=== PATIENT | male | born 1965 | race Caucasian/White ===

== ENCOUNTER 2016-09-17 16:10 | Inpatient (IN) | payer OTHER ==
[2016-09-17] MEDS ORDERED: NITROGLYCERIN OINT 1 INCH/GM PACKET TOPICAL STA (16:32)
[2016-09-17] MEDS ORDERED: ASPIRIN 81 MG CHEW PO STA (16:32)
--- NOTE | 2016-09-17 16:38 | ED ---
General Adult HPI - General Chief complaint: Chest Pain Stated complaint: Chest Pressure Time Seen by Provider: 09/17/16 16:28 Source: patient, RN notes reviewed Mode of arrival: wheelchair Limitations: no limitations - History of Present Illness Initial comments: Patient is a pleasant 51-year-old male presenting to the emergency department complaining of chest discomfort. Onset of symptoms was 3 or 4 days ago. Symptoms have been intermittent however today are more steady. Patient has pressure in the mid chest. No radiation. No associated dyspnea or nausea or diaphoresis. Discomfort has been as high as a 4-5/10. Discomfort is currently only 1/10. No history of similar symptoms previously. Discomfort is not positional. Discomfort is nonexertional. No leg pain or swelling. No cough or fever. - Related Data Home Medications Medication Instructions Recorded Confirmed Aspirin 81 mg PO DAILY 10/22/15 09/17/16 Ferrous Sulfate [Iron (65 MG 325 mg PO DAILY 09/17/16 09/17/16 Elemental)] Multivitamins, Thera [Multivitamin 1 tab PO DAILY 09/17/16 09/17/16 (formulary)] Naproxen Sodium [Aleve] 220 mg PO BID PRN 09/17/16 09/17/16 Allergies Allergy/AdvReac Type Severity Reaction Status Date / Time oxycodone HCl [From Percocet] AdvReac VOMITING, Verified 09/17/16 16:42 HOT FLASHES, ROOM SPINNING Review of Systems ROS Statement: Those systems with pertinent positive or pertinent negative responses have been documented in the HPI. ROS Other: All systems not noted in ROS Statement are negative. Constitutional: Denies: fever Eyes: Denies: eye pain ENT: Denies: ear pain Respiratory: Denies: cough, dyspnea Cardiovascular: Reports: chest pain. Denies: palpitations Endocrine: Denies: fatigue Gastrointestinal: Denies: abdominal pain Genitourinary: Denies: dysuria Musculoskeletal: Denies: back pain Skin: Denies: rash Neurological: Denies: weakness Past Medical History Past Medical History: No Reported History History of Any Multi-Drug Resistant Organisms: None Reported Past Surgical History: No Surgical Hx Reported Past Psychological History: No Psychological Hx Reported Smoking Status: Never smoker Past Alcohol Use History: None Reported Past Drug Use History: None Reported General Exam Limitations: no limitations General appearance: alert, in no apparent distress Head exam: Present: atraumatic Eye exam: Present: normal appearance, PERRL ENT exam: Present: normal oropharynx Neck exam: Present: normal inspection Respiratory exam: Present: normal lung sounds bilaterally. Absent: chest wall tenderness Cardiovascular Exam: Present: regular rate, normal rhythm Expanded Peripheral pulses: 2+: Radial (R), Radial (L), Dorsalis Pedis (R), Dorsalis Pedis (L) GI/Abdominal exam: Present: soft. Absent: tenderness Extremities exam: Present: normal inspection. Absent: pedal edema, calf tenderness Neurological exam: Present: alert Psychiatric exam: Present: normal affect, normal mood Skin exam: Absent: rash Course Vital Signs 09/17/16 09/17/16 09/17/16 16:16 16:29 16:36 Temperature 98.2 F Pulse Rate 71 76 Pulse Rate [ 67 Dehydrator Tender ] Respiratory 18 18 Rate Blood Pressure 139/82 146/76 O2 Sat by Pulse 97 98 Oximetry 09/17/16 18:10 Temperature Pulse Rate 67 Pulse Rate [ Dehydrator Tender ] Respiratory 16 Rate Blood Pressure 129/76 O2 Sat by Pulse 95 Oximetry EKG Findings - EKG Comments: EKG Findings:: Normal sinus rhythm at 68. Normal intervals. Normal axis. Normal QRS. Normal ST-T. Medical Decision Making - Medical Decision Making Patient reexamined and resting comfortably in bed. Dr. Wharton has been paged for admission. - Lab Data Result diagrams: 09/17/16 16:27 09/17/16 16:27 Lab Results 09/17/16 09/17/16 09/17/16 Range/Units 16:27 16:27 16:27 WBC 9.1 (3.8-10.6) k/uL RBC 4.79 (4.30-5.90) m/uL Hgb 14.1 (13.0-17.5) gm/dL Hct 42.8 (39.0-53.0) % MCV 89.4 (80.0-100.0) fL MCH 29.5 (25.0-35.0) pg MCHC 33.0 (31.0-37.0) g/dL RDW 13.4 (11.5-15.5) % Plt Count 287 (150-450) k/uL Neutrophils % 59 % Lymphocytes % 29 % Monocytes % 6 % Eosinophils % 3 % Basophils % 1 % Neutrophils # 5.3 (1.3-7.7) k/uL Lymphocytes # 2.6 (1.0-4.8) k/uL Monocytes # 0.5 (0-1.0) k/uL Eosinophils # 0.3 (0-0.7) k/uL Basophils # 0.1 (0-0.2) k/uL PT (9.0-12.0) sec INR (<1.1) APTT (22.0-30.0) sec Sodium 141 (137-145) mmol/L Potassium 4.2 (3.5-5.1) mmol/L Chloride 106 (98-107) mmol/L Carbon Dioxide 24 (22-30) mmol/L Anion Gap 11 mmol/L BUN 22 H (9-20) mg/dL Creatinine 1.00 (0.66-1.25) mg/dL Est GFR (MDRD) Af Amer >60 (>60 ml/min/1.73 sqM) Est GFR (MDRD) Non-Af >60 (>60 ml/min/1.73 sqM) Glucose 103 H (74-99) mg/dL Calcium 9.8 (8.4-10.2) mg/dL Magnesium 1.9 (1.6-2.3) mg/dL Total Bilirubin 0.6 (0.2-1.3) mg/dL AST 37 (17-59) U/L ALT 35 (21-72) U/L Alkaline Phosphatase 48 (38-126) U/L Total Creatine Kinase 575 H (55-170) U/L CK-MB (CK-2) 1.1 (0.0-2.4) ng/mL CK-MB (CK-2) Rel Index 0.2 Troponin I <0.012 (0.000-0.034) ng/mL Total Protein 7.9 (6.3-8.2) g/dL Albumin 4.6 (3.5-5.0) g/dL 09/17/16 Range/Units 16:27 WBC (3.8-10.6) k/uL RBC (4.30-5.90) m/uL Hgb (13.0-17.5) gm/dL Hct (39.0-53.0) % MCV (80.0-100.0) fL MCH (25.0-35.0) pg MCHC (31.0-37.0) g/dL RDW (11.5-15.5) % Plt Count (150-450) k/uL Neutrophils % % Lymphocytes % % Monocytes % % Eosinophils % % Basophils % % Neutrophils # (1.3-7.7) k/uL Lymphocytes # (1.0-4.8) k/uL Monocytes # (0-1.0) k/uL Eosinophils # (0-0.7) k/uL Basophils # (0-0.2) k/uL PT 10.3 (9.0-12.0) sec INR 1.0 (<1.1) APTT 24.5 (22.0-30.0) sec Sodium (137-145) mmol/L Potassium (3.5-5.1) mmol/L Chloride (98-107) mmol/L Carbon Dioxide (22-30) mmol/L Anion Gap mmol/L BUN (9-20) mg/dL Creatinine (0.66-1.25) mg/dL Est GFR (MDRD) Af Amer (>60 ml/min/1.73 sqM) Est GFR (MDRD) Non-Af (>60 ml/min/1.73 sqM) Glucose (74-99) mg/dL Calcium (8.4-10.2) mg/dL Magnesium (1.6-2.3) mg/dL Total Bilirubin (0.2-1.3) mg/dL AST (17-59) U/L ALT (21-72) U/L Alkaline Phosphatase (38-126) U/L Total Creatine Kinase (55-170) U/L CK-MB (CK-2) (0.0-2.4) ng/mL CK-MB (CK-2) Rel Index Troponin I (0.000-0.034) ng/mL Total Protein (6.3-8.2) g/dL Albumin (3.5-5.0) g/dL - Radiology Data Radiology results: image reviewed (Chest x-ray shows no acute process) Disposition Clinical Impression: Chest pain Disposition: ADMITTED IP TO THIS HOSP
[2016-09-17 16:46] LABS: Basophils # (A) 0.1 k/uL (0-0.2); Basophils % (A) 1 %; CH 30.1; CHCM 33.8; Eosinophils # (A) 0.3 k/uL (0-0.7); Eosinophils % (A) 3 %; HCT 42.8 % (39.0-53.0); HDW 2.44; HGB 14.1 gm/dL (13.0-17.5); Luc # (Auto) 0.19; Luc % (Auto) 2; Lymphocytes # (A) 2.6 k/uL (1.0-4.8); Lymphocytes % (A) 29 %; MCH 29.5 pg (25.0-35.0); MCV 89.4 fL (80.0-100.0); Mean Platelet Volume 6.9; Monocytes # (A) 0.5 k/uL (0-1.0); Monocytes % (A) 6 %; Neutrophils # (A) 5.3 k/uL (1.3-7.7); Neutrophils % (A) 59 %; RBC 4.79 m/uL (4.30-5.90); RDW 13.4 % (11.5-15.5); WBC 9.1 k/uL (3.8-10.6); WBC (Perox) 8.79
[2016-09-17 16:55] LABS: ALT 35 U/L (21-72); AST 37 U/L (17-59); Alkaline Phosphatase 48 U/L (38-126); Anion Gap 11 mmol/L; Blood Urea Nitrogen 22 mg/dL (9-20); Calcium 9.8 mg/dL (8.4-10.2); Carbon Dioxide 24 mmol/L (22-30); Chloride 106 mmol/L (98-107); Glucose 103 mg/dL (74-99); Magnesium 1.9 mg/dL (1.6-2.3); Non-African American GFR(MDRD) >60 (>60 ml/min/1.73 sqM); Potassium 4.2 mmol/L (3.5-5.1); Sodium 141 mmol/L (137-145); Total Bilirubin 0.6 mg/dL (0.2-1.3); Total Protein 7.9 g/dL (6.3-8.2)
[2016-09-17 17:03] LABS: Partial Thromboplastin Time 24.5 sec (22.0-30.0); Prothrombin Time 10.3 sec (9.0-12.0)
[2016-09-17 17:17] LABS: Creatine Kinase 575 U/L (55-170)
--- NOTE | 2016-09-17 17:18 | XR ---
EXAMINATION TYPE: XR chest 2V DATE OF EXAM: 09/17/2016 4:59 PM COMPARISON: NONE HISTORY: Chest pressure TECHNIQUE: Frontal and lateral views of the chest are obtained. FINDINGS: Heart and mediastinum are normal. Lungs are clear. Diaphragm is normal. Bony thorax appear s normal. There are chest leads. IMPRESSION: Normal chest
[2016-09-17 17:29] LABS: Creatine Kinase MB 1.1 ng/mL (0.0-2.4); Troponin I <0.012 ng/mL (0.000-0.034)
[2016-09-17] MEDS ORDERED: NITROGLYCERIN SL TABS 0.4 MG TAB SUBLINGUAL PRN (19:06)
[2016-09-17 22:50] LABS: Creatine Kinase 429 U/L (55-170)
[2016-09-17 23:04] LABS: Creatine Kinase MB 0.8 ng/mL (0.0-2.4); Troponin I <0.012 ng/mL (0.000-0.034)
[2016-09-18] MEDS: NITROGLYCERIN OINT 1 INCH/GM PACKET TOPICAL SCH ×2 (00:08→04:59)
[2016-09-18 05:14] LABS: Cholesterol 185 mg/dL (<200); HDL Cholesterol 41 mg/dL (40-60); Triglycerides 169 mg/dL (<150)
[2016-09-18 05:20] LABS: Creatine Kinase 407 U/L (55-170)
[2016-09-18 05:32] LABS: Creatine Kinase MB 0.7 ng/mL (0.0-2.4); Troponin I <0.012 ng/mL (0.000-0.034)
--- NOTE | 2016-09-18 08:52 | P.CRDCN ---
History of Present Illness Consult date: 09/18/16 History of present illness: This is a 51-year-old gentleman with no significant past medical history has been running having a tight feeling in the lower mid sternal area for the last 3 to4 days. The pain is felt most at rest. He claims that physical exertion makes it less intense. Yesterday the pain became more constant. This is a mild discomfort. He did not have any nausea vomiting or sweating. Because of ongoing chest pain patient came to the emergency room. EKGs did not reveal any acute changes. Cardiac enzymes studies are negative. Patient was treated with Nitropaste without much relief. Patient denies any acid reflux. Denies any previous hypertension diabetes angina or myocardial infarction. His father and grandfather had congestive heart failure. No family history of previous myocardial infarction. His cholesterol levels are normal. We discussed about the further evaluation and the choice of stress test versus cardiac catheterization. Patient preferred to have a stress test and a stress echo is being scheduled. Further recommendation will depend upon the findings on the stress test Review of Systems REVIEW OF SYSTEMS: CONSTITUTIONAL:. Patient is doing well. No complaints of fever or chills EYES: Denies diplopia, blurring of vision EARS, NOSE, MOUTH, THROAT: Denies headaches, denies sore throat. CARDIOVASCULAR: As per HPI RESPIRATORY: Denies shortness of breath, denies cough. GASTROINTESTINAL: Denies change in appetite, denies abdominal pain, denies diarrhea GENITOURINARY: Denies hematuria, denies infections. MUSKULOSKELETAL: Denies pain, denies swelling. Denies any cramps or claudication INTEGUMENTARY: Denies rash, denies eczema. NEUROLOGICAL: Denies focal weakness, or visual disturbance. Denies any dizziness or syncope PSYCHIATRIC: Denies anxiety, denies depression. HEMATOLOGIC/LYMPHATIC: Denies any bleeding, denies enlarged lymph nodes. Past Medical History Past Medical History: No Reported History Additional Past Medical History / Comment(s): slightly high cholestrol watching diet and taking fish oil, kidney stones in the past History of Any Multi-Drug Resistant Organisms: None Reported Past Surgical History: Appendectomy Additional Past Surgical History / Comment(s): colonoscopy negative Additional Past Anesthesia/Blood Transfusion Reaction / Comment(s): no hx of surgeries Past Psychological History: No Psychological Hx Reported Smoking Status: Never smoker Past Alcohol Use History: None Reported Past Drug Use History: None Reported - Past Family History Father Family Medical History: Congestive Heart Failure (CHF), Diabetes Mellitus Additional Family Medical History / Comment(s): kidney and liver failure - passed at 72 Mother Family Medical History: Cancer Additional Family Medical History / Comment(s): breast cancer Medications and Allergies Home Medications Medication Instructions Recorded Confirmed Type Aspirin 81 mg PO DAILY 10/22/15 09/17/16 History Ferrous Sulfate [Iron (65 MG 325 mg PO DAILY 09/17/16 09/17/16 History Elemental)] Fish Oil/Dha/Epa [Fish Oil 1,200 1 each PO BID 09/17/16 09/17/16 History mg Fish Oil] Multivitamins, Thera [Multivitamin 1 tab PO DAILY 09/17/16 09/17/16 History (formulary)] Naproxen Sodium [Aleve] 220 mg PO BID PRN 09/17/16 09/17/16 History Allergies Allergy/AdvReac Type Severity Reaction Status Date / Time oxycodone HCl [From Percocet] AdvReac VOMITING, Verified 09/17/16 16:42 HOT FLASHES, ROOM SPINNING Physical Exam Vitals: Vital Signs Temp Pulse Pulse Pulse Resp BP BP 09/18/16 08:39 09/18/16 07:14 98.7 F 78 16 111/55 09/18/16 04:00 97.8 F 59 L 16 99/51 09/18/16 03:37 68 18 09/18/16 00:00 98.4 F 67 16 118/66 09/17/16 23:22 61 18 09/17/16 20:00 69 18 09/17/16 19:50 98.4 F 97 18 122/74 Pulse Ox 09/18/16 08:39 97 09/18/16 07:14 94 L 09/18/16 04:00 93 L 09/18/16 03:37 09/18/16 00:00 92 L 09/17/16 23:22 09/17/16 20:00 09/17/16 19:50 97 Intake and Output 09/17/16 09/18/16 09/18/16 22:59 06:59 14:59 Other: Voiding Method Toilet Toilet # Voids 2 Weight 111.13 kg 111.13 kg GENERAL EXAM: Patient is alert and oriented and doesn't appear to be in any acute distress HEENT: Normocephalic. Normal reaction of pupils, equal size, normal range of extraocular motion. No erythema or exudates in the throat. NECK: No masses, no nuchal rigidity. CHEST: No chest wall deformity. LUNGS: Equal air entry with no crackles or wheeze. HEART: S1 and S2 normal with no audible mumurs or gallops. Regular rhythm, femorals equal on both sides.. ABDOMEN: No hepatosplenomegaly, normal bowel sounds, no guarding or rigidity. SKIN: No rashes CENTRAL NERVOUS SYSTEM: No focal deficits. EXTREMITIES: No cyanosis, clubbing or edema. Results 09/17/16 16:27 09/17/16 16:27 Cardiac Enzymes 09/17/16 09/18/16 Range/Units 22:08 04:00 CK-MB (CK-2) 0.8 0.7 (0.0-2.4) ng/mL Troponin I <0.012 <0.012 (0.000-0.034) ng/mL Lipids 09/18/16 Range/Units 04:00 Triglycerides 169 H (<150) mg/dL Cholesterol 185 (<200) mg/dL HDL Cholesterol 41 (40-60) mg/dL Current Medications Generic Name Dose Route Start Last Admin Trade Name Freq PRN Reason Stop Dose Admin Aspirin 325 mg 09/18/16 09:00 Aspirin PO DAILY NAHUN Nitroglycerin 0.4 mg 09/17/16 19:06 Nitrostat SUBLINGUAL Q5M PRN Chest Pain Intake and Output 09/17/16 09/18/16 09/18/16 22:59 06:59 14:59 Other: Voiding Method Toilet Toilet # Voids 2 Weight 111.13 kg 111.13 kg EKG Interpretations (text) Sinus rhythm Assessment and Plan (1) Chest pain Status: Acute Plan: Patient is admitted with the recurrent prolonged chest discomfort with negative enzymes and EKGs. Patient doesn't have any significant risk factors. We'll proceed with stress echocardiogram. If that is negative patient could be discharged home. If the test is positive, patient may need cardiac catheterization.
--- NOTE | 2016-09-18 12:05 | P.HPIM ---
History of Present Illness If D1-year-old male presented to the emergency room with complaints of intermittent chest pressure not related to activity no nausea diaphoresis or radiation. Patient has negative medical history at this point Review of Systems Cardiovascular: Reports chest pain Past Medical History Past Medical History: No Reported History Additional Past Medical History / Comment(s): slightly high cholestrol watching diet and taking fish oil, kidney stones in the past History of Any Multi-Drug Resistant Organisms: None Reported Past Surgical History: Appendectomy Additional Past Surgical History / Comment(s): colonoscopy negative Additional Past Anesthesia/Blood Transfusion Reaction / Comment(s): no hx of surgeries Past Psychological History: No Psychological Hx Reported Smoking Status: Never smoker Past Alcohol Use History: None Reported Past Drug Use History: None Reported - Past Family History Father Family Medical History: Congestive Heart Failure (CHF), Diabetes Mellitus Additional Family Medical History / Comment(s): kidney and liver failure - passed at 72 Mother Family Medical History: Cancer Additional Family Medical History / Comment(s): breast cancer Medications and Allergies Home Medications Medication Instructions Recorded Confirmed Type Aspirin 81 mg PO DAILY 10/22/15 09/17/16 History Ferrous Sulfate [Iron (65 MG 325 mg PO DAILY 09/17/16 09/17/16 History Elemental)] Fish Oil/Dha/Epa [Fish Oil 1,200 1 each PO BID 09/17/16 09/17/16 History mg Fish Oil] Multivitamins, Thera [Multivitamin 1 tab PO DAILY 09/17/16 09/17/16 History (formulary)] Naproxen Sodium [Aleve] 220 mg PO BID PRN 09/17/16 09/17/16 History Allergies Allergy/AdvReac Type Severity Reaction Status Date / Time oxycodone HCl [From Percocet] AdvReac VOMITING, Verified 09/17/16 16:42 HOT FLASHES, ROOM SPINNING Physical Exam Vitals: Vital Signs Temp Pulse Pulse Pulse Resp BP BP 09/18/16 08:39 09/18/16 07:14 98.7 F 78 16 111/55 09/18/16 04:00 97.8 F 59 L 16 99/51 09/18/16 03:37 68 18 09/18/16 00:00 98.4 F 67 16 118/66 09/17/16 23:22 61 18 09/17/16 20:00 69 18 09/17/16 19:50 98.4 F 97 18 122/74 Pulse Ox 09/18/16 08:39 97 09/18/16 07:14 94 L 09/18/16 04:00 93 L 09/18/16 03:37 09/18/16 00:00 92 L 09/17/16 23:22 09/17/16 20:00 09/17/16 19:50 97 Intake and Output 09/17/16 09/18/16 09/18/16 22:59 06:59 14:59 Other: Voiding Method Toilet Toilet Toilet # Voids 2 Weight 111.13 kg 111.13 kg - Constitutional General appearance: obese - EENT Eyes: PERRLA Ears: bilateral: normal - Neck Neck: normal ROM - Respiratory Respiratory: negative: CTA - Cardiovascular Rhythm: regular - Gastrointestinal General gastrointestinal: soft - Integumentary Integumentary: normal - Neurologic Neurologic: CNII-XII intact - Musculoskeletal Musculoskeletal: gait normal - Psychiatric Psychiatric: A&O x's 3, appropriate affect, intact judgment & insight Results CBC & Chem 7: 09/17/16 16:27 09/17/16 16:27 Labs: Abnormal Lab Results - Last 24 Hours (Table) 09/17/16 09/18/16 09/18/16 Range/Units 22:08 04:00 04:00 Total Creatine Kinase 429 H 407 H (55-170) U/L Triglycerides 169 H (<150) mg/dL LDL Cholesterol, Calc 110 H (0-99) mg/dL Chest x-ray: report reviewed Thrombosis Risk Factor Assmnt - Choose All That Apply Each Factor Represents 1 point: Age 41-60 years, Obesity (BMI >25) Thrombosis Risk Factor Assessment Total Risk Factor Score: 2 Thrombosis Risk Factor Assessment Level: Low Risk Assessment and Plan Plan: Assessment Chest pain Hyperlipidemia Plan Cardiology consultation Awaiting results of stress test for discharge
[2016-09-18] MEDS: ASPIRIN 325 MG TAB PO SCH (12:13)
--- NOTE | 2016-09-18 12:18 | ECHOS ---
DATE OF SERVICE: 09/18/2016 AGE: 51Y SEX: M HT: 71 WT: 245 lbs. Protocol Oscar: X Others: Stress Echo Stage: IV Dur. of Exercise: 10 minutes *Heart Rate Blood Pressure *Rest: 69 Rest: 120/47 * *Max. Achieved: 150 Maximum BP: 194/55 85% PMHR: 142 100% PMHR: 167 *METS: 11.3 INDICATIONS: Chest pain. MEDICATIONS: CLINICAL INFORMATION: Chest pain and family history of coronary artery disease. Resting ECG shows sinus rhythm, rate of 69 beats per minute, MS interval 0.16, QRS 0.08, normal ST-T waves. Utilizing a standard Oscar protocol, a symptom limited treadmill test was performed. Patient exercised for total of 10 minutes, attained a peak heart rate of 150 beats per minute, which is approximately 90% of predicted maximum heart rate without any chest pain or pressure. Noted to have 1.[address] segment depression in the inferior leads at peak exertion without any associated symptoms. Baseline images show normal thickening and contractility. Postexercise images shows mild hypokinesis of the inferior wall, basal inferior wall and also apex consistent with stress induced wall motion abnormalities or exercise induced wall motion abnormalities and suggestive of underlying ischemia associated with EKG changes without any symptoms. 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 Abnormal stress echocardiogram with hypokinesis of the inferior wall and apex suggestive of exercise induced ischemia without any symptoms. 2. Patient also had 1.[address] segment depression in the inferior leads without any symptoms suggestive of ischemia also. 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
[2016-09-18] MEDS ORDERED: ALPRAZolam 0.5 MG TAB PO PRN (17:33)
[2016-09-18] MEDS ORDERED: SODIUM CHLORIDE 0.9% 1,000 ML in EMPTY BAG 1 BAG IV ONE (17:33)
[2016-09-18] MEDS ORDERED: ASPIRIN 325 MG TAB PO STA (17:33)
[2016-09-18] MEDS ORDERED: ATORVASTATIN 80 MG TAB PO STA (17:33)
[2016-09-18] MEDS ORDERED: NITROGLYCERIN SL TABS 0.4 MG TAB SUBLINGUAL PRN (17:33)
[2016-09-18] MEDS ORDERED: ALPRAZolam 0.25 MG TAB PO PRN (17:33)
[2016-09-19] MEDS: ASPIRIN 325 MG TAB PO SCH (06:24)
[2016-09-19] MEDS ORDERED: IV FLUID CONTINUATION 1,000 ML IV ONE (07:40)
[2016-09-19] MEDS ORDERED: MIDAZOLAM 2 MG/2 ML VIAL ONE ×2 (07:49→10:55)
[2016-09-19] MEDS ORDERED: fentaNYL (PF) 50 MCG/ML 2 ML AMP ONE (07:49)
[2016-09-19] MEDS ORDERED: fentaNYL (PF) 50 MCG/ML 2 ML AMP IV ONE (08:14)
[2016-09-19] MEDS ORDERED: MIDAZOLAM 2 MG/2 ML VIAL IV ONE (08:14)
[2016-09-19] MEDS ORDERED: LIDOCAINE 2% INJ 20 MG/ML SQ ONE (08:17)
[2016-09-19] MEDS ORDERED: IOHEXOL 350 MG/ML 100 ML BOTTLE INJ ONE (08:49)
--- NOTE | 2016-09-19 08:52 | P.PCN ---
Date of Procedure: 09/19/16 Preoperative Diagnosis: Chest pain and positive stress test Postoperative Diagnosis: Significant multivessel disease Procedure(s) Performed: Left heart catheterization without left ventriculography Description of Procedure: HISTORY: This is a 51-year-old gentleman with no significant past medical history except cardiac disease in father came to the hospital with complaints of recurrent chest pains over the last 3 days. EKGs and cardiac enzymes are negative. Patient had a stress test which showed ST-T abnormalities and also wall motion abnormalities on the stress echo. Patient is advised to have cardiac catheterization for definitive diagnosis. CONSENT:I have discussed the risks, benefits and alternative therapies for the above-mentioned procedure and for both sedation/analgesia as well as necessary blood product administration, if indicated, as they pertain to this patient. The patient has indicated understanding and acceptance of the risks and procedures discussed. CONSCIOUS SEDATION: Patient is given IV Versed 1 mg and fentanyl 50 mg for conscious sedation lasting 30 minutes. PROCEDURE: Patient was brought to the lab in a fasting state. Patient was given some IV sedation. The right groin is infiltrated with lidocaine and right femoral artery was entered using Seldinger technique. A 6-Micronesian catheter was left in place and selective coronary arteriography was performed. Patient tolerated the procedure well. Femoral angiogram was performed and Angio-Seal was applied for hemostasis. No immediate complications were noted and patient was transferred to [facility] in a stable condition HEMODYNAMICS: The aortic pressure is 130/70. Left ankle end-diastolic pressure 8-12. There was no gradient across the aortic valve SELECTIVE CORONARY ARTERIOGRAPHY: LEFT MAIN: Normal length and patent THE LEFT ANTERIOR DESCENDING CORONARY ARTERY: Good caliber vessel which is calcified in the proximal portion. There is about 60-70 % lesion in the proximal LAD. The ostium of the D1 also has a disease with about 60-70% lesion. The mid diagonal also has about 50% lesion. THE LEFT CIRCUMFLEX AND IS CORONARY ARTERY: Fair caliber vessel without any significant obstructive disease THE RIGHT CORONARY ARTERY: Dominant vessel giving rise to PDA and PLV branches. The PLV branch has 90% stenosis. There is a 90% stenosis of the small PLV branch. The first division of the PLV branch also has about 70% stenosis LEFT VENTRICULOGRAPHY: Not performed FINAL IMPRESSION: Diffuse coronary artery disease with a moderate to significant lesion in the proximal LAD. Significant disease involving the PLV branch and also PDA branch. Moderate disease in the diagonal PLAN: Possible stent placement of the PLV branch and FFR of the LAD. If the proximal LAD lesion seems to be significant patient may need stent placement. Patient is being evaluated by Dr. HANNAH Patel PROGNOSIS: Guarded
[2016-09-19] MEDS ORDERED: ATORVASTATIN 80 MG TAB PO SCH (09:00)
[2016-09-19] MEDS ORDERED: diphenhydrAMINE 50 MG/ML 1 ML VIAL ONE (10:55)
[2016-09-19] MEDS ORDERED: diphenhydrAMINE 50 MG/ML 1 ML VIAL IVP ONE (11:04)
[2016-09-19] MEDS: MIDAZOLAM 2 MG/2 ML VIAL IVP ONE ×3 (11:04→11:59)
[2016-09-19] MEDS ORDERED: BIVALIRUDIN 250 MG in SODIUM CHLORIDE 0.9% 50 ML IV ONE ×2 (11:15→11:51)
[2016-09-19] MEDS ORDERED: BIVALIRUDIN BOLUS 250 MG/50 ML IV ONE (11:15)
[2016-09-19] MEDS ORDERED: NITROGLYCERIN 1000MCG/10ML SYRINGE INTRACORON ONE ×2 (11:29→12:11)
[2016-09-19] MEDS ORDERED: HYDROmorphone 2 MG/ML 1 ML SYRINGE ONE (11:31)
[2016-09-19] MEDS ORDERED: HYDROmorphone 2 MG/ML 1 ML SYRINGE IVP ONE (11:35)
[2016-09-19] MEDS: NITROGLYCERIN 1000MCG/10ML SYRINGE INTRACORON ONE ×2 (11:45→12:04)
[2016-09-19] MEDS ORDERED: ADENOSINE 90 MG in SODIUM CHLORIDE 0.9% 60 ML IVP ONE (11:48)
[2016-09-19] MEDS ORDERED: SODIUM CHLORIDE 0.9% 1,000 ML IV ONE (12:23)
[2016-09-19] MEDS ORDERED: CLOPIDOGREL 75 MG TAB ONE (12:29)
[2016-09-19] MEDS ORDERED: CLOPIDOGREL 75 MG TAB PO ONE (12:38)
[2016-09-19] MEDS ORDERED: IOHEXOL 300 MG/ML 100 ML BOTTLE IV ONE (12:43)
[2016-09-19] MEDS ORDERED: MAG HYDROX/AL HYDROX/SIMETH 30 ML CUP PO PRN (12:55)
[2016-09-19] MEDS ORDERED: NITROGLYCERIN SL TABS 0.4 MG TAB SUBLINGUAL PRN (12:55)
[2016-09-19] MEDS ORDERED: ZOLPIDEM 5 MG TAB PO PRN (12:55)
[2016-09-19] MEDS ORDERED: ATROPINE SULFATE 0.1 MG/ML 10ML SYRINGE IV PRN (12:55)
[2016-09-19] MEDS ORDERED: RX INFO: IV CONTRAST WAS GIVEN 1 EACH MISC MISCELLANE PRN (12:55)
--- NOTE | 2016-09-19 14:50 | PTCA ---
DATE OF SERVICE: 09/19/2016 PROCEDURE: 1. Percutaneous transluminal coronary angioplasty and stenting of PDA branch of a dominant right coronary artery. 2. Fractional flow reserve assessment of proximal LAD. 3. Percutaneous transluminal coronary angioplasty and stenting of proximal LAD. PERFORMED BY: Dr. Bunny Patel. CLINICAL INFORMATION: Mr. Ethan Khalil is a 51-year-old gentleman with strong family history of CAD who presented to the hospital with chest pain, had a positive stress test. There was evidence of inferoapical hypokinesia with ST-segment depression, and he was advised cardiac catheterization. Dr. Gaytan performed the cardiac catheterization which revealed a 90% PDA lesion as well as a 60% proximal LAD lesion and a calcified segment with haziness. He was advised intervention that was performed on the same day. PROCEDURE NOTE: The existing 6 Solomon Islander introducer in the right femoral artery was used to perform the procedure. I used an Alright guide catheter of 6 Solomon Islander caliber to cannulate the RCA. A BMW wire was used to cross the lesion. Predilatation was performed using a 2.25 caliber, 15 mm long Trek balloon. Following that, I deployed a 2.25 caliber, 18 mm long Xience stent with excellent angiographic result. Patient had chest pain. No significant EKG changes. Excellent angiographic result was achieved. I then turned my attention to the LAD. The Alright guide catheter was taken out and a standard left Florencio guide catheter was used to cannulate the left coronary artery. I advanced a Wetmore wire and kept the wire in the mid LAD. Adenosine was infused as per protocol and fractional flow reverse assessment was performed. FFR was 45. Using the same wire, I went ahead and I predilated the lesion in the proximal LAD with a 2.5 caliber, NC Trek balloon of 8 mm length and deployed a 3.25 caliber, 8 mm long Xience stent at 12 atmospheres. Excellent angiographic result was achieved. I then measured the FFR again with the wire in the distal LAD and also in the major diagonal. On both these occasions, FFR was 0.79. This suggested that there was a distal lesion, and there was another plaque noted beyond the stented segment before the vessel bifurcates into an LAD and diagonal and also a septal branch. This was a moderate-sized plaque, and I felt intervention of this plaque would be associated with the large branches that are involved in the lesion. I am therefore recommending no intervention for this; instead we will pursue medical therapy, perform a stress test as an outpatient. I discussed this with the patient and also spoke to the family members. I gave him Angiomax bolus and infusion as per protocol and also gave him 600 mg of Plavix. The sheath was taken out and Angio-Seal device used to secure hemostasis. He was sent to the room in stable condition. Angiographic result of the PDA branch of RCA and proximal LAD was excellent. Distally in the mid LAD there was another plaque noted, but I do not believe intervention is necessary at this time. We will see how he does with a stress test. Additionally there was a diagonal branch that came off just after the stented segment, and this diagonal has a 40% to 50% unchanged stenosis. I expect the patient will be discharged tomorrow. He will be followed up with an outpatient stress test. For this intervention procedure, I gave him conscious sedation with Dilaudid and also with Versed and Benadryl for a total duration of one hour. Patient was monitored closely.
--- NOTE | 2016-09-19 14:53 | LTR ---
September 19, 2016 RE: Ethan Khalil Hanh Dear Mitchell, Thank you for the opportunity to participate in the care of Mr. Ethan Khalil. Please find enclosed my detailed PTCA report for your records. Excellent angiographic result was achieved on the proximal LAD as well as the PDA branch of RCA. However, there is a mid LAD lesion which needs to be followed non-invasively by way of a stress test. I am not recommending intervention, given the fact there are large-sized branches. I discussed this with the patient. No immediate intervention necessary. A 4-week stress test would be appropriate. Thank you for your referral. Please call with questions. Sincerely, PASTORA KENNEY MD
[2016-09-19] MEDS ORDERED: ATROPINE SULFATE 0.1 MG/ML 10ML SYRINGE IV STA (16:46)
[2016-09-19] MEDS: SODIUM CHLORIDE 0.9% 1,000 ML IV SCH ×2 (16:49→23:18)
[2016-09-19] MEDS: METOPROLOL TARTRATE 12.5 MG TAB PO SCH (20:45)
[2016-09-20 06:18] LABS: Basophils % (A) 0 %; CH 29.7; Eosinophils # (A) 0.2 k/uL (0-0.7); Eosinophils % (A) 2 %; HCT 38.9 % (39.0-53.0); HDW 2.39; HGB 12.6 gm/dL (13.0-17.5); Luc # (Auto) 0.14; Luc % (Auto) 2; Lymphocytes % (A) 24 %; MCH 29.3 pg (25.0-35.0); MCHC 32.4 g/dL (31.0-37.0); MCV 90.4 fL (80.0-100.0); Mean Platelet Volume 6.9; Monocytes # (A) 0.5 k/uL (0-1.0); Monocytes % (A) 6 %; Neutrophils # (A) 5.8 k/uL (1.3-7.7); Neutrophils % (A) 67 %; RDW 13.1 % (11.5-15.5); WBC 8.6 k/uL (3.8-10.6); WBC (Perox) 9.11
[2016-09-20 06:35] LABS: Anion Gap 9 mmol/L; Blood Urea Nitrogen 17 mg/dL (9-20); Carbon Dioxide 25 mmol/L (22-30); Chloride 108 mmol/L (98-107); Glucose 104 mg/dL (74-99); Non-African American GFR(MDRD) >60 (>60 ml/min/1.73 sqM); Potassium 4.6 mmol/L (3.5-5.1); Sodium 142 mmol/L (137-145)
[2016-09-20] MEDS: METOPROLOL TARTRATE 12.5 MG TAB PO SCH (07:56)
[2016-09-20] MEDS ORDERED: CLOPIDOGREL 75 MG TAB PO SCH (09:00)
[2016-09-20] MEDS ORDERED: ASPIRIN 81 MG CHEW PO SCH (09:00)
--- NOTE | 2016-09-20 11:40 | PN ---
DATE OF SERVICE: 09/19/2016 INTERVAL HISTORY: Mr. Khalil is a 51-year-old male with no significant past medical history, admitted to the hospital with complaints of tightness in the chest for the past one week. The patient felt chest tightness as rest as well, mostly at rest. Cardiac enzymes and EKG have been negative. The patient had a stress test done, which was abnormal. Subsequently the patient was taken for cardiac catheterization and stenting of PDA branch of the right coronary artery and proximal LAD. The patient is currently ( ) and patient states that he is feeling much better now. Denied any chest pressure. No nausea or vomiting. The patient had episode of dizziness with bradycardia this afternoon. Heart rate went low to 36 beats per minute, which has resolved at this time. Currently denies any dizziness or lightheadedness. REVIEW OF SYSTEMS: CONSTITUTIONAL: No fever. No chills. RESPIRATORY: No cough or sputum production. CARDIOVASCULAR: No chest pain or shortness of breath. ABDOMEN: No nausea, no vomiting. GENITOURINARY: Negative. PSYCHIATRY: Negative. Current medications are reviewed. PHYSICAL EXAMINATION: A 51-year-old male, lying in bed, comfortable, awake, alert, oriented x3. No apparent distress. VITALS: Blood pressure is 106/50, pulse is 68, respirations 16, temperature afebrile, pulse ox 97% on room air. HEENT: Atraumatic normocephalic. NECK: Supple. No JVD. HEART: S1, S2 heard. No murmurs or gallop, no rub. LUNGS: Bilateral good air entry present. No wheezing or crackles. ABDOMEN: Soft, nontender. Bowel sounds present. CENTRAL NERVOUS SYSTEM: Awake, alert, oriented. Cooperative. SKIN: No rashes or lesions. LABORATORY DATA: LDL is 110. Triglycerides 169. Troponin x3 negative. DIAGNOSES: 1. Coronary artery disease, status post cardiac catheterization and stenting of PDA branch of RCA as well as proximal LAD, by Dr. Bunny Patel. Chest tightness on admission. 2. Abnormal stress echocardiogram. 3. Bradycardia earlier today, resolved now. DISCUSSION AND PLAN: Patient will be continued on aspirin, statins, and Plavix. Continue to monitor the patient closely. Cardiology is on board. Watch for any further bradycardic episodes. Further recommendations based on the clinical course.
[2016-09-20 13:22] VITALS: BP 117/64; PULSE 66; RESP 16; TEMP 98.8
--- NOTE | 2016-09-20 15:25 | P.PN ---
Subjective This is a pleasant 48-year-old gentleman with no significant past medical history in himself. He does have a family history of cardiac disease, and his father. He came to the hospital with complaints of recurrent chest pains in the last few days. EKG and cardiac enzymes were negative. Patient did have a stress test which showed ST-T wave abnormalities and also wall motion abnormalities on a stress echo. He underwent cardiac catheterization yesterday that showed diffuse coronary artery disease with a moderate to significant lesion in the proximal LAD and significant disease involving the PLV branch and also the PDA branch with moderate disease in the diagonal. He underwent stent placement of the PDA branch of the RCA and proximal LAD. There was another plaque noted to the mid LAD that was not believed to need immediate intervention. Patient did have an episode of bradycardia yesterday, likely vasovagal and was given atropine. Heart rate has been in the 60s. He has refused his metoprolol last night and this morning. He has been up walking without difficulties. Denies further complaints of chest discomfort. Says he is breathing quite a bit better than before stent placement. Objective - Vital Signs Vital signs: Vital Signs Temp 98.8 F 09/20/16 12:00 Pulse 68 09/20/16 12:00 Resp 16 09/20/16 12:00 BP 117/64 09/20/16 12:00 Pulse Ox 97 09/20/16 12:00 Intake & Output 09/19/16 09/20/16 09/20/16 18:59 06:59 18:59 Intake Total 1263.19 1100 656 Output Total 950 0 Balance 313.19 1100 656 Weight 111.13 kg Intake: IV 673.19 Intake, IV Titration 350 1100 Amount Sodium Chloride 0.9% 1, 350 1100 000 ml @ 100 mls/hr IV . Q10H NAHUN Rx#:[id number] Oral 240 656 Output: Urine 950 0 Other: Voiding Method Toilet Toilet Toilet # Voids 3 - Exam PHYSICAL EXAMINATION: HEENT: Head is atraumatic, normocephalic. Pupils equal, round. Neck is supple. There is no elevated jugular venous pressure. HEART EXAMINATION: Heart sounds regular, S1 and S2 normal. No murmur or gallop heard. CHEST EXAMINATION: Lungs are clear to auscultation and precussion. No chest wall tenderness is noted on palpation or with deep breathing. ABDOMEN: Soft, nontender. Bowel sounds are heard. No organomegaly noted. EXTREMITIES: 2+ peripheral pulses with no evidence of peripheral edema and no calf tenderness noted. Right groin puncture site soft without ecchymosis or hematoma.. NEUROLOGIC patient is awake, alert and oriented x3. . - Labs CBC & Chem 7: 09/20/16 05:23 09/20/16 05:23 Labs: Abnormal Lab Results - Last 24 Hours (Table) 09/20/16 09/20/16 Range/Units 05:23 05:23 Hgb 12.6 L (13.0-17.5) gm/dL Hct 38.9 L (39.0-53.0) % Chloride 108 H (98-107) mmol/L Glucose 104 H (74-99) mg/dL Assessment and Plan Plan: Assessment and plan #1 chest pain #2 coronary artery disease, status post stent placement #3 bradycardia, likely secondary to vasovagal episode From cardiology's perspective, patient is stable for discharge home. We will send him on metoprolol 12.5 mg by mouth daily. Importance of dual antiplatelet therapy was discussed with the patient as well as importance of recognizing signs of bleeding. He will follow-up in the office with Dr. Gaytan in one week. [employer]ICE SUPERVISOR note has been reviewed, I agree with a documented findings and plan of care. Patient was seen and examined.
[2016-09-20] MEDS ORDERED: ATORVASTATIN 80 MG TAB PO SCH (21:00)
--- NOTE | 2016-09-23 12:27 | DS ---
DATE OF ADMISSION: 09/18/2016 DATE OF DISCHARGE: 09/20/2016 DISCHARGE DIAGNOSES: 1. Coronary artery disease, status post cardiac catheterization and stenting of PDA branch of right coronary artery as well as proximal left anterior descending coronary artery by Dr. Bunny Patel. 2. Chest tightness, no complaints of chest tightness now. 3. Abnormal stress echocardiogram. 4. Bradycardia, resolved now. HOSPITAL COURSE: Mr. Khalil is a 51-year-old male without significant past medical history, was admitted to the hospital with complaints of tightness in the chest for the past one week and exertional chest pain and the patient was also having worse feeling chest tightness at rest. Cardiac enzymes and EKG are normal. Patient had a stress test done which was abnormal. Subsequently, the patient was taken to cardiac catheterization and stenting of PDA branch of right coronary artery and proximal LAD. Patient is currently chest pain free and his chest is feeling much better now. Otherwise, patient was having some ( ) which has been resolved. No further EKG changes. Otherwise, patient was cleared by Cardiology and they recommend to follow as an outpatient, currently patient is asymptomatic. Denied any complaints, asymptomatic. DISCHARGE MEDICAL EXAMINATION: A 51-year-old male lying in the bed comfortably, awake, alert and oriented x3, appears in no apparent distress. VITALS: Blood pressure is 117/64, pulse is 66, respirations 16, temperature afebrile, pulse ox 97% on room air. LABORATORY DATA: Reviewed. Discharge physical examination done. Discharge medications include: 1. Aspirin 81 mg p.o. daily. 2. Ferrous sulfate 325 mg p.o. daily. 3. Fish oil 1 each p.o. b.i.d. 4. Multivitamin 1 daily p.o. daily. 5. Atorvastatin 80 mg p.o. at bedtime. 6. Plavix 75 mg p.o. daily. 7. Metoprolol 12.5 mg p.o. daily. 8. Nitroglycerin sublingual q.5 minutes capsule 0.4 mg for chest pain. Activity as tolerated. Heart-healthy diet. Follow with Dr. Wharton in 1 to [address] Mitchell Wharton. Follow with Dr. Gaytan in 1 week. Home with self care.
== END 2016-09-20 15:31 | disposition home or self-care (01) | DRG 247 ==
LOC: EC 16:10 → 3OBS 19:06 → OBSVTOIN 09-18 15:50 → 6SEL 09-19 12:20
PROVIDERS: ADMIT Family Medicine; ATTEND Family Medicine
PROC: 4A033BC Measurement of Arterial Pressure, Coronary, Percutaneous Approach (ICD-10-PCS; principal; 2016-09-19 08:00)
PROC: 027135Z Dilation of Coronary Artery, Two Arteries with Two Drug-eluting Intraluminal Devices, Percutaneous Approach (ICD-10-PCS; principal; 2016-09-19 08:00)
PROC: 4A023N7 Measurement of Cardiac Sampling and Pressure, Left Heart, Percutaneous Approach (ICD-10-PCS; 2016-09-19 10:33)
PROC: B2111ZZ Fluoroscopy of Multiple Coronary Arteries using Low Osmolar Contrast (ICD-10-PCS; 2016-09-19 10:33)
DX: I25.10 Atherosclerotic heart disease of native coronary artery without angina pectoris (principal); E78.5 Hyperlipidemia, unspecified; Z79.82 Long term (current) use of aspirin; Z82.49 Family history of ischemic heart disease and other diseases of the circulatory system; Z87.442 Personal history of urinary calculi; Z79.899 Other long term (current) drug therapy; Z88.5 Allergy status to narcotic agent
CPT/HCPCS: 36415; 71020; 80048; 80053; 80061; 82550; 82553; 83735; 84484; 85025; 85610; 85730; 93005; 93017; 93350; 93458; 93571; 94760; 99285

== ENCOUNTER 2016-11-11 19:20 | Observation (INO) | payer OTHER ==
[2016-11-11] MEDS ORDERED: NITROGLYCERIN OINT 1 INCH/GM PACKET TOPICAL STA (19:32)
--- NOTE | 2016-11-11 19:35 | ED ---
General Adult HPI - General Chief complaint: Chest Pain Stated complaint: chest pain Time Seen by Provider: 11/11/16 19:30 Source: patient, RN notes reviewed Mode of arrival: wheelchair Limitations: no limitations - History of Present Illness Initial comments: This is a 51-year-old male who presents emergency Department complaining of chest discomfort. Patient states she's had little episodes of chest pain over the last couple of days but today he was at a movie with his and he had this heaviness across his chest and he became short of breath. Patient states that lasted an hour just prior to getting here he took an aspirin and the pain started to resolve. Patient states he had 2 stents recently placed and this pain seems similar to that except a little more intense. Patient denies any diaphoresis. Patient denies any radiation of the pain. Patient denies any nausea with the pain. Patient states currently is symptom-free. Patient denies any lightheadedness or dizziness with the pain. Patient denies any numbness or weakness. Patient denies abdominal pain patient denies nausea vomiting or diarrhea. - Related Data Home Medications Medication Instructions Recorded Confirmed Aspirin 81 mg PO DAILY 10/22/15 11/11/16 Ferrous Sulfate [Iron (65 MG 325 mg PO DAILY 09/17/16 11/11/16 Elemental)] Multivitamins, Thera [Multivitamin 1 tab PO DAILY 09/17/16 11/11/16 (formulary)] Clobetasol Propionate [Temovate] 1 applic TOPICAL DAILY PRN 11/11/16 11/11/16 Previous Rx's Medication Instructions Recorded Clopidogrel [Plavix] 75 mg PO DAILY #90 tab 09/20/16 Metoprolol Tartrate [Lopressor] 12.5 mg PO DAILY #90 tab 09/20/16 Allergies Allergy/AdvReac Type Severity Reaction Status Date / Time oxycodone HCl [From Percocet] AdvReac VOMITING, Verified 11/11/16 19:39 HOT FLASHES, ROOM SPINNING Review of Systems ROS Statement: Those systems with pertinent positive or pertinent negative responses have been documented in the HPI. ROS Other: All systems not noted in ROS Statement are negative. Past Medical History Past Medical History: Chest Pain / Angina Additional Past Medical History / Comment(s): slightly high cholestrol watching diet and taking fish oil, kidney stones in the past History of Any Multi-Drug Resistant Organisms: None Reported Past Surgical History: Appendectomy, Heart Catheterization With Stent Additional Past Surgical History / Comment(s): colonoscopy negative Additional Past Anesthesia/Blood Transfusion Reaction / Comment(s): no hx of surgeries Past Psychological History: No Psychological Hx Reported Smoking Status: Never smoker Past Alcohol Use History: None Reported Past Drug Use History: None Reported - Past Family History Father Family Medical History: Congestive Heart Failure (CHF), Diabetes Mellitus Additional Family Medical History / Comment(s): kidney and liver failure - passed at 72 Mother Family Medical History: Cancer Additional Family Medical History / Comment(s): breast cancer General Exam - General Exam Comments Initial Comments: GENERAL: Patient is well-developed and well-nourished. Patient is nontoxic and well- hydrated and is in mild distress. ENT: Neck is soft and supple. No significant lymphadenopathy is noted. Oropharynx is clear. Moist mucous membranes. Neck has full range of motion without eliciting any pain. EYES: The sclera were anicteric and conjunctiva were pink and moist. Extraocular movements were intact and pupils were equal round and reactive to light. Eyelids were unremarkable. PULMONARY: Unlabored respirations. Good breath sounds bilaterally. No audible rales rhonchi or wheezing was noted. CARDIOVASCULAR: There is a regular rate and rhythm without any murmurs gallops or rubs. ABDOMEN: Soft and nontender with normal bowel sounds. No palpable organomegaly was noted. There is no palpable pulsatile mass. SKIN: Skin is clear with no lesions or rashes and otherwise unremarkable. NEUROLOGIC: Patient is alert and oriented x3. Cranial nerves II through XII are grossly intact. Motor and sensory are also intact. Normal speech, volume and content. Symmetrical smile. Cerebellar exam grossly intact. MUSCULOSKELETAL: Normal extremities with adequate strength and full range of motion. No lower extremity swelling or edema. No calf tenderness. LYMPHATICS: No significant lymphadenopathy is noted PSYCHIATRIC: Normal psychiatric evaluation. Normal interpersonal interactions appears functionally intact in deals appropriately with others. No signs of depression. No signs of anxiety. Limitations: no limitations Course Vital Signs 11/11/16 11/11/16 19:28 19:40 Temperature 99.1 F 98.5 F Pulse Rate 75 73 Respiratory 18 16 Rate Blood Pressure 143/82 138/82 O2 Sat by Pulse 97 97 Oximetry Medical Decision Making - Medical Decision Making EKG shows normal sinus rhythm at 71 bpm HI interval 190 QRS is 114 QT interval 396 QTC is 4:30. Patient's EKG shows no ST segment elevation or depression or T -wave abdomen is noted. Chest x-ray is normal. I started the patient on heparin because I believe the patient was having unstable angina because of his clinical picture as well as his past medical history. I spoke with Dr. Vidal agreed to admit the patient admitted the patient I consult cardiology and continue to have a nitro patient aspirin on the floor. - Lab Data Result diagrams: 11/11/16 19:47 11/11/16 19:47 Lab Results 11/11/16 11/11/16 11/11/16 Range/Units 19:47 19:47 19:47 WBC 6.9 (3.8-10.6) k/uL RBC 4.60 (4.30-5.90) m/uL Hgb 13.7 (13.0-17.5) gm/dL Hct 40.2 (39.0-53.0) % MCV 87.4 (80.0-100.0) fL MCH 29.7 (25.0-35.0) pg MCHC 34.0 (31.0-37.0) g/dL RDW 13.1 (11.5-15.5) % Plt Count 246 (150-450) k/uL Neutrophils % 65 % Lymphocytes % 26 % Monocytes % 5 % Eosinophils % 3 % Basophils % 0 % Neutrophils # 4.5 (1.3-7.7) k/uL Lymphocytes # 1.8 (1.0-4.8) k/uL Monocytes # 0.3 (0-1.0) k/uL Eosinophils # 0.2 (0-0.7) k/uL Basophils # 0.0 (0-0.2) k/uL PT 10.1 (9.0-12.0) sec INR 1.0 (<1.1) APTT 24.0 (22.0-30.0) sec Sodium 142 (137-145) mmol/L Potassium 4.0 (3.5-5.1) mmol/L Chloride 106 (98-107) mmol/L Carbon Dioxide 24 (22-30) mmol/L Anion Gap 12 mmol/L BUN 17 (9-20) mg/dL Creatinine 1.02 (0.66-1.25) mg/dL Est GFR (MDRD) Af Amer >60 (>60 ml/min/1.73 sqM) Est GFR (MDRD) Non-Af >60 (>60 ml/min/1.73 sqM) Glucose 128 H (74-99) mg/dL Calcium 9.4 (8.4-10.2) mg/dL Magnesium 2.0 (1.6-2.3) mg/dL Total Bilirubin 0.5 (0.2-1.3) mg/dL AST 54 (17-59) U/L ALT 74 H (21-72) U/L Alkaline Phosphatase 77 (38-126) U/L Total Protein 7.6 (6.3-8.2) g/dL Albumin 4.6 (3.5-5.0) g/dL Critical Care Time Critical Care Time: Yes Total Critical Care Time: 35 Disposition Clinical Impression: Unstable angina pectoris Disposition: ADMITTED IP TO THIS HOSP Referrals: Mitchell Wharton MD [Primary Care Provider] - 1-2 days Time of Disposition: 20:47
[2016-11-11 20:14] LABS: Basophils % (A) 0 %; CHCM 34.5; Eosinophils # (A) 0.2 k/uL (0-0.7); Eosinophils % (A) 3 %; HCT 40.2 % (39.0-53.0); HGB 13.7 gm/dL (13.0-17.5); Luc # (Auto) 0.13; Luc % (Auto) 2; Lymphocytes # (A) 1.8 k/uL (1.0-4.8); Lymphocytes % (A) 26 %; MCH 29.7 pg (25.0-35.0); MCV 87.4 fL (80.0-100.0); Monocytes # (A) 0.3 k/uL (0-1.0); Monocytes % (A) 5 %; Neutrophils # (A) 4.5 k/uL (1.3-7.7); Neutrophils % (A) 65 %; RDW 13.1 % (11.5-15.5); WBC 6.9 k/uL (3.8-10.6); WBC (Perox) 6.75
--- NOTE | 2016-11-11 20:16 | XR ---
EXAMINATION TYPE: XR chest 2V DATE OF EXAM: 11/11/2016 COMPARISON: 09/17/2016 HISTORY: Chest pressure TECHNIQUE: Frontal and lateral views of the chest are obtained. FINDINGS: Heart and mediastinum are normal. Lungs are clear. Diaphragm is normal. Bony thorax appear s normal. There are chest leads. IMPRESSION: Normal chest. No change.
[2016-11-11 20:22] LABS: ALT 74 U/L (21-72); AST 54 U/L (17-59); Alkaline Phosphatase 77 U/L (38-126); Anion Gap 12 mmol/L; Blood Urea Nitrogen 17 mg/dL (9-20); Calcium 9.4 mg/dL (8.4-10.2); Carbon Dioxide 24 mmol/L (22-30); Chloride 106 mmol/L (98-107); Glucose 128 mg/dL (74-99); Non-African American GFR(MDRD) >60 (>60 ml/min/1.73 sqM); Sodium 142 mmol/L (137-145); Total Bilirubin 0.5 mg/dL (0.2-1.3); Total Protein 7.6 g/dL (6.3-8.2)
[2016-11-11 20:29] LABS: Prothrombin Time 10.1 sec (9.0-12.0)
[2016-11-11 20:43] LABS: Creatine Kinase 377 U/L (55-170)
[2016-11-11] MEDS ORDERED: HEPARIN SODIUM,PORCINE 5,000 UNIT/ML 1 ML VIAL IV ONE (20:46)
[2016-11-11] MEDS ORDERED: NITROGLYCERIN SL TABS 0.4 MG TAB SUBLINGUAL PRN (20:47)
[2016-11-11 20:56] LABS: Creatine Kinase MB 1.2 ng/mL (0.0-2.4); Troponin I <0.012 ng/mL (0.000-0.034)
[2016-11-11] MEDS ORDERED: HEPARIN SODIUM,PORCINE/D5W PMX 25,000 UNIT in DEXTROSE/WATER 1 500ML.BAG IV SCH (21:00)
[2016-11-11 22:16] VITALS: BMI 33.5
[2016-11-11] MEDS: NITROGLYCERIN OINT 1 INCH/GM PACKET TOPICAL SCH (23:56)
[2016-11-12 01:57] LABS: Creatine Kinase 302 U/L (55-170)
[2016-11-12 02:10] LABS: Creatine Kinase MB 0.9 ng/mL (0.0-2.4); Troponin I <0.012 ng/mL (0.000-0.034)
[2016-11-12 04:22] LABS: Cholesterol 193 mg/dL (<200); HDL Cholesterol 45 mg/dL (40-60); Triglycerides 232 mg/dL (<150)
[2016-11-12] MEDS: NITROGLYCERIN OINT 1 INCH/GM PACKET TOPICAL SCH (05:47)
[2016-11-12] MEDS ORDERED: ATORVASTATIN 80 MG TAB PO STA (07:42)
[2016-11-12] MEDS ORDERED: ALPRAZolam 0.25 MG TAB PO PRN (07:42)
[2016-11-12] MEDS ORDERED: ALPRAZolam 0.5 MG TAB PO PRN (07:42)
[2016-11-12] MEDS ORDERED: ASPIRIN 325 MG TAB PO STA (07:42)
[2016-11-12] MEDS ORDERED: NITROGLYCERIN SL TABS 0.4 MG TAB SUBLINGUAL PRN (07:42)
[2016-11-12] MEDS ORDERED: SODIUM CHLORIDE 0.9% 1,000 ML in EMPTY BAG 1 BAG IV ONE (07:42)
[2016-11-12] MEDS ORDERED: fentaNYL (PF) 50 MCG/ML 2 ML AMP ONE (08:17)
[2016-11-12] MEDS ORDERED: MIDAZOLAM 2 MG/2 ML VIAL ONE (08:18)
[2016-11-12] MEDS ORDERED: CLOPIDOGREL 75 MG TAB ONE (08:34)
[2016-11-12] MEDS ORDERED: CLOPIDOGREL 75 MG TAB PO ONE (08:37)
[2016-11-12] MEDS ORDERED: IV FLUID CONTINUATION 1,000 ML IV ONE (08:37)
[2016-11-12] MEDS ORDERED: fentaNYL (PF) 50 MCG/ML 2 ML AMP IV ONE (08:45)
[2016-11-12] MEDS ORDERED: MIDAZOLAM 2 MG/2 ML VIAL IV ONE (08:46)
[2016-11-12] MEDS ORDERED: LIDOCAINE 2% INJ 20 MG/ML SQ ONE (08:48)
[2016-11-12 08:59] LABS: Creatine Kinase 323 U/L (55-170)
[2016-11-12] MEDS ORDERED: CLOPIDOGREL 75 MG TAB PO SCH (09:00)
[2016-11-12] MEDS ORDERED: ASPIRIN 325 MG TAB PO SCH (09:00)
[2016-11-12] MEDS ORDERED: METOPROLOL TARTRATE 12.5 MG TAB PO SCH (09:00)
[2016-11-12] MEDS ORDERED: IOHEXOL 350 MG/ML 125ML BOTTLE INJ ONE (09:01)
[2016-11-12] MEDS ORDERED: RX INFO: IV CONTRAST WAS GIVEN 1 EACH MISC MISCELLANE PRN (09:10)
[2016-11-12 09:13] LABS: Creatine Kinase MB 0.9 ng/mL (0.0-2.4); Troponin I <0.012 ng/mL (0.000-0.034)
[2016-11-12] MEDS ORDERED: SODIUM CHLORIDE 0.9% 1,000 ML IV SCH (09:15)
[2016-11-12] MEDS ORDERED: ISOSORBIDE MONONITRATE ER 30 MG TAB.ER.24H PO SCH (09:15)
--- NOTE | 2016-11-12 09:22 | P.PCN ---
Date of Procedure: 11/12/16 Preoperative Diagnosis: Unstable angina Postoperative Diagnosis: Stable coronary artery disease Procedure(s) Performed: Implants: Indications for Procedure: Operative Findings: Description of Procedure: HISTORY: This is a 50-year-old gentleman with history of ischemic heart disease who had stent placement of the distal RCA and also proximal LAD about 6 weeks ago. Patient was admitted to the hospital with prolonged chest pain suggestive of unstable angina and patient is advised to have cardiac catheterization by Dr. Vines. CONSENT:I have discussed the risks, benefits and alternative therapies for the above-mentioned procedure and for both sedation/analgesia as well as necessary blood product administration, if indicated, as they pertain to this patient. The patient has indicated understanding and acceptance of the risks and procedures discussed. PROCEDURE: Patient was brought to the lab in a fasting state. Patient was given some IV sedation. The right groin is infiltrated with lidocaine and right femoral artery was entered using Seldinger technique. A 6-Armenian catheter was left in place and selective coronary arteriography was performed. Patient tolerated the procedure well. Femoral angiogram was performed and Angio-Seal was applied for hemostasis. No immediate complications were noted and patient was transferred to [facility] in a stable condition HEMODYNAMICS: The aortic pressure is 120/70. Left ankle end-diastolic pressure is 16-20. There was no gradient across the aortic valve SELECTIVE CORONARY ARTERIOGRAPHY: LEFT MAIN: Normal length and patent THE LEFT ANTERIOR DESCENDING CORONARY ARTERY: This is a good caliber vessel giving rise to good-sized first diagonal branch. The stent in the LAD is patent. The ostium of the diagonal branch was pinched after the procedure and seemed to be stable at this time. The lesion in the mid LAD appears to be stable and and noncritical. THE LEFT CIRCUMFLEX AND IS CORONARY ARTERY: This is a good caliber vessel giving rise to moderate caliber OM branch. OM branch has intermittent disease in the proximal and midportion. The lesions appears to be stable compared to the previous study. THE RIGHT CORONARY ARTERY: This is a good caliber vessel and the stent in the distal branch of the RCA appears to be patent. There appears to be a small caliber PDA branch which is a tight 90% ostial stenosis. This also has been stable. LEFT VENTRICULOGRAPHY: Not performed FINAL IMPRESSION: Stable coronary artery disease with patent stents in the LAD and the distal RCA. There is pinching of the first diagonal branch that is stable. This intermittent disease in the OM branch of the circumflex. PLAN: Continue maximal medical therapy. If patient continues to have symptoms may consider doing a nuclear stress test to see this any ischemia in the LAD or circumflex distribution. PROGNOSIS: Fair
--- NOTE | 2016-11-12 11:27 | CONS ---
DATE OF CONSULTATION: Mr. Khalil is a 51-year-old male with a history of coronary artery disease, who presented with symptoms of chest discomfort. He was admitted to the hospital in mid August with symptoms of chest discomfort and at that time had a stress test that showed evidence of inducible ischemia, subsequently underwent a cardiac catheterization and was found to have significant obstructive disease involving the PLV and the PDA with moderate disease in the LAD. He underwent a FFR measurement of the LAD was significant and stenting of the right coronary artery by Dr. Bunny Patel and he had stenting of the LAD proximally. Yesterday while at the move, he had an episode of severe chest discomfort across the chest with dyspnea. He took an aspirin with some improvement in his symptoms. He feels that those symptoms remind him somewhat of what he had at the time of his event. He denies any dizziness, palpitation. No syncope. No PND, orthopnea, or significant peripheral edema. His coronary risk factors are negative for smoking. He is a nondiabetic. His lipid profile is not available to me. His medications include aspirin, Plavix 75 mg daily, metoprolol tartrate 12.5 mg daily, in addition to vitamins. REVIEW OF SYSTEMS: RESPIRATORY SYSTEM: He has no recent wheezing. No cough. No history of documented obstructive lung disease. GI SYSTEM: No recent GI bleeding. No peptic ulcer disease. SYSTEM: No dysuria or hematuria. NERVOUS SYSTEM: No stroke or seizure. PHYSICAL EXAMINATION: He is a 51-year-old male, alert, oriented, in no apparent distress. Blood pressure 106/60 with a heart rate in the 60s. HEAD: Normocephalic. EYES: Sclerae nonicteric. NECK: Good upstroke. No bruit. No jugular venous distention. LUNGS: Clear to auscultation. HEART: Regular rate and rhythm. S1, S2, no S3, no rub. ABDOMEN: Soft, nontender, positive bowel sounds. No organomegaly. EXTREMITIES: No edema. Intact distal pulses. LAB DATA: EKG sinus mechanism, rate of 69, normal axis and intervals with no acute changes. Troponin less than 0.012 for 2 samples. Cholesterol 193, LDL of 102. BUN and creatinine 17 and 1.02. Hemoglobin of 13.7. IMPRESSION: 1. Chest discomfort in a patient with known history of coronary artery disease. Rule out angina pectoris. 2. Status post stenting of the LAD and the right coronary artery. 3. Mild hyperlipidemia. RECOMMENDATION: I will start him back on statin as well as on his Plavix. I recommend proceeding with coronary angiography to be performed by Dr. Gaytan to evaluate the status and guide his treatment. The rationale behind the procedure as well as risks and complications were discussed with the patient who is in full understanding and agreement. Thank you for this consult. Will follow with you.
[2016-11-12 12:12] VITALS: RESP 16
[2016-11-12 16:18] VITALS: BP 108/57; PULSE 61; TEMP 97.6
--- NOTE | 2016-11-12 16:34 | HP ---
DATE OF ADMISSION: 11/11/2016 This dictation is both H&P and discharge summary. Patient is a very pleasant 51-year-old gentleman came in with history of coronary disease and recent stent placement. I do not have any echocardiogram available for the ejection fraction, left ventriculogram was not done and patient has been working out. Patient started having chest pain across the chest which lasted for about 45 minutes associated with some shortness of breath as well as diaphoresis, because of which patient was concerned and came to the hospital. Patient underwent cardiac catheterization, which did not show any significant coronary occlusion. Patient will be discharged today. Patient chest pain is nonpleuritic, not associated with food, appears to be mostly musculoskeletal. Denied any orthopnea, PND. REVIEW OF SYSTEMS: CONSTITUTIONAL: No fever, no malaise, no fatigue. HEENT: No recent visual problems or hearing problems. Denied any sore throat. CARDIOVASCULAR: No chest pain, orthopnea, PND, no palpitations, no syncope. PULMONARY: No shortness of breath, no cough, no hemoptysis. GASTROINTESTINAL: No diarrhea, no nausea, no vomiting, no abdominal pain. Normoactive bowel sounds. NEUROLOGICAL: No headaches, no weakness, no numbness. HEMATOLOGICAL: Denies any bleeding or petechiae. GENITOURINARY: Denies any burning micturition, frequency, or urgency. MUSCULOSKELETAL/RHEUMATOLOGICAL: Denies any joint pain, swelling, or any muscle pain. ENDOCRINE: Denies any polyuria or polydipsia. The rest of the 14 point review of systems is negative. PAST MEDICAL HISTORY: Significant for coronary artery disease, hyperlipidemia. Home medications include: 1. Multivitamin. 2. Metoprolol. 3. Ferrous sulfate. 4. Plavix. 5. Clobetasol. 6. Aspirin. 7. Isosorbide mononitrate. Patient had appendectomy, cardiac catheterization and stent placement in the past. SOCIAL HISTORY: Denied any smoking, alcohol abuse or any drug abuse. FAMILY HISTORY: Congestive heart failure and diabetes mellitus and myocardial infarction in the family and CABG history in the family. PHYSICAL EXAMINATION: VITAL SIGNS: Temperature 97.5, pulse of 63, respiratory rate of 16, blood pressure 133/70. Saturating at 97% on room air. GENERAL: The patient is alert and oriented x3, not in any acute distress. Well developed, well nourished. HEENT: Pupils are round and equally reacting to light. EOMI. No scleral icterus. No conjunctival pallor. Normocephalic, atraumatic. No pharyngeal erythema. No thyromegaly. CARDIOVASCULAR: S1 and S2 present. No murmurs, rubs, or gallops. PULMONARY: Chest is clear to auscultation, no wheezing or crackles. ABDOMEN: Soft, nontender, nondistended, normoactive bowel sounds. No palpable organomegaly. MUSCULOSKELETAL: No joint swelling or deformity. EXTREMITIES: No cyanosis, clubbing, or pedal edema. NEUROLOGICAL: Gross neurological examination did not reveal any focal deficits. SKIN: No rashes. LABORATORY DATA: CBC, CMP: No significant abnormality except for mildly elevated CK which is nonsignificant elevation, probably from his skeletal muscle. ASSESSMENT AND PLAN: 1. Chest discomfort. Musculoskeletal in nature. Ruled out acute coronary artery syndrome. Patient underwent cardiac catheterization without any significant coronary occlusion. 2. Hyperlipidemia. 3. Musculoskeletal chest pain, mildly elevated CPK, probably coming from skeletal muscles not high enough to cause any rhabdomyolysis. Patient will be discharged today with cardiac diet. Activity as tolerated. Follow with Dr. iMtchell Wharton in 3 to 7 days. Follow up with Dr. Andre Gaytan as scheduled.
[2016-11-13] MEDS ORDERED: ATORVASTATIN 40 MG TAB PO SCH (09:00)
== END 2016-11-12 16:45 | disposition home or self-care (01) ==
LOC: EC 19:20 → 3OBS 20:47
PROVIDERS: ADMIT Internal Medicine; ATTEND Internal Medicine
DX: R07.89 Other chest pain (principal); R74.8 Abnormal levels of other serum enzymes; R61 Generalized hyperhidrosis; R06.02 Shortness of breath; E78.5 Hyperlipidemia, unspecified; I25.10 Atherosclerotic heart disease of native coronary artery without angina pectoris; Z95.5 Presence of coronary angioplasty implant and graft; Z79.82 Long term (current) use of aspirin; Z79.899 Other long term (current) drug therapy; Z88.5 Allergy status to narcotic agent; Z83.3 Family history of diabetes mellitus; Z82.49 Family history of ischemic heart disease and other diseases of the circulatory system; Z80.3 Family history of malignant neoplasm of breast
CPT/HCPCS: 99291; 96376 ×2; 96365 ×2; 96366 ×2; 36415; 93005; 93458; 80061; 80053; 82550 ×2; 82553 ×2; 83735; 84484 ×2; 85025; 85610; 85730 ×2; 71020; G0378 ×2; C1760; C1894; C1769; J2001; J2250; J1644 ×2; J3010; Q9967

== ENCOUNTER 2017-06-03 15:42 | Emergency (ER) | payer OTHER ==
--- NOTE | 2017-06-03 16:33 | XR ---
EXAMINATION TYPE: XR elbow complete RT DATE OF EXAM: 06/03/2017 COMPARISON: NONE HISTORY: Pain and swelling TECHNIQUE: Three-view right elbow FINDINGS: No acute fractures are evident. Radius aligns normally with the humerus. Anterior fat pad i s normal. No elevation of posterior fat pad is evident. There is soft tissue swelling over the olecranon. This could be posttraumatic. Bursitis could be cons idered. Follow-up study can be performed 7-10 days from acute trauma for continued pain. IMPRESSION: 1. Superficial soft tissue swelling over the olecranon. 2. No acute osseous abnormality.
--- NOTE | 2017-06-03 16:37 | ED ---
Upper Extremity HPI - General Chief Complaint: Extremity Injury, Upper Stated Complaint: IHS/Elbow Pain Time Seen by Provider: 06/03/17 16:18 Source: patient, RN notes reviewed Mode of arrival: EMS Limitations: no limitations - History of Present Illness Initial Comments: This is a 51-year-old male who presents to the emergency department with chief complaint of right elbow injury. 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 He had to enter the roof through a second story window. He exited the window and when he turned back to grab his tools the emergency had closed and he rammed his right elbow into it. Patient did not notice any swelling or pain at that time. Approximately 45 minutes later, after he had finished the job, he noticed that his right elbow is extremely swollen. He presented to [facility] who instructed him to come to the emergency department. Patient does not complain of any pain, he states that his elbow feels "tight." Denies any other injury. Denies fever, chills, chest pain, shortness of breath, abdominal pain, nausea or vomiting, constipation or diarrhea, dysuria or hematuria, numbness or tingling, headache or vision changes. - Related Data Home Medications Medication Instructions Recorded Confirmed Aspirin 81 mg PO DAILY 10/22/15 11/11/16 Ferrous Sulfate [Iron (65 MG 325 mg PO DAILY 09/17/16 11/11/16 Elemental)] Multivitamins, Thera [Multivitamin 1 tab PO DAILY 09/17/16 11/11/16 (formulary)] Clobetasol Propionate [Temovate] 1 applic TOPICAL DAILY PRN 11/11/16 11/11/16 Previous Rx's Medication Instructions Recorded Clopidogrel [Plavix] 75 mg PO DAILY #90 tab 09/20/16 Metoprolol Tartrate [Lopressor] 12.5 mg PO DAILY #90 tab 09/20/16 Isosorbide Mononitrate ER [Imdur] 30 mg PO DAILY #30 tab 11/12/16 Allergies Allergy/AdvReac Type Severity Reaction Status Date / Time oxycodone HCl [From Percocet] AdvReac VOMITING, Verified 06/03/17 16:03 HOT FLASHES, ROOM SPINNING Review of Systems ROS Statement: Those systems with pertinent positive or pertinent negative responses have been documented in the HPI. ROS Other: All systems not noted in ROS Statement are negative. Past Medical History Past Medical History: Chest Pain / Angina Additional Past Medical History / Comment(s): slightly high cholestrol watching diet and taking fish oil, kidney stones in the past History of Any Multi-Drug Resistant Organisms: None Reported Past Surgical History: Appendectomy, Heart Catheterization With Stent Additional Past Surgical History / Comment(s): colonoscopy negative Past Anesthesia/Blood Transfusion Reactions: No Reported Reaction Additional Past Anesthesia/Blood Transfusion Reaction / Comment(s): no hx of surgeries Date of Last Stent Placement:: 08/2016 Past Psychological History: No Psychological Hx Reported Smoking Status: Never smoker Past Alcohol Use History: None Reported Past Drug Use History: None Reported - Past Family History Father Family Medical History: Congestive Heart Failure (CHF), Diabetes Mellitus, Myocardial Infarction ([place]) Additional Family Medical History / Comment(s): CABG, coronary ablation, coronary stentskidney and liver failure - passed at 72 Mother Family Medical History: Cancer Additional Family Medical History / Comment(s): breast cancer General Exam - General Exam Comments Initial Comments: General: Awake and alert, well-developed; in no apparent distress. HEENT: Head atraumatic, normocephalic. Pupils are equal, round and reactive to light. Extraocular movements intact. Neck: Supple. Normal ROM. Cardiovascular: Regular rate and rhythm. No murmurs, rubs or gallops. Chest symmetrical. Respiratory: Lungs clear to auscultation bilaterally. No wheezes, rales or rhonchi. Normal respiratory effort with no use of accessory muscles. Musculoskeletal: Normal active and passive range of motion of right elbow. There is a large effusion noted over the posterior elbow. Sensation is intact. Radial pulses are 2+ equal and palpable bilaterally. No tenderness on palpation of elbow. Skin: [place], warm and dry without rashes or lesions. Neurological: Alert and oriented x3. CN II-XII grossly intact. Speech is fluent and answers are appropriate. No focal neuro deficits. Psychiatric: Normal mood and affect. No overt signs of depression or anxiety noted. Limitations: no limitations Course Vital Signs 06/03/17 16:00 Temperature 98.6 F Pulse Rate 71 Respiratory 18 Rate Blood Pressure 145/81 O2 Sat by Pulse 97 Oximetry Medical Decision Making - Medical Decision Making This is a 51-year-old male who presents to emergency department for evaluation of a right elbow injury sustained at work this afternoon. Patient has full range of motion of the right elbow and does not complain of any pain. He is neurovascularly intact. X-ray revealed no evidence of acute fracture or dislocation. Patient does have moderate amount of swelling over the olecranon. Patient states he has an appointment set up with S doctor tomorrow at 2:30. Recommended ice, Tylenol or ibuprofen for pain and inflammation and to wrap the elbow with an Ernesto bandage or neoprene sleeve. Patient will be discharged home. He is in agreement and voices understanding. All questions were answered. - Radiology Data Radiology results: report reviewed X-ray right elbow impression: 1. Superficial soft tissue swelling over the olecranon. 2. No acute osseous abnormality. Disposition Clinical Impression: Swelling of right elbow Disposition: HOME SELF-CARE Condition: Good Instructions: Swollen Joint (ED) Additional Instructions: Please follow up with doctor as scheduled tomorrow. Please apply ice to the injury. Please take Tylenol or Motrin as needed for pain and inflammation. Please use an Ernesto bandage or neoprene sleeve. Please follow up with primary care provider within 1-2 days. Return to emergency department if symptoms should worsen or any concerns arise. Referrals: Mitchell Wharton MD [Primary Care Provider] - 1-2 days Time of Disposition: 16:48
[2017-06-03 23:32] VITALS: BP 145/81; PULSE 71; RESP 18; TEMP 98.6
== END 2017-06-03 17:08 | disposition home or self-care (01) ==
LOC: EC 15:42
DX: M79.89 Other specified soft tissue disorders (principal); Z79.82 Long term (current) use of aspirin; Z79.899 Other long term (current) drug therapy; Z88.5 Allergy status to narcotic agent; W22.09XA Striking against other stationary object, initial encounter; Y92.69 Other specified industrial and construction area as the place of occurrence of the external cause; Y99.0 Civilian activity done for income or pay
CPT/HCPCS: 99283

== ENCOUNTER → 2017-06-15 | Outpatient (CLI) | payer OTHER ==
--- NOTE | 2017-06-15 09:52 | XR ---
EXAMINATION TYPE: XR elbow complete RT DATE OF EXAM: 06/15/2017 COMPARISON: 06/03/2017 HISTORY: 51 year-old male right elbow contusion and pain, injury one and half weeks ago. TECHNIQUE: 3 views FINDINGS: Persisting but decreasing soft tissue swelling overlying the olecranon process. No significant underl lucio elbow joint effusion. Bony irregularity overlying the lateral epicondyle. No acute fracture or d islocation. IMPRESSION: 1. Persistent but decreasing olecranon soft tissue swelling. This could represent soft tissue contusi on or olecranon bursitis. 2. Bony changes suggesting common extensor tendinosis. 3. No acute osseous abnormality seen.
== END | disposition home or self-care (01) ==
LOC: RADXRMAIN 09:16
PROVIDERS: ATTEND Emergency Medicine
DX: M79.89 Other specified soft tissue disorders (principal)

== ENCOUNTER → 2018-03-02 | Outpatient (CLI) | payer OTHER ==
--- NOTE | 2018-03-02 20:08 | CONS ---
CONSULTATION REASON FOR CONSULTATION: Obstructive sleep apnea. This is a 52-year-old male patient who was diagnosed having obstructive sleep apnea more than 10 years ago. Original study was done in [facility] and the patient had subsequent followups at [facility]. Note that he wanted to come back and establish himself here at our sleep center, and he came in for further advice. I checked his CPAP machine. The patient has a CPAP unit which is a ResMed Air Sense AutoSet unit at a pressure of 10 cm of water. He is also utilizing AirFit P10 nose pillows. Denies gaining any weight. His treatment has been extremely successful and the patient is wearing his CPAP every night. He is waking up refreshed and alert during the day. Based on the compliance data was collected over the past 4 months on the machine, he is using his CPAP machine every night and his average CPAP use is around 8.1 hours per night. His leak factor 38 L/minutes. His AHI is down to 1.4 while on treatment. He goes to bed around 10 p.m., wakes up at 6 a.m. in the morning. He is averaging about 6-7 hours of sleep at least. No snoring while on the CPAP machine. His [place] score is 6. 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 He has no restlessness in his lower extremities. PAST MEDICAL HISTORY: 1. Obstructive sleep apnea. 2. Coronary artery disease with previous coronary intervention and stenting. PAST SURGICAL HISTORY: 1. Cardiac catheterization and stenting. 2. Appendectomy. DRUG ALLERGIES: PERCOCET. OUTPATIENT MEDICATION LIST: 1. Plavix 75 a day. 2. Aspirin 81 mg p.o. daily. 3. Iron tablet 65 grams daily. 4. Multivitamin. 5. Lopressor 12.5 mg p.o. twice a day. 6. Imdur 30 mg p.o. daily. SOCIAL HISTORY: The patient is a nonsmoker. No history of alcoholism. No history of IV drugs. FAMILY HISTORY: Positive for sleep apnea. REVIEW OF SYSTEMS: Twelve-point review of systems was done. No history of snoring while on CPAP therapy. No insomnia. Denies having a need to wake up choking or gasping for air while on CPAP therapy. No nocturia. No grinding of the teeth. No dry mouth. No anxiety or panic attacks. No palpitation. No heartburn. No sweating. No anxiety. No claustrophobia. No sexual dysfunction. No irritability. No problems with memory and concentration. No history of falls. No history of any sleeps or sleep attacks. PHYSICAL EXAMINATION: BP is 131/81, pulse 76, respirations 16, temperature 98.4, saturation 95% on room air. Weight is 246. Height is 5 feet 10 inches. [place] score is 6. Neck size is 18-3/4 inches. BMI is 34.7. GENERAL APPEARANCE: Calm, comfortable. Head is atraumatic, normocephalic. NECK: Supple. Mallampati class IV. There is no goiter or neck masses. LUNGS: Clear to auscultation. Heart sounds are regular rate and rhythm. Normal S1, S2. No S3, S4. No murmurs. ABDOMEN: Soft, nontender. No organomegaly. EXTREMITIES: No edema. No cyanosis or clubbing. IMPRESSION: 1. Obstructive sleep apnea, currently on CPAP. The patient is currently on a CPAP pressure of 10 cm of water. Treatment has been effective, and the patient has no sleep quality issues. The patient is awake and refreshed and alert during the day. [place] score is 6. 2. Coronary artery disease. 3. Obesity with a body mass index of 34.7. PLAN: 1. Continue CPAP therapy at the same level of pressure. 2. I offered him an alternative mask which is a Brevida nose mask instead of the AirFit P10. A prescription was sent to [facility] in addition to refilling the rest of his supplies. 3. Encourage weight loss. 4. Implement good sleep hygiene measures. 5. No need to repeat the sleep study. The patient has been effectively treated for now. We will continue to follow and make further recommendations based on his progress. MMODL / IJN: [id number] /
== END ==
LOC: SLEEP 15:12
PROVIDERS: ATTEND Internal Medicine Critical Care Medicine
DX: G47.33 Obstructive sleep apnea (adult) (pediatric) (principal); I25.10 Atherosclerotic heart disease of native coronary artery without angina pectoris; E66.9 Obesity, unspecified; Z68.34 Body mass index [BMI] 34.0-34.9, adult; Z99.89 Dependence on other enabling machines and devices; Z79.899 Other long term (current) drug therapy; Z79.82 Long term (current) use of aspirin; Z79.02 Long term (current) use of antithrombotics/antiplatelets; Z88.5 Allergy status to narcotic agent
CPT/HCPCS: 99211

== ENCOUNTER → 2018-06-24 | Outpatient (CLI) | payer OTHER ==
[2018-06-24 14:39] LABS: HCT 41.2 % (39.0-53.0); MCV 88.3 fL (80.0-100.0); Mean Platelet Volume 7.2; Platelet Count 249 k/uL (150-450); RBC 4.67 m/uL (4.30-5.90); RDW 13.2 % (11.5-15.5); WBC 6.6 k/uL (3.8-10.6)
== END | disposition home or self-care (01) ==
LOC: LABPAT 13:56
PROVIDERS: ATTEND Internal Medicine Cardiovascular Disease
DX: Z01.812 Encounter for preprocedural laboratory examination (principal); I25.10 Atherosclerotic heart disease of native coronary artery without angina pectoris
CPT/HCPCS: 80051; 82565; 84520; 85027

== ENCOUNTER 2018-06-25 08:26 | Day surgery (SDC) | payer OTHER ==
[2018-06-24 14:27] VITALS: BMI 35.1
[~2018-06-25 08:26] MED LIST: ALPRAZolam 0.25 MG TAB PO PRN; ASPIRIN 325 MG TAB PO ONE; NITROGLYCERIN SL TABS 0.4 MG TAB SUBLINGUAL PRN; SODIUM CHLORIDE 0.9% 1,000 ML in EMPTY BAG 1 BAG IV ONE
[2018-06-25] MEDS ORDERED: SODIUM CHLORIDE 0.9% 1,000 ML IV ONE (08:56)
[2018-06-25] MEDS ORDERED: LIDOCAINE 1% INJ 10MG/ML (20 ML MDV) ONE (09:12)
[2018-06-25] MEDS ORDERED: fentaNYL (PF) 50 MCG/ML 2 ML AMP ONE (09:12)
[2018-06-25] MEDS ORDERED: fentaNYL (PF) 50 MCG/ML 2 ML AMP IV ONE (09:26)
[2018-06-25] MEDS ORDERED: MIDAZOLAM 2 MG/2 ML VIAL IV ONE (09:26)
[2018-06-25] MEDS ORDERED: LIDOCAINE 1% INJ 10MG/ML (20 ML MDV) SQ ONE (09:30)
[2018-06-25] MEDS ORDERED: HEPARIN SODIUM 1,000 UN/ML (10ML VL) ONE (09:31)
[2018-06-25] MEDS: VERAPAMIL SYRINGE (5 MG/10 ML) INTRAARTER ONE ×2 (09:33→11:32)
[2018-06-25] MEDS ORDERED: HEPARIN SODIUM 1,000 UN/ML (10ML VL) IV ONE (09:33)
[2018-06-25] MEDS ORDERED: IOPAMIDOL-370 125ML BTL INJ ONE ×2 (09:46→11:24)
[2018-06-25] MEDS: MIDAZOLAM 2 MG/2 ML VIAL IV ONE ×2 (10:45→11:08)
[2018-06-25] MEDS ORDERED: BIVALIRUDIN BOLUS 250 MG/50 ML IV ONE (10:55)
[2018-06-25] MEDS ORDERED: BIVALIRUDIN 250 MG in SODIUM CHLORIDE 0.9% 50 ML IV ONE ×2 (10:58→11:36)
[2018-06-25] MEDS ORDERED: CLOPIDOGREL 75 MG TAB ONE (11:12)
[2018-06-25] MEDS ORDERED: CLOPIDOGREL 75 MG TAB PO ONE (11:16)
[2018-06-25] MEDS: NITROGLYCERIN 1000MCG/10ML SYRINGE INTRACORON ONE ×2 (11:21→11:32)
[2018-06-25] MEDS ORDERED: IOPAMIDOL-370 100ML BTL INJ ONE (11:32)
[2018-06-25] MEDS ORDERED: CLOBETASOL PROP 0.05% CR 15GM TOPICAL PRN (11:43)
[2018-06-25] MEDS ORDERED: ZOLPIDEM 5 MG TAB PO PRN (11:44)
[2018-06-25] MEDS ORDERED: ATROPINE SULFATE 0.1 MG/ML 10ML SYRINGE IV PRN (11:44)
[2018-06-25] MEDS ORDERED: MAG HYDROX/AL HYDROX/SIMETH 30 ML CUP PO PRN (11:44)
[2018-06-25] MEDS ORDERED: RX INFO: IV CONTRAST WAS GIVEN 1 EACH MISC MISCELLANE PRN (11:44)
[2018-06-25] MEDS ORDERED: NITROGLYCERIN SL TABS 0.4 MG TAB SUBLINGUAL PRN (11:44)
[2018-06-25] MEDS ORDERED: SODIUM CHLORIDE 0.9% 1,000 ML IV SCH (11:45)
--- NOTE | 2018-06-25 12:16 | PTCA ---
PERCUTANEOUSTRANS CORORONARY ANGIOGRAPHY DATE OF SERVICE: June 25, 2018 PERFORMING PHYSICIAN: Greg Calvo MD, sales representative door to door. PROCEDURE PERFORMED: 1. Successful stenting of the distal right coronary artery using 3.0 x 23 mm Vision bare metal stent with good angiographic results. 2. Successful stenting of the mid to distal right coronary artery using 3.5 x 18 mm Vision bare metal stent with good angiographic results. INDICATION: This is a pleasant 52-year-old gentleman who sees Dr. Gaytan as an outpatient who was going to have prostate surgery. He is known to have coronary artery disease and he underwent stenting of the PDA branch of the RCA in the past. The patient underwent myocardial perfusion imaging stress test and that revealed reversible defect in the RCA territory. Because of that, he was advised to undergo heart catheterization. The heart catheterization revealed severe disease involving the distal right coronary artery and severe disease involving the LAD by the bifurcation of the diagonal branch. APPROACH: Right radial artery. COMPLICATION: None. LEVEL OF SEDATION: Moderate with sedation length of 30 minutes. PROCEDURE DESCRIPTION: Please refer to diagnostic heart catheterization that was performed by Dr. Gaytan. After reviewing the angiogram, we decided to intervene on the RCA. Anticoagulation was initiated using Angiomax. Subsequently I did engage the right artery using JR4 guide. I did wire the RCA using a run-through wire. After that, I did predilatation using 2.5 x 15 x 20 mm balloon before I deployed in the RCA distally, 3.0 x 23 mm Vision bare metal stent where the stent was positioned under fluoroscopy guidance and deployed under 14 atmospheres. After that, I post dilated the stent using a 3.25 mm balloon. The following angiogram showed good angiographic results. For the lesion in the mid to distal RCA, I did direct stenting on it using a 3.5 x 18 mm Vision bare metal stent where the stent again was positioned under fluoroscopy guidance and deployed under 14 atmospheres for 20 seconds with the following angiogram showing good angiographic result. The procedure was completed without any complication. MMODL / IJN: [id number] /
[2018-06-26 07:15] LABS: Basophils % (A) 1 %; Eosinophils # (A) 0.3 k/uL (0-0.7); Eosinophils % (A) 4 %; HCT 42.3 % (39.0-53.0); HGB 13.8 gm/dL (13.0-17.5); Lymphocytes # (A) 1.3 k/uL (1.0-4.8); Lymphocytes % (A) 20 %; MCH 29.3 pg (25.0-35.0); MCHC 32.7 g/dL (31.0-37.0); MCV 89.6 fL (80.0-100.0); Mean Platelet Volume 7.1; Monocytes # (A) 0.3 k/uL (0-1.0); Monocytes % (A) 5 %; Neutrophils # (A) 4.5 k/uL (1.3-7.7); Neutrophils % (A) 69 %; Platelet Count 223 k/uL (150-450); RBC 4.72 m/uL (4.30-5.90); RDW 13.3 % (11.5-15.5); WBC 6.6 k/uL (3.8-10.6)
[2018-06-26 07:38] LABS: Anion Gap 6 mmol/L; Blood Urea Nitrogen 16 mg/dL (9-20); Calcium 9.1 mg/dL (8.4-10.2); Carbon Dioxide 26 mmol/L (22-30); Chloride 107 mmol/L (98-107); Glucose 114 mg/dL (74-99); Potassium 4.9 mmol/L (3.5-5.1); Sodium 139 mmol/L (137-145)
[2018-06-26] MEDS ORDERED: FERROUS SULFATE 325 MG TAB PO SCH (09:00)
[2018-06-26] MEDS ORDERED: ASPIRIN 81 MG PO SCH (09:00)
[2018-06-26] MEDS ORDERED: METOPROLOL TARTRATE 12.5 MG TAB PO SCH (09:00)
[2018-06-26] MEDS ORDERED: CLOPIDOGREL 75 MG TAB PO SCH (09:00)
[2018-06-26] MEDS ORDERED: ISOSORBIDE MONONITRATE ER 30 MG TAB.ER.24H PO SCH (09:00)
--- NOTE | 2018-06-26 11:54 | P.CARDCATH ---
Addendum entered and electronically signed by Andre Gaytan MD 06/26/18 10:59: The procedure was performed from the right radial approach. It was not done from right femoral. The right radial artery was entered using Seldinger technique and a 6-Khmer sheath was left in place. Selective coronary angiography was performed using Florencio catheters. Left ventriculography was not performed. Patient went on to have stent placement of the RCA by Dr. Ac Original Note: Date of Procedure: 06/25/18 Preoperative Diagnosis: ischemic heart disease with positive stress test Postoperative Diagnosis: multivessel disease with a new lesions in the distal RCA and also mid LAD Description of Procedure: HISTORY:This patienthe is a known case of multivessel coronary artery disease with stent placement of the LAD and also PDA branch of the RCA. Patient was recently evaluated by stress test as a preop evaluation for upcoming prostate surgery. Patient was found to have ischemia in the inferoseptal area. He is advised to have a cardiac catheterization for definitive diagnosis. CONSENT:I have discussed the risks, benefits and alternative therapies for the above-mentioned procedure and for both sedation/analgesia as well as necessary blood product administration, if indicated, as they pertain to this patient. The patient has indicated understanding and acceptance of the risks and procedures discussed. PROCEDURE: Patient was brought to the lab in a fasting state. Patient was given some IV sedation. The right groin is infiltrated with lidocaine and right femoral artery was entered using Seldinger technique. A 6-Khmer catheter was left in place and selective coronary arteriography and left ventriculography was performed. Patient tolerated the procedure well. Femoral angiogram was performed and Angio-Seal was applied for hemostasis. No immediate complications were noted and patient was transferred to [facility] in a stable condition Conscious Sedation: Versed 1mg Fentanyl 50 g Duration 16minutes HEMODYNAMICS: The aortic pressure is about 130/70. Left ventricular end- diastolic pressure is about a 12-16. There was no gradient across the aortic valve SELECTIVE CORONARY ARTERIOGRAPHY: LEFT MAIN: this is a good caliber vessel with mild distal disease with about 20-30% luminal narrowing, distally before the bifurcation to the LAD and circumflex system. THE LEFT ANTERIOR DESCENDING CORONARY ARTERY: this is a good caliber vessel giving rise good-sized first diagonal branch and moderate caliber second diagonal branchthe stents in the proximal LAD, a patent. The first diagonal has mild disease and proximally. At the origin of the present septal and diagonal branch, There appears to be moderate to severe disease in the LAD. There is also lesion involving theostium of the diagonal with a 70-80 % lesion. There is mild diffuse plaque in the distal LAD THE LEFT CIRCUMFLEX AND IS CORONARY ARTERY: This is anondominant vessel giving rise to moderate caliber first OM branch. The first OM branches has mild diffuse plaque. The circumflex is free of any significant occlusive disease THE RIGHT CORONARY ARTERY: This is a dominant vessel giving rise to good-sized PDA and PLV branches.The previous stent in the PDA is patent.There is a new lesion in the distal LAD which appears to be critical and moderate disease in the mid RCA LEFT VENTRICULOGRAPHY: Not performed FINAL IMPRESSION: significant lesion involving the distal RCA with a moderate disease in the mid RCA. There is also a critical lesion involving the ostium of the second diagonal with moderate to severe disease involving the LAD near the ostium of the diagonal branch PLAN: Bare-metal stenting of the distal and mid RCA.continue with maximal medical therapy. Patient will be cleared for surgery after 4 weeks of dual antiplatelet agents. His risk for surgery is more more than average because of diffuse nature of his coronary artery disease PROGNOSIS: []
--- NOTE | 2018-06-26 11:54 | P.DS ---
Providers Date of admission: 06/25/2018 Attending physician: Andre Gaytan Consults: 06/25/18 11:44 Consult Physician Routine Consulting Provider: [facility] Consult Reason/Comments: Post Interventional patient Do you want consulting provider notified?: Already Contacted Primary care physician: Mitchell Wharton - Discharge Diagnosis(es) (1) Positive cardiac stress test Current Visit: Yes Status: Acute (2) CAD (coronary artery disease) Current Visit: Yes Status: Acute (3) Prostate CA Current Visit: Yes Status: Acute Hospital Course: this 52-year-old gentleman with history of multivessel coronary artery disease with a history of previous stent placement of the RCA and also left anterior descending, was recently diagnosed to have prostate CA. Patient was evaluated by stress test as a preop procedure and was noted and new ischemic changes in the inferoseptal area. Patient had a cardiac catheterization and was found have significant disease involving the distal RCA with moderate to severe disease in the mid RCA. In addition, he also has a lesion in the PLV branch. The stent in the PDA is patent. Patient also has stents in the LAD which are patent but mid LAD developed a new blockage at the origin of the diagonal. The ostium of the diagonal also has about 90% stenosis. Patient underwent stenting of the mid and distal RCA by Dr. Acwith a bare-metal stent. The LAD was not intervened at this time because there was no ischemia on the stress test. Patient had a bare-metal stent. It is recommended that patient could undergo his prostate surgery after 4 weeks of dual antiplatelet agents. Patient is being discharged home today. He'll continue current medical therapy. Follow up in the office in about one week. His puncture site in the right atrium appears to be free of any hematoma. Radial pulses preserved. Patient is advised to avoid any heavy lifting, pushing, pulling, especially the right arm Plan - Discharge Summary Discharge Rx Participant: Yes New Discharge Prescriptions: New Nitroglycerin Sl Tabs [Nitrostat] 0.4 mg SUBLINGUAL Q5M PRN #25 tab PRN Reason: Chest Pain Continue Aspirin 81 mg PO DAILY Multivitamins, Thera [Multivitamin (formulary)] 1 tab PO DAILY Ferrous Sulfate [Iron (65 MG Elemental)] 325 mg PO DAILY Clopidogrel [Plavix] 75 mg PO DAILY #90 tab Metoprolol Tartrate [Lopressor] 12.5 mg PO DAILY #90 tab Clobetasol Propionate [Temovate 0.05% Cream] 1 applic TOPICAL DAILY PRN PRN Reason: Rash Isosorbide Mononitrate ER [Imdur] 30 mg PO DAILY #30 tab Discharge Medication List Aspirin 81 mg PO DAILY 10/22/15 [History] Ferrous Sulfate [Iron (65 MG Elemental)] 325 mg PO DAILY 09/17/16 [History] Multivitamins, Thera [Multivitamin (formulary)] 1 tab PO DAILY 09/17/16 [History ] Clopidogrel [Plavix] 75 mg PO DAILY #90 tab 09/20/16 [Rx] Metoprolol Tartrate [Lopressor] 12.5 mg PO DAILY #90 tab 09/20/16 [Rx] Clobetasol Propionate [Temovate 0.05% Cream] 1 applic TOPICAL DAILY PRN [History] Isosorbide Mononitrate ER [Imdur] 30 mg PO DAILY #30 tab 11/12/16 [Rx] Nitroglycerin Sl Tabs [Nitrostat] 0.4 mg SUBLINGUAL Q5M PRN #25 tab 06/26/18 [Rx ] Follow up Appointment(s)/Referral(s): Andre Gaytan MD [STAFF PHYSICIAN] - 07/07/18 9:00 am Patient Instructions/Handouts: Heart Healthy Diet (DC), Coronary Intravascular Stent Placement (DC) Discharge Disposition: HOME SELF-CARE
[2018-06-26] MEDS ORDERED: MULTIVITAMINS, THERA 1 EACH TAB PO SCH (12:00)
[2018-06-26 12:15] VITALS: BP 123/76; PULSE 74; RESP 18; TEMP 97.6
== END 2018-06-26 13:49 | disposition home or self-care (01) ==
LOC: CATHCVL 08:26 → 3SCARD 14:52 → CATHCVL 06-26 13:49
PROVIDERS: ATTEND Internal Medicine Cardiovascular Disease
DX: I25.10 Atherosclerotic heart disease of native coronary artery without angina pectoris (principal); E78.5 Hyperlipidemia, unspecified; C61 Malignant neoplasm of prostate; R94.39 Abnormal result of other cardiovascular function study; Z95.5 Presence of coronary angioplasty implant and graft; Z79.899 Other long term (current) drug therapy; Z88.5 Allergy status to narcotic agent; Z79.02 Long term (current) use of antithrombotics/antiplatelets; Z79.82 Long term (current) use of aspirin; Z85.46 Personal history of malignant neoplasm of prostate
CPT/HCPCS: 93458; 92920; 80048; 85025; C1876 ×2; C1887; C1769 ×2; C1725 ×2; C1894; J2250; J2001; J3010; J1644; J0583; Q9967 ×2

== ENCOUNTER → 2018-08-02 | Outpatient (CLI) | payer OTHER ==
[2018-08-02 13:24] LABS: Basophils % (A) 1 %; Eosinophils # (A) 0.2 k/uL (0-0.7); Eosinophils % (A) 3 %; HCT 42.2 % (39.0-53.0); HGB 13.6 gm/dL (13.0-17.5); Lymphocytes % (A) 32 %; MCH 29.1 pg (25.0-35.0); MCHC 32.1 g/dL (31.0-37.0); MCV 90.5 fL (80.0-100.0); Mean Platelet Volume 6.4; Monocytes # (A) 0.3 k/uL (0-1.0); Monocytes % (A) 5 %; Neutrophils # (A) 3.7 k/uL (1.3-7.7); Neutrophils % (A) 59 %; Platelet Count 270 k/uL (150-450); RBC 4.67 m/uL (4.30-5.90); RDW 12.9 % (11.5-15.5); WBC 6.3 k/uL (3.8-10.6)
[2018-08-02 13:31] LABS: Anion Gap 6 mmol/L; Blood Urea Nitrogen 15 mg/dL (9-20); Calcium 9.9 mg/dL (8.4-10.2); Carbon Dioxide 30 mmol/L (22-30); Chloride 107 mmol/L (98-107); Glucose 115 mg/dL (74-99); Potassium 4.5 mmol/L (3.5-5.1); Sodium 143 mmol/L (137-145)
== END | disposition home or self-care (01) ==
LOC: LABPAT 12:05
PROVIDERS: ATTEND Urology
DX: Z01.812 Encounter for preprocedural laboratory examination (principal); C61 Malignant neoplasm of prostate; I25.10 Atherosclerotic heart disease of native coronary artery without angina pectoris; Z79.01 Long term (current) use of anticoagulants; Z95.5 Presence of coronary angioplasty implant and graft
CPT/HCPCS: 36415; 80048; 85025; 86850; 86900; 86901

== ENCOUNTER 2018-08-04 10:43 | Inpatient (IN) | payer OTHER ==
--- NOTE | 2018-07-21 19:21 | P.GSHP ---
History of Present Illness H&P Date: 07/21/18 Chief Complaint: Prostate cancer The patient is a 53-year-old white male whose PSA level was mildly elevated in January 2018 (3.7 and 4.0). NIA revealed right-sided asymmetrical enlargement with questionable nodularity. He underwent a prostate ultrasound, revealing a prostate volume of 21.5 mL. Biopsies revealed Kentrell's 68 adenocarcinoma in 8 of 12 biopsies. His metastatic evaluation consisted of a CT scan and bone scan, both of which were negative. Past Medical History Past Medical History: Coronary Artery Disease (CAD), Chest Pain / Angina Additional Past Medical History / Comment(s): Prostate cancer, borderline hypercholesterolemia (watching diet and taking fish oil), history of kidney stones History of Any Multi-Drug Resistant Organisms: None Reported Past Surgical History: Appendectomy, Heart Catheterization With Stent Additional Past Surgical History / Comment(s): colonoscopy negative Past Anesthesia/Blood Transfusion Reactions: No Reported Reaction Additional Past Anesthesia/Blood Transfusion Reaction / Comment(s): no hx of surgeries Date of Last Stent Placement:: 08/2016 Past Psychological History: No Psychological Hx Reported Smoking Status: Never smoker Past Alcohol Use History: None Reported Past Drug Use History: None Reported - Past Family History Father Family Medical History: Congestive Heart Failure (CHF), Diabetes Mellitus, Myocardial Infarction ([place]) Additional Family Medical History / Comment(s): CABG, coronary ablation, coronary stentskidney and liver failure - passed at 72 Mother Family Medical History: Cancer Additional Family Medical History / Comment(s): breast cancer Medications and Allergies Home Medications Medication Instructions Recorded Confirmed Type Aspirin 81 mg PO DAILY 10/22/15 06/25/18 History Ferrous Sulfate [Iron (65 MG 325 mg PO DAILY 09/17/16 06/25/18 History Elemental)] Multivitamins, Thera [Multivitamin 1 tab PO DAILY 09/17/16 06/25/18 History (formulary)] Clopidogrel [Plavix] 75 mg PO DAILY #90 tab 09/20/16 06/24/18 Rx Metoprolol Tartrate [Lopressor] 12.5 mg PO DAILY #90 tab 09/20/16 06/25/18 Rx Clobetasol Propionate [Temovate 1 applic TOPICAL DAILY PRN 11/11/16 06/24/18 History 0.05% Cream] Isosorbide Mononitrate ER [Imdur] 30 mg PO DAILY #30 tab 11/12/16 06/25/18 Rx Nitroglycerin Sl Tabs [Nitrostat] 0.4 mg SUBLINGUAL Q5M PRN #25 tab 06/26/18 Rx Allergies Allergy/AdvReac Type Severity Reaction Status Date / Time oxycodone HCl [From Percocet] AdvReac VOMITING, Verified 06/24/18 14:31 HOT FLASHES, ROOM SPINNING Surgical - Exam - General well developed, well nourished, no distress - Respiratory normal respiratory effort, clear to auscultation - Cardiovascular Rhythm: regular Abnormal Heart Sounds: no systolic murmur, no diastolic murmur, no rub, no S3 Gallop, no S4 Gallop, no click, no other - Abdomen Abdomen: soft, non tender, no guarding, no rigid, no rebound Hernia: none - Genitourinary normal penis with no external lesions, testicles non-tender - Rectum Rectum: other (Right-sided enlargement with questionable nodule) - Psychiatric oriented to time, oriented to person, oriented to place, speech is normal, memory intact Assessment and Plan (1) Prostate CA Status: Acute Code(s): C61 - MALIGNANT NEOPLASM OF PROSTATE SNOMED Code(s): 412517657 Plan: Robotic-assisted laparoscopic prostatectomy (RALP) with bilateral pelvic lymphadenectomy. The procedure has been reviewed in detail with the patient and his . It was explained to him that he is not a candidate for preservation of the neurovascular bundles, and that he will experience erectile dysfunction as a result of this. The anticipated perioperative course has been discussed, along with potential risks. These include anesthesia, bleeding, infection, neurovascular injury, bowel injury, urinary leak, lymphocele, and vesical neck contracture. The patient is aware of the likelihood of postoperative urinary incontinence, which may be permanent. The possible need to convert to an open procedure was discussed, as was the possible need for adjuvant therapy. He underwent PTCA with stent placement in late June 2018 and has been cleared by Cardiology for surgery.
[~2018-08-04 10:43] MED LIST changes: -ALPRAZolam 0.25 MG TAB PO PRN; -ASPIRIN 325 MG TAB PO ONE; +DEXAMETHASONE SOD PHOSPHATE 10 MG/ML 1 ML VIAL IV ONE; +HEPARIN SODIUM,PORCINE 5,000 UNIT/ML 1 ML VIAL SQ ONE; +MIDAZOLAM 2 MG/2 ML VIAL IV PRN; -NITROGLYCERIN SL TABS 0.4 MG TAB SUBLINGUAL PRN; +SCOPOLAMINE 1.5MG/72HR PATCH TRANSDERM ONE; -SODIUM CHLORIDE 0.9% 1,000 ML in EMPTY BAG 1 BAG IV ONE; +ceFAZolin IN SWFI 2 GM/20 ML SYRINGE IVP ONE; +fentaNYL (PF) 50 MCG/ML 2 ML AMP IV PRN
[2018-08-04] MEDS ORDERED: LIDOCAINE 1% 20 ML VIAL (10MG/ML) FOR IV START INTRADERMA ONE ×2 (12:00)
[2018-08-04] MEDS: ONDANSETRON 4 MG/2 ML VIAL IVP ONE ×2 (12:00→18:00)
[2018-08-04] MEDS: LACTATED RINGERS 1,000 ML IV SCH (12:00)
[2018-08-04] MEDS ORDERED: GLYCOPYRROLATE 0.2 MG/ML 2 ML VIAL ONE (12:34)
[2018-08-04] MEDS ORDERED: PROPOFOL 10 MG/ML 20 ML VIAL IV ONE (12:34)
[2018-08-04] MEDS ORDERED: NEOSTIGMINE 1 MG/ML 10 ML VIAL ONE (12:34)
[2018-08-04] MEDS ORDERED: MIDAZOLAM 2 MG/2 ML VIAL ONE (12:34)
[2018-08-04] MEDS ORDERED: LIDOCAINE 1% INJ 10MG/ML (20 ML MDV) ONE (12:34)
[2018-08-04] MEDS ORDERED: SUCCINYLCHOLINE CHLORIDE 100 MG/5 ML SYR IV ONE (12:34)
[2018-08-04] MEDS ORDERED: ROCURONIUM BROMIDE 10 MG/ML 10 ML VIAL IV ONE (12:34)
[2018-08-04] MEDS ORDERED: fentaNYL (PF) 50 MCG/ML 2 ML AMP ONE (12:34)
[2018-08-04] MEDS ORDERED: ePHEDrine SULFATE/0.9% NACL/PF 50 MG/5 ML SYRINGE IV ONE (12:34)
[2018-08-04] MEDS ORDERED: BUPIVACAINE (PF) 0.25% 30 ML VIAL SQ ONE (13:54)
[2018-08-04] MEDS ORDERED: CLOBETASOL PROP 0.05% CR 15GM TOPICAL PRN (17:18)
[2018-08-04] MEDS ORDERED: NITROGLYCERIN SL TABS 0.4 MG TAB SUBLINGUAL PRN (17:18)
--- NOTE | 2018-08-04 17:18 | P.OP ---
Date of Procedure: 08/04/18 Preoperative Diagnosis: Adenocarcinoma of the Prostate, Clinical Stage [id number] Postoperative Diagnosis: Same Procedure(s) Performed: Robotic-assisted Laparoscopic Prostatectomy (RALP) with Bilateral Pelvic Lymphadenectomy Anesthesia: CANDY Surgeon: Steffen Tripathi Filling Technician #1: Chrissy Garcia Estimated Blood Loss (ml): 200 IV fluids (ml): 600 Pathology: other (Prostate, seminal vesicles, bilateral pelvic lymph nodes) Condition: stable Disposition: PACU Indications for Procedure: The patient is a 53-year-old white male whose PSA level was mildly elevated in January 2018 (3.7 and 4.0). NIA revealed right-sided asymmetrical enlargement with questionable nodularity. He underwent a prostate ultrasound, revealing a prostate volume of 21.5 mL. Biopsies revealed Murphy's 68 adenocarcinoma in 8 of 12 biopsies. His metastatic evaluation consisted of a CT scan and bone scan, both of which were negative. Operative Findings: No evidence of extraprostatic disease. Description of Procedure: The patient was taken in the operating room and placed in the dorsal lithotomy position, with his legs supported in Yogi stirrups. He was carefully positioned on a beanbag for stability. The abdomen and external genitalia were prepped and draped sterilely. A Oliver catheter was inserted. The Veress needle was passed through the anterior abdominal wall immediately cephalad to the umbilicus, and insufflation was performed to a pressure of 20 mm Hg. Once insufflation was performed, the Veress needle was removed and a supraumbilical incision was made, through which a 12 mm camera port was placed. Under camera guidance, 3 8 mm robotic ports were placed, 2 on the left and one on the right. An additional 12 mm port was placed on the right lateral side for use as an programs assistant port. A 5 mm port was placed to the right of the camera port for suction. The patient was placed in Trendelenburg position, and docking was then performed to the da Chucho system utilizing a 4-arm approach. The abdomen was examined. The sigmoid colon was mobilized out of the pelvis. The peritoneum was incised lateral to the medial umbilical ligaments bilaterally , exposing the pubis. The peritoneum was then incised across the midline, allowing the bladder flap to be taken down. The endopelvic fascia was opened bilaterally, and muscular attachments from the urogenital diaphragm were swept away from the prostate. Bilateral pelvic lymphadenectomies were performed in the standard fashion. The peritoneal incisions were extended in a cephalad direction, and the vas deferens were divided bilaterally. Margins of dissection were the bifurcation of the iliac vessels proximally, the circumflex iliac vein distally, the genitofemoral nerve laterally, and the obturator nerve medially. A combination of sharp and blunt dissection was used. Care was taken to avoid any neurovascular injury, and the use of monopolar electrocautery was avoided immediately adjacent to neurovascular structures. The lymphatic package was clipped distally. No enlarged lymph nodes were encountered. There were no complications. The vesical neck was incised transversely, down to the lumen. The Oliver catheter was brought out through the anterior vesical neck incision and was used for traction. The posterior aspect of the vesical neck was incised, such that the full-thickness of the vesical neck was divided. The anterior layer of the Denonvilliers fascia was incised, exposing the vas deferens. Each were isolated and divided. Next, each of the seminal vesicles were dissected away from adjacent tissues, and vascular attachments were cauterized and divided. The posterior leaf of Denonvilliers fascia was incised transversely, allowing entry into the plane between the prostate and rectum. With lateral spreading, this plane was developed down to the apex. This exposed the lateral vascular pedicles bilaterally. These were clipped and divided in an antegrade fashion, down to the apex. The plane of dissection was away from the prostate, as the neurovascular bundles were not preserved. The remaining apical attachments were swept away from the prostate. The dorsal venous complex was incised, as well as periurethral tissue. At this point, only the urethra remained intact. This was transected immediately distal to the prostatic apex using cold scissors. The specimen was placed within a specimen bag. The dorsal venous complex was sutured using a V-Loc suture in a running fashion. The suture was passed through the periosteum of the pubis periurethral support. A second V-Loc suture was then used to place the David stitch, incorporating the rhabdosphincter and the edge of Denonvilliers fascia. This allowed the bladder to be taken down to the urethra, leaving the vesical neck immediately adjacent to the urethra. The vesicourethral anastomosis was then performed using a V-Loc suture in a running fashion. After completing the anastomosis, an 18-Togolese Oliver catheter was placed and approximately 150 mL of 0.9 normal saline were instilled into the bladder. No extravasation of irrigant from the vesicourethral anastomosis was noted. Minimal oozing was noted from the vascular pedicles, so Surgicel was placed bilaterally. Tisseel was sprayed into the pelvis over the vascular pedicles, dorsal vein, and vesicourethral anastomosis. The patient was returned to the supine position. Undocking was performed, and the specimen bag sutures were passed through the camera port. After removing all the ports and allowing all of the CO2 to be released from the peritoneal cavity, the camera port incision was enlarged to allow removal of the surgical specimen. The fascia of this incision was then closed using 0 Vicryl suture in an interrupted [id number] fashion. Each of the skin incisions were then closed using 4-0 Monocryl suture in a subcuticular fashion. Marcaine was injected at each of the incision sites. Dermabond was applied to each incision. The Oliver catheter was connected to gravity drainage. All sponge and needle counts were correct. The patient tolerated the procedure well was taken to the recovery room in stable condition.
[2018-08-04] MEDS ORDERED: HYDROmorphone 1 MG/ML 1 ML SYRINGE IVP PRN (17:19)
[2018-08-04] MEDS ORDERED: ACETAMINOPHEN TAB 325 MG TAB PO PRN (17:19)
[2018-08-04] MEDS ORDERED: KETOROLAC 30 MG/ML 1 ML VIAL IVP PRN (17:19)
[2018-08-04] MEDS ORDERED: ONDANSETRON 4 MG/2 ML VIAL IVP PRN (17:19)
[2018-08-04] MEDS: HYDROmorphone 1 MG/ML 1 ML SYRINGE IVP ONE ×4 (17:54→18:35)
[2018-08-04] MEDS: D5-0.45% NACL WITH KCL 20MEQ/L 1,000 ML IV SCH (21:06)
[2018-08-04] MEDS: HEPARIN SODIUM,PORCINE 5,000 UNIT/ML 1 ML VIAL SQ SCH (21:22)
[2018-08-04 22:58] VITALS: BMI 75.6
[2018-08-05 00:41] VITALS: RESP 16; TEMP 98.4
[2018-08-05 07:35] VITALS: BP 119/64; PULSE 83
[2018-08-05] MEDS: HEPARIN SODIUM,PORCINE 5,000 UNIT/ML 1 ML VIAL SQ SCH (08:46)
[2018-08-05] MEDS: D5-0.45% NACL WITH KCL 20MEQ/L 1,000 ML IV SCH (08:54)
[2018-08-05] MEDS ORDERED: METOPROLOL TARTRATE 12.5 MG TAB PO SCH (09:00)
[2018-08-05] MEDS ORDERED: ISOSORBIDE MONONITRATE ER 30 MG TAB.ER.24H PO SCH (09:00)
[2018-08-05] MEDS ORDERED: HYDROcodone/APAP 5-325MG 1 EACH TAB PO PRN ×2 (10:50)
--- NOTE | 2018-08-05 10:56 | P.DS ---
Providers Date of admission: 08/04/18 10:43 Expected date of discharge: 08/05/18 Attending physician: Steffen Tripathi Primary care physician: Mitchell Wharton - Discharge Diagnosis(es) (1) Prostate CA Current Visit: Yes Status: Acute Hospital Course: Review of admission, the patient underwent an uncomplicated robotic assisted laparoscopic prostatectomy with bilateral pelvic lymphadenectomy. The perioperative course was unremarkable. He remained afebrile with stable vital signs. On the first postoperative day, he tolerated clear liquid diet and was ambulating without difficulty. He reported mild abdominal discomfort but was not taking any analgesics. The Oliver catheter was draining clear yellow urine. The incisions were clean and dry. He was passing flatus but had not had a bowel movement. He reported mild abdominal cramping. Procedures: Robotic-assisted laparoscopic prostatectomy (RALP) with bilateral pelvic lympha denectomy on 08/04/2018. Patient Condition at Discharge: Good Plan - Discharge Summary Discharge Rx Participant: Yes New Discharge Prescriptions: New Ciprofloxacin HCl [Cipro] 250 mg PO Q12HR #6 tablet Ketorolac [Toradol] 10 mg PO Q6HR #12 tab No Action Aspirin 81 mg PO DAILY Multivitamins, Thera [Multivitamin (formulary)] 1 tab PO DAILY Ferrous Sulfate [Iron (65 MG Elemental)] 325 mg PO DAILY Clopidogrel [Plavix] 75 mg PO DAILY #90 tab Metoprolol Tartrate [Lopressor] 12.5 mg PO DAILY #90 tab Clobetasol Propionate [Temovate 0.05% Cream] 1 applic TOPICAL DAILY PRN PRN Reason: Rash Isosorbide Mononitrate ER [Imdur] 30 mg PO DAILY #30 tab Nitroglycerin Sl Tabs [Nitrostat] 0.4 mg SUBLINGUAL Q5M PRN #25 tab PRN Reason: Chest Pain Discharge Medication List Aspirin 81 mg PO DAILY 10/22/15 [History] Ferrous Sulfate [Iron (65 MG Elemental)] 325 mg PO DAILY 09/17/16 [History] Multivitamins, Thera [Multivitamin (formulary)] 1 tab PO DAILY 09/17/16 [History] Clopidogrel [Plavix] 75 mg PO DAILY #90 tab 09/20/16 [Rx] Metoprolol Tartrate [Lopressor] 12.5 mg PO DAILY #90 tab 09/20/16 [Rx] Clobetasol Propionate [Temovate 0.05% Cream] 1 applic TOPICAL DAILY PRN 11/11/16 [History] Isosorbide Mononitrate ER [Imdur] 30 mg PO DAILY #30 tab 11/12/16 [Rx] Nitroglycerin Sl Tabs [Nitrostat] 0.4 mg SUBLINGUAL Q5M PRN #25 tab 06/26/18 [Rx] Ciprofloxacin HCl [Cipro] 250 mg PO Q12HR #6 tablet 08/05/18 [Rx] Ketorolac [Toradol] 10 mg PO Q6HR #12 tab 08/05/18 [Rx] Follow up Appointment(s)/Referral(s): Steffen Tripathi MD [STAFF PHYSICIAN] - 08/14/18 Activity/Diet/Wound Care/Special Instructions: Discharge home with Oliver catheter. Instruct patient to use overnight drainage bag as well as urinary leg bag. OK to shower. Diet as tolerated. No lifting, driving, or strenuous activity. Reassure patient that abdominal wall ecchymosis and penoscrotal swelling are normal. Patient may resume aspirin 81 mg daily on 08/06/2018. He may resume Plavix on 08/09/2018. Instruct patient to begin taking antibiotics one day prior to follow-up appointment. Discharge Disposition: HOME SELF-CARE
== END 2018-08-05 12:50 | disposition home or self-care (01) | DRG 708 ==
LOC: 2ORMAIN 10:43 → 4SSUR 17:25
PROVIDERS: ADMIT Urology; ATTEND Urology
PROC: 07TC4ZZ Resection of Pelvis Lymphatic, Percutaneous Endoscopic Approach (ICD-10-PCS; 2018-08-04)
PROC: 8E0W4CZ Robotic Assisted Procedure of Trunk Region, Percutaneous Endoscopic Approach (ICD-10-PCS; 2018-08-04)
PROC: 0VT04ZZ Resection of Prostate, Percutaneous Endoscopic Approach (ICD-10-PCS; principal; 2018-08-04 12:30)
DX: C61 Malignant neoplasm of prostate (principal); E78.00 Pure hypercholesterolemia, unspecified; I25.10 Atherosclerotic heart disease of native coronary artery without angina pectoris; I25.2 Old myocardial infarction; I10 Essential (primary) hypertension; E78.5 Hyperlipidemia, unspecified; Z79.02 Long term (current) use of antithrombotics/antiplatelets; Z79.82 Long term (current) use of aspirin; Z79.899 Other long term (current) drug therapy; Z95.5 Presence of coronary angioplasty implant and graft; Z87.442 Personal history of urinary calculi; Z88.5 Allergy status to narcotic agent; Z90.49 Acquired absence of other specified parts of digestive tract; Z80.3 Family history of malignant neoplasm of breast; Z82.49 Family history of ischemic heart disease and other diseases of the circulatory system; Z83.3 Family history of diabetes mellitus
CPT/HCPCS: 86850; 86900; 86901; 88307; 88309

== ENCOUNTER → 2018-09-13 | Outpatient (CLI) | payer OTHER | END | disposition home or self-care (01) | LOC: LABWHC1 09:14 | PROVIDERS: ATTEND Urology | DX: C61 Malignant neoplasm of prostate (principal) | CPT/HCPCS: 36415; 84153 ==

== ENCOUNTER → 2018-11-30 | Outpatient (CLI) | payer OTHER ==
[2018-11-30 16:35] LABS: LDL Cholesterol,Calculated 64.4 mg/dL (0.0-131.0); VLDL Calculation 23.6 mg/dL (5.00-40.00)
== END | disposition home or self-care (01) ==
LOC: LABWHC1 06:33
PROVIDERS: ATTEND Internal Medicine Cardiovascular Disease
DX: C61 Malignant neoplasm of prostate (principal); I25.10 Atherosclerotic heart disease of native coronary artery without angina pectoris; E78.5 Hyperlipidemia, unspecified
CPT/HCPCS: 36415; 80061; 84153; 84450; 84460

== ENCOUNTER 2019-02-27 22:03 | Observation (INO) | payer OTHER ==
--- NOTE | 2019-02-27 22:28 | ED ---
Chest Pain HPI - General Chief Complaint: Chest Pain Stated Complaint: Chest pressure Time Seen by Provider: 02/27/19 22:19 Source: patient, family Mode of arrival: ambulatory Limitations: no limitations - History of Present Illness Initial Comments: This patient is a 53-year-old man with history of previous coronary artery disease and 3 previous stent placements. He states that this afternoon he noticed that he was having tightness across his chest. He states that the symptoms were similar to what he had prior to his previous stent placements. He also noticed that over the past few days she has had some bilateral ankle swelling. Patient has had recent flight here from [place]. He denies neha chest pain area no cough or hemoptysis. No fever or chills. He has not had anginal symptoms, including no dyspnea, diaphoresis, palpitations, lightheadedness or syncope, no nausea or vomiting. MD Complaint: chest pain -: hour(s) Onset: during rest Pain Location: substernal, left chest, right chest Pain Radiation: none Severity: mild Quality: tightness Consistency: constant Improves With: nothing Worsens With: nothing Other Symptoms: leg swelling Treatments Prior to Arrival: none - Related Data Home Medications Medication Instructions Recorded Confirmed Aspirin 81 mg PO DAILY 10/22/15 02/27/19 Ferrous Sulfate [Iron (65 MG 325 mg PO DAILY 09/17/16 02/27/19 Elemental)] Multivitamins, Thera [Multivitamin 1 tab PO DAILY 09/17/16 02/27/19 (formulary)] Clopidogrel [Plavix] 75 mg PO QAM 08/12/18 02/27/19 Isosorbide Mononitrate ER [Imdur] 30 mg PO QAM 08/12/18 02/27/19 Metoprolol Tartrate [Lopressor] 12.5 mg PO QAM 08/12/18 02/27/19 Atorvastatin Calcium [Lipitor] 80 mg PO HS 02/27/19 02/27/19 Allergies Allergy/AdvReac Type Severity Reaction Status Date / Time oxycodone HCl [From Percocet] AdvReac VOMITING, Verified 02/27/19 22:31 HOT FLASHES, ROOM SPINNING Review of Systems ROS Statement: Those systems with pertinent positive or pertinent negative responses have been documented in the HPI. ROS Other: All systems not noted in ROS Statement are negative. Constitutional: Denies: fever, chills, weakness Respiratory: Denies: cough, dyspnea Cardiovascular: Reports: chest pain, edema. Denies: palpitations, orthopnea, syncope Gastrointestinal: Denies: abdominal pain, nausea, vomiting Genitourinary: Denies: dysuria, hematuria Musculoskeletal: Denies: back pain Skin: Denies: rash Neurological: Denies: headache, weakness, numbness EKG Findings - EKG Results: EKG: interpreted by MICHAEL CARTWRIGHT, sinus rhythm (Rate 67 bpm), normal axis, normal QRS, normal ST/T - [place], Pacemaker, Normal: Normal tracing: normal tracing Past Medical History Past Medical History: Chest Pain / Angina Additional Past Medical History / Comment(s): slightly high cholestrol watching diet and taking fish oil, kidney stones in the past History of Any Multi-Drug Resistant Organisms: None Reported Past Surgical History: Heart Catheterization With Stent, Prostate Surgery Additional Past Surgical History / Comment(s): colonoscopy negative Past Anesthesia/Blood Transfusion Reactions: No Reported Reaction Additional Past Anesthesia/Blood Transfusion Reaction / Comment(s): no hx of feliciano rgeries Date of Last Stent Placement:: 06/25/2018 Past Psychological History: No Psychological Hx Reported Smoking Status: Never smoker Past Alcohol Use History: None Reported Past Drug Use History: None Reported - Past Family History Father Family Medical History: Congestive Heart Failure (CHF), Diabetes Mellitus, Myocardial Infarction ([place]) Additional Family Medical History / Comment(s): CABG, coronary ablation, coronary stentskidney and liver failure - passed at 72 Mother Family Medical History: Cancer Additional Family Medical History / Comment(s): breast cancer General Exam Limitations: no limitations General appearance: alert, in no apparent distress Head exam: Present: atraumatic, normocephalic Eye exam: Present: normal appearance. Absent: scleral icterus, conjunctival injection Neck exam: Present: normal inspection Respiratory exam: Present: normal lung sounds bilaterally. Absent: respiratory distress, wheezes, rales, rhonchi, stridor, chest wall tenderness Cardiovascular Exam: Present: regular rate, normal rhythm, normal heart sounds. Absent: systolic murmur, diastolic murmur, rubs, gallop GI/Abdominal exam: Present: soft. Absent: distended, tenderness, guarding, rebound, rigid Extremities exam: Present: normal inspection, normal capillary refill, pedal edema (Trace of swelling at the ankles bilaterally). Absent: calf tenderness Back exam: Present: normal inspection. Absent: CVA tenderness (R), CVA tenderness (L) Neurological exam: Present: alert Skin exam: Present: warm, dry, intact, normal color. Absent: rash Course Vital Signs 02/27/19 02/27/19 02/27/19 22:07 22:26 23:23 Temperature 98.1 F 98 F Pulse Rate 62 60 Pulse Rate [ 63 Structural Shop Helper ] Respiratory 20 18 Rate Blood Pressure 149/79 117/76 O2 Sat by Pulse 97 98 Oximetry Disposition Clinical Impression: Chest pain Disposition: ADMITTED IP TO THIS HOSP Condition: Good Instructions (If sedation given, give patient instructions): Chest Pain (ED) Is patient prescribed a controlled substance at d/c from ED?: No Referrals: Mitchell Wharton MD [Primary Care Provider] - 1-2 days
[2019-02-27] MEDS ORDERED: NITROGLYCERIN SL TABS 0.4 MG TAB SUBLINGUAL STA (22:41)
[2019-02-27] MEDS ORDERED: ASPIRIN 81 MG PO STA (22:41)
[2019-02-27 22:54] LABS: Basophils % (A) 0 %; Eosinophils # (A) 0.2 k/uL (0-0.7); Eosinophils % (A) 3 %; HGB 14.3 gm/dL (13.0-17.5); Lymphocytes # (A) 2.1 k/uL (1.0-4.8); Lymphocytes % (A) 28 %; MCH 29.9 pg (25.0-35.0); MCHC 35.8 g/dL (31.0-37.0); MCV 83.4 fL (80.0-100.0); Mean Platelet Volume 6.1; Monocytes # (A) 0.4 k/uL (0-1.0); Monocytes % (A) 6 %; Neutrophils # (A) 4.9 k/uL (1.3-7.7); Neutrophils % (A) 63 %; Platelet Count 284 k/uL (150-450); RDW 12.9 % (11.5-15.5); WBC 7.8 k/uL (3.8-10.6)
[2019-02-27 23:03] LABS: ALT 33 U/L (21-72); AST 30 U/L (17-59); African American GFR (CKD) >90 (>60 ml/min/1.73 sqM); Albumin 4.2 g/dL (3.5-5.0); Alkaline Phosphatase 68 U/L (38-126); Amylase 49 U/L (30-110); Anion Gap 10 mmol/L; Blood Urea Nitrogen 16 mg/dL (9-20); Calcium 9.6 mg/dL (8.4-10.2); Carbon Dioxide 26 mmol/L (22-30); Chloride 105 mmol/L (98-107); Glucose 118 mg/dL (74-99); Potassium 4.2 mmol/L (3.5-5.1); Sodium 141 mmol/L (137-145); Total Bilirubin 0.4 mg/dL (0.2-1.3); Total Protein 7.1 g/dL (6.3-8.2)
[2019-02-27 23:07] LABS: D-Dimer 0.46 mg/L FEU (<0.60); INR 0.9 (<1.2); Partial Thromboplastin Time 24.3 sec (22.0-30.0); Prothrombin Time 9.6 sec (9.0-12.0)
--- NOTE | 2019-02-27 23:17 | XR ---
EXAMINATION TYPE: XR chest 2V DATE OF EXAM: 02/27/2019 COMPARISON: 11/11/2016 HISTORY: Chest pain TECHNIQUE: Frontal and lateral views of the chest are obtained. FINDINGS: Heart and mediastinum are normal. Lungs are clear. Diaphragm is normal. There are chest le ads. Bony thorax is intact. IMPRESSION: Normal chest. No change.
[2019-02-27] MEDS ORDERED: NITROGLYCERIN SL TABS 0.4 MG TAB SUBLINGUAL PRN (23:42)
[2019-02-28] MEDS: SODIUM CHLORIDE 0.9% 1,000 ML IV SCH ×2 (00:18→19:59)
[2019-02-28 04:26] LABS: Cholesterol 116 mg/dL (<200); HDL Cholesterol 36 mg/dL (40-60); LDL Cholesterol,Calculated 46 mg/dL (0-99); Triglycerides 168 mg/dL (<150)
[2019-02-28] MEDS ORDERED: ISOSORBIDE MONONITRATE ER 30 MG TAB.ER.24H PO SCH (09:00)
[2019-02-28] MEDS ORDERED: ASPIRIN 325 MG TAB PO SCH (09:00)
--- NOTE | 2019-02-28 09:44 | P.CRDCN ---
History of Present Illness History of present illness: This is a pleasant 53-year-old male past medical history significant for coronary artery disease status post multiple stent placements, hypertension, dyslipidemia and prostate cancer status post robotic prostatectomy with bilateral pelvic lymphadenectomy. He follows in the office with Dr. Gaytan. We have been asked to see him in consultation secondary to chest discomfort. He describes a tightness across the chest yesterday at rest, that felt like a band wrapping around his upper body. The discomfort lasted a couple hours and slowly subsided on its own. There was no radiation or associated symptoms. He is seen and examined resting comfortably in no acute distress. He denies any further episodes of chest discomfort. He states this does feel somewhat similar to how he felt prior to his stent placement. He initially underwent a stress test in the office prior to prostate surgery that was found to be abnormal. He underwent cardiac catheterization 06/2018 and successful stent placement of the mid-distal and distal RCA with bare metal stents. In July he underwent prostatectomy with Dr. Tripathi. Two weeks after surgery he had FFR and stenting of the LAD with IMELDA. Of note he already had a stent in the proximal portion of LAD that was patent. He also has 20-30% distal left main disease. EKG reveals sinus mechanism with no acute ST-T wave abnormalities noted. Chest x-ray is negative for an acute cardiopulmonary process. Laboratory data reviewed, CBC unremarkable, d-dimer 0.46, sodium 141, potassium 4.2, creatinine 0.94, magnesium 2.0, cardiac enzymes negative 2, proBNP 31, LDL 46. Current daily cardiac medications include aspirin 81 mg daily, atorvastatin 80 mg daily, Plavix 75 mg daily, Imdur 30 mg daily and Lopressor 12.5 mg in the morning. At the time of my exam: CONSTITUTIONAL: Denies fever. Denies chills. EYES: Denies blurred vision. Denies vision changes. Denies eye pain. EARS, NOSE, MOUTH & THROAT: Denies headache. Denies sore throat. Denies ear pain. CARDIOVASCULAR: Denies chest pain. Denies shortness of breath. Denies orthopnea. Denies PND. Denies palpitations. RESPIRATORY: Denies cough. GASTROINTESTINAL: Denies abdominal pain. Denies diarrhea. Denies constipation. Denies nausea. Denies vomiting. MUSCULOSKELETAL: Denies myalgias. INTEGUMENTARY: Denies pruitis. Denies rash. NEUROLOGIC: Denies numbness. Denies tingling. Denies weakness. PSYCHIATRIC: Denies anxiety. Denies depression. ENDOCRINE: Denies fatigue. Denies weight change. Denies polydipsia. Denies polyurina. GENITOURINARY: Denies burning, hematuria or urgency with micturation. HEMATOLOGIC: Denies history of anemia. Denies bleeding. Blood pressure 115/71 heart rate 55 afebrile maintaining oxygen saturation on room air GENERAL: This is a 53-year-old male in no apparent distress at the time of my examination. HEENT: Head is atraumatic, normocephalic. Pupils are equal, round. Sclerae anicteric. Conjunctivae are clear. Mucous membranes of the mouth are moist. Neck is supple. There is no jugular venous distention. No carotid bruit is heard. LUNGS: Clear to auscultation no wheezes, rales or rhonchi. No chest wall tenderness is noted on palpation or with deep breathing. HEART: Regular rate and rhythm without murmurs, rubs or gallops. S1 and S2 heard. ABDOMEN: Soft, nontender. Bowel sounds are heard. No organomegaly noted. EXTREMITIES: No evidence of peripheral edema and no calf tenderness noted. VASCULAR: Radial and dorsalis pedis pulses palpated, no evidence of clubbing. NEUROLOGIC: Patient is awake, alert and oriented x3. ASSESSMENT Chest pain, atypical for angina. History of coronary artery disease Hypertension Dyslipidemia History of prostate cancer status post prostatectomy PLAN Recommend Cardiolyte stress test to assess for reversible cardiac ischemia. Obtain 2D echocardiogram and doppler study to assess cardiac structure and function. Continue aspirin, plavix, atorvastatin, imdur and lopressor as previously ordere d. If abnormality in stress testing we will pursue coronary angiography. Thank you kindly for this consultation. Nurse Practitioner note has been reviewed, I agree with a documented findings and plan of care. Patient was seen and examined. Past Medical History Past Medical History: Chest Pain / Angina, Hyperlipidemia Additional Past Medical History / Comment(s): slightly high cholestrol watching diet and taking fish oil, kidney stones in the past History of Any Multi-Drug Resistant Organisms: None Reported Past Surgical History: Appendectomy, Heart Catheterization With Stent, Prostate Surgery Additional Past Surgical History / Comment(s): colonoscopy negative Past Anesthesia/Blood Transfusion Reactions: No Reported Reaction Additional Past Anesthesia/Blood Transfusion Reaction / Comment(s): no hx of surgeries Date of Last Stent Placement:: 06/25/2018 Past Psychological History: No Psychological Hx Reported Smoking Status: Never smoker Past Alcohol Use History: None Reported Past Drug Use History: None Reported - Past Family History Father Family Medical History: Congestive Heart Failure (CHF), Diabetes Mellitus, Myocardial Infarction ([place]) Additional Family Medical History / Comment(s): CABG, coronary ablation, coronary stentskidney and liver failure - passed at 72 Mother Family Medical History: Cancer Additional Family Medical History / Comment(s): breast cancer Medications and Allergies Home Medications Medication Instructions Recorded Confirmed Type Aspirin 81 mg PO DAILY 10/22/15 02/27/19 History Ferrous Sulfate [Iron (65 MG 325 mg PO DAILY 09/17/16 02/27/19 History Elemental)] Multivitamins, Thera [Multivitamin 1 tab PO DAILY 09/17/16 02/27/19 History (formulary)] Clopidogrel [Plavix] 75 mg PO QAM 08/12/18 02/27/19 History Isosorbide Mononitrate ER [Imdur] 30 mg PO QAM 08/12/18 02/27/19 History Metoprolol Tartrate [Lopressor] 12.5 mg PO QAM 08/12/18 02/27/19 History Atorvastatin Calcium [Lipitor] 80 mg PO HS 02/27/19 02/27/19 History Allergies Allergy/AdvReac Type Severity Reaction Status Date / Time oxycodone HCl [From Percocet] AdvReac VOMITING, Verified 02/27/19 22:31 HOT FLASHES, ROOM SPINNING Physical Exam Vitals: Vital Signs Temp Pulse Pulse Pulse Resp BP BP 02/28/19 07:15 97.5 F L 55 L 18 115/71 02/28/19 04:00 98.4 F 52 L 15 114/74 02/28/19 03:22 65 15 02/28/19 01:36 65 15 02/28/19 01:07 97.7 F 65 15 140/89 02/27/19 23:23 98 F 60 18 117/76 02/27/19 22:26 63 02/27/19 22:07 98.1 F 62 20 149/79 Pulse Ox 02/28/19 07:15 96 02/28/19 04:00 97 02/28/19 03:22 02/28/19 01:36 02/28/19 01:07 94 L 02/27/19 23:23 98 02/27/19 22:26 02/27/19 22:07 97 Intake and Output 02/27/19 02/28/19 02/28/19 22:59 06:59 14:59 Other: # Voids 1 Weight 110.223 kg Results 02/27/19 22:21 02/27/19 22:21 Cardiac Enzymes 02/27/19 02/27/19 02/28/19 Range/Units 22:21 22:21 03:53 AST 30 (17-59) U/L Troponin I <0.012 <0.012 (0.000-0.034) ng/mL Coagulation 02/27/19 Range/Units 22:21 PT 9.6 (9.0-12.0) sec APTT 24.3 (22.0-30.0) sec Lipids 02/28/19 Range/Units 03:53 Triglycerides 168 H (<150) mg/dL Cholesterol 116 (<200) mg/dL HDL Cholesterol 36 L (40-60) mg/dL CBC 02/27/19 Range/Units 22:21 WBC 7.8 (3.8-10.6) k/uL RBC 4.80 (4.30-5.90) m/uL Hgb 14.3 (13.0-17.5) gm/dL Hct 40.0 (39.0-53.0) % Plt Count 284 (150-450) k/uL Comprehensive Metabolic Panel 02/27/19 Range/Units 22:21 Sodium 141 (137-145) mmol/L Potassium 4.2 (3.5-5.1) mmol/L Chloride 105 (98-107) mmol/L Carbon Dioxide 26 (22-30) mmol/L BUN 16 (9-20) mg/dL Creatinine 0.94 (0.66-1.25) mg/dL Glucose 118 H (74-99) mg/dL Calcium 9.6 (8.4-10.2) mg/dL AST 30 (17-59) U/L ALT 33 (21-72) U/L Alkaline Phosphatase 68 (38-126) U/L Total Protein 7.1 (6.3-8.2) g/dL Albumin 4.2 (3.5-5.0) g/dL Current Medications Generic Name Dose Route Start Last Admin Trade Name Freq PRN Reason Stop Dose Admin Aspirin 325 mg 02/28/19 09:00 Aspirin PO DAILY [facility] Atorvastatin Calcium 80 mg 02/28/19 21:00 Lipitor PO HS NAHUN Clopidogrel Bisulfate 75 mg 02/28/19 09:00 Plavix PO QAM [facility] Ferrous Sulfate 325 mg 02/28/19 09:00 Feosol PO DAILY [facility] Sodium Chloride 1,000 mls @ 20 mls/hr 02/27/19 23:45 02/28/19 00:18 Saline 0.9% IV 20 mls/hr .Q24H NAHUN Administration Isosorbide Mononitrate 30 mg 02/28/19 09:00 Imdur PO QAM [facility] Metoprolol Tartrate 12.5 mg 02/28/19 09:00 Lopressor PO QAM [facility] Multivitamins 1 each 02/28/19 09:00 Theragran PO DAILY [facility] Intake and Output 02/27/19 02/28/19 02/28/19 22:59 06:59 14:59 Other: # Voids 1 Weight 110.223 kg 02/27/19 22:21 02/27/19 22:21
[2019-02-28] MEDS: METOPROLOL TARTRATE 12.5 MG TAB PO SCH (12:46)
[2019-02-28] MEDS: ASPIRIN 81 MG PO SCH (12:46)
[2019-02-28] MEDS: FERROUS SULFATE 325 MG TAB PO SCH (12:46)
[2019-02-28] MEDS: MULTIVITAMINS, THERA 1 EACH TAB PO SCH (12:46)
[2019-02-28] MEDS: CLOPIDOGREL 75 MG TAB PO SCH (12:47)
--- NOTE | 2019-02-28 12:51 | P.HPIM ---
History of Present Illness 53-year-old male presented to the emergency room with complaints of chest pressure for of coronary disease with stents. Patient also had prostatectomy has hyperlipidemia and hypertension 7 hours constant. Denies nausea sweats or s hortness of breath. Patient does have history of coronary artery disease with stents history of prostatectomy hypertension hyperlipidemia Review of Systems Cardiovascular: Reports chest pain Past Medical History Past Medical History: Chest Pain / Angina, Hyperlipidemia Additional Past Medical History / Comment(s): slightly high cholestrol watching diet and taking fish oil, kidney stones in the past History of Any Multi-Drug Resistant Organisms: None Reported Past Surgical History: Appendectomy, Heart Catheterization With Stent, Prostate Surgery Additional Past Surgical History / Comment(s): colonoscopy negative Past Anesthesia/Blood Transfusion Reactions: No Reported Reaction Additional Past Anesthesia/Blood Transfusion Reaction / Comment(s): no hx of surgeries Date of Last Stent Placement:: 06/25/2018 Past Psychological History: No Psychological Hx Reported Smoking Status: Never smoker Past Alcohol Use History: None Reported Past Drug Use History: None Reported - Past Family History Father Family Medical History: Congestive Heart Failure (CHF), Diabetes Mellitus, Myocardial Infarction ([place]) Additional Family Medical History / Comment(s): CABG, coronary ablation, coronary stentskidney and liver failure - passed at 72 Mother Family Medical History: Cancer Additional Family Medical History / Comment(s): breast cancer Medications and Allergies Home Medications Medication Instructions Recorded Confirmed Type Aspirin 81 mg PO DAILY 10/22/15 02/27/19 History Ferrous Sulfate [Iron (65 MG 325 mg PO DAILY 09/17/16 02/27/19 History Elemental)] Multivitamins, Thera [Multivitamin 1 tab PO DAILY 09/17/16 02/27/19 History (formulary)] Clopidogrel [Plavix] 75 mg PO QAM 08/12/18 02/27/19 History Isosorbide Mononitrate ER [Imdur] 30 mg PO QAM 08/12/18 02/27/19 History Metoprolol Tartrate [Lopressor] 12.5 mg PO QAM 08/12/18 02/27/19 History Atorvastatin Calcium [Lipitor] 80 mg PO HS 02/27/19 02/27/19 History Allergies Allergy/AdvReac Type Severity Reaction Status Date / Time oxycodone HCl [From Percocet] AdvReac VOMITING, Verified 02/27/19 22:31 HOT FLASHES, ROOM SPINNING Physical Exam Vitals: Vital Signs Temp Pulse Pulse Pulse Resp BP BP 02/28/19 12:00 98.4 F 64 18 128/84 02/28/19 07:15 97.5 F L 55 L 18 115/71 02/28/19 04:00 98.4 F 52 L 15 114/74 02/28/19 03:22 65 15 02/28/19 01:36 65 15 02/28/19 01:07 97.7 F 65 15 140/89 02/27/19 23:23 98 F 60 18 117/76 02/27/19 22:26 63 02/27/19 22:07 98.1 F 62 20 149/79 Pulse Ox 02/28/19 12:00 95 02/28/19 07:15 96 02/28/19 04:00 97 02/28/19 03:22 02/28/19 01:36 02/28/19 01:07 94 L 02/27/19 23:23 98 02/27/19 22:26 02/27/19 22:07 97 Intake and Output 02/27/19 02/28/19 02/28/19 22:59 06:59 14:59 Other: Voiding Method Toilet # Voids 1 Weight 110.223 kg 110.223 kg - Constitutional General appearance: mild distress - EENT Eyes: PERRLA Ears: bilateral: normal - Neck Neck: normal ROM - Respiratory Respiratory: bilateral: CTA - Cardiovascular Rhythm: regular - Gastrointestinal General gastrointestinal: normal bowel sounds, soft - Integumentary Integumentary: normal - Neurologic Neurologic: CNII-XII intact - Psychiatric Psychiatric: A&O x's 3, appropriate affect, intact judgment & insight Results CBC & Chem 7: 02/27/19 22:21 02/27/19 22:21 Labs: Abnormal Lab Results - Last 24 Hours (Table) 02/27/19 02/28/19 Range/Units 22:21 03:53 Glucose 118 H (74-99) mg/dL Triglycerides 168 H (<150) mg/dL HDL Cholesterol 36 L (40-60) mg/dL Chest x-ray: report reviewed Thrombosis Risk Factor Assmnt - Choose All That Apply Any of the Below Risk Factors Present?: Yes Each Factor Represents 1 point: Acute [place], Age 41-60 years, Obesity (BMI >25) Other Risk Factors: No Other congenital or acquired thrombophilia - If yes, enter type in comment: No Thrombosis Risk Factor Assessment Total Risk Factor Score: 3 Thrombosis Risk Factor Assessment Level: Moderate Risk Assessment and Plan Plan: Assessment Chest pain troponin negative 3 EKG normal History of coronary disease with stents History of hypertension Hyperlipidemia Prostate cancer with prostatectomy Plan Patient has had stress test awaiting results Continue cardiology consultation
--- NOTE | 2019-02-28 13:43 | NM ---
EXAMINATION TYPE: NM stress cardiolite complete DATE OF EXAM: 02/28/2019 COMPARISON: NONE HISTORY: Chest pain TECHNIQUE: After the intravenous administration of 9.68 mCi Tc 99m Sestamibi - Rest images obtained 45 minutes post injection. The patient exercised using a LEIGH protocol and 1 minute prior to peak exercise was injected with 25.6 mCi Tc 99m Sestamibi - Stress images obtained 35 minutes post injecti on. FINDINGS: Targeted heart rate was achieved during performance of the study. Review of stress and rest SPECT heather ges demonstrates question of a tiny stress-induced reversibility involving the inferior myocardium. Gated analysis shows normal wall motion with an estimated left ventricular ejection fraction of 57 %. IMPRESSION: 1. Question a small area of stress-induced reversible ischemia involving the inferior myocardium jorge elate clinically.
[2019-02-28] MEDS ORDERED: ALPRAZolam 0.5 MG TAB PO PRN (14:10)
[2019-02-28] MEDS ORDERED: SODIUM CHLORIDE 0.9% 1,000 ML in EMPTY BAG 1 BAG IV ONE (14:10)
[2019-02-28] MEDS ORDERED: ALPRAZolam 0.25 MG TAB PO PRN (14:10)
--- NOTE | 2019-02-28 14:10 | P.PN ---
Subjective Stress test results discussed with the patient and his in detail. I have discussed the risks, benefits and alternative therapies for the above-mentioned procedure and for both sedation/analgesia as well as necessary blood product administration, if indicated, as they pertain to this patient. The patient has indicated understanding and acceptance of the risks and procedures discussed. Questions have been answered appropriately and he is agreeable to move forward with the above stated procedure. Orders have been placed. Objective - Vital Signs Vital signs: Vital Signs Temp 98.4 F 02/28/19 12:00 Pulse 64 02/28/19 12:00 Resp 18 02/28/19 12:00 BP 128/84 02/28/19 12:00 Pulse Ox 95 02/28/19 12:00 Intake & Output 02/27/19 02/28/19 02/28/19 18:59 06:59 18:59 Weight 110.223 kg 110.223 kg Other: Voiding Method Toilet # Voids 1 - Labs CBC & Chem 7: 02/27/19 22:21 02/27/19 22:21 Labs: Abnormal Lab Results - Last 24 Hours (Table) 02/27/19 02/28/19 Range/Units 22:21 03:53 Glucose 118 H (74-99) mg/dL Triglycerides 168 H (<150) mg/dL HDL Cholesterol 36 L (40-60) mg/dL
[2019-02-28] MEDS ORDERED: ASPIRIN 81 MG PO ONE (14:15)
[2019-02-28] MEDS ORDERED: SODIUM CHLORIDE 0.9% 1,000 ML IV ONE (17:35)
[2019-02-28] MEDS ORDERED: LIDOCAINE 1% INJ 10MG/ML (20 ML MDV) ONE (17:36)
[2019-02-28] MEDS ORDERED: VERAPAMIL 2.5 MG/ML 2 ML AMP ONE (17:37)
[2019-02-28] MEDS ORDERED: fentaNYL (PF) 50 MCG/ML 2 ML AMP ONE (17:37)
[2019-02-28] MEDS ORDERED: LIDOCAINE 1% INJ 10MG/ML (20 ML MDV) SQ ONE (17:47)
[2019-02-28] MEDS ORDERED: fentaNYL (PF) 50 MCG/ML 2 ML AMP IVP ONE (17:47)
[2019-02-28] MEDS ORDERED: MIDAZOLAM PF (FBP) 2 MG/2 ML VIAL IVP ONE (17:47)
[2019-02-28] MEDS ORDERED: VERAPAMIL SYRINGE (5 MG/10 ML) INTRAARTER ONE (17:49)
[2019-02-28] MEDS ORDERED: RX INFO: IV CONTRAST WAS GIVEN 1 EACH MISC MISCELLANE PRN (18:13)
--- NOTE | 2019-02-28 18:23 | P.CARDCATH ---
Date of Procedure: 02/28/19 Preoperative Diagnosis: Unstable angina and positive stress test Postoperative Diagnosis: Stable coronary artery disease with critical lesion involving the PLV branch and also small branch of the PDA and mild to moderate disease in circumflex and origin of the diagonal. Procedure(s) Performed: Left heart catheterization without left ventriculography Description of Procedure: HISTORY: This is a 53-year-old gentleman with history of ischemic heart disease with multiple stents in the RCA and also stent placement of the mid LAD who was admitted to the hospital with complaints of chest pain. Patient had a nuclear stress test which showed possible reversible ischemia of small size, involving the inferior wall. In view of previous stent placement and chest pains, patient is advised to have a cardiac catheterization for definitive diagnosis CONSENT:I have discussed the risks, benefits and alternative therapies for the above-mentioned procedure and for both sedation/analgesia as well as necessary blood product administration, if indicated, as they pertain to this patient. The patient has indicated understanding and acceptance of the risks and procedures discussed. [] PROCEDURE: Patient was brought to the lab in a fasting state. Patient was given some IV sedation. The right groin is infiltrated with lidocaine and right femoral artery was entered using Seldinger technique. A 6-Citizen Of [place] catheter was left in place and selective coronary arteriography was performed. Patient tolerated the procedure well. TR band was applied for hemostasis. No immediate complications were noted and patient was transferred to [facility] in a stable condition Conscious Sedation: Versed 1mg Fentanyl 50 g Duration 25minutes HEMODYNAMICS: The aortic pressure is about 130/70. End-diastolic pressure is about 12-15. No gradient across the aortic valve SELECTIVE CORONARY ARTERIOGRAPHY: LEFT MAIN: This is a large in caliber with mild disease without any critical lesions and calcified THE LEFT ANTERIOR DESCENDING CORONARY ARTERY: This is a good caliber vessel with calcification in the proximal and midportion. There appears to be plaque in the origin of the diagonal and probably involving the ostium of the diagonal. The plaque is stable compared to the previous cardiac catheterization. This stented mid LAD is patent THE LEFT CIRCUMFLEX AND IS CORONARY ARTERY: Fair caliber vessel giving a moderate caliber OM branch. There is mild disease in the proximal and mid sections of the OM branch THE RIGHT CORONARY ARTERY:. This is a huge caliber vessel giving rise to PDA and PLV branches. This tends in the distal and mid LAD, a patent. There is critical lesion involving the ostium of the PLV and also one of the branch of the PDA which are stable compared to the previous studies LEFT VENTRICULOGRAPHY: Not performed FINAL IMPRESSION: Stable coronary artery disease. Films reviewed with Dr. Ac PLAN: Continuation maximal medical therapy PROGNOSIS:. Guarded
[2019-02-28] MEDS ORDERED: IOPAMIDOL-370 125ML BTL INJ ONE (18:25)
[2019-02-28] MEDS ORDERED: ISOSORBIDE MONONITRATE ER 30 MG TAB.ER.24H PO ONE (19:30)
[2019-02-28] MEDS ORDERED: ATORVASTATIN 80 MG TAB PO SCH (21:00)
[2019-03-01] MEDS: SODIUM CHLORIDE 0.9% 1,000 ML IV SCH ×2 (00:19→01:02)
[2019-03-01 06:15] LABS: African American GFR (CKD) >90 (>60 ml/min/1.73 sqM); Anion Gap 8 mmol/L; Blood Urea Nitrogen 14 mg/dL (9-20); Carbon Dioxide 26 mmol/L (22-30); Chloride 106 mmol/L (98-107); Glucose 111 mg/dL (74-99); Potassium 3.9 mmol/L (3.5-5.1); Sodium 140 mmol/L (137-145)
[2019-03-01] MEDS: METOPROLOL TARTRATE 12.5 MG TAB PO SCH (08:25)
[2019-03-01] MEDS: FERROUS SULFATE 325 MG TAB PO SCH (08:26)
[2019-03-01] MEDS: ASPIRIN 81 MG PO SCH (08:26)
[2019-03-01] MEDS: CLOPIDOGREL 75 MG TAB PO SCH (08:26)
[2019-03-01] MEDS: MULTIVITAMINS, THERA 1 EACH TAB PO SCH (08:26)
[2019-03-01] MEDS ORDERED: ISOSORBIDE MONONITRATE ER 60 MG TAB.ER.24H PO SCH (09:00)
--- NOTE | 2019-03-01 09:02 | EST ---
EXERCISE STRESS AGE: 53 SEX: M HT: 5'11" WT: 243 lbs. PROTOCOL: Cardiolite Stress Test DURATION OF EXERCISE: 11:00 HEART RATE REST: 56 BLOOD PRESSURE REST: 131/85 MAXIMUM HEART RATE ACHIEVED: 153 MAXIMUM BLOOD PRESSURE: 174/65 85% MPHR: 140 100% MPHR: 165 METS: 12.1 INDICATIONS: Chest pain. CLINICAL INFORMATION: Baseline rhythm is a sinus mechanism, rate of 56, normal axis and intervals, normal echocardiogram. Baseline blood pressure 131/85 mmHg. Patient exercised on Oscar protocol for 11 minutes reaching peak rate of 153 beats per minute which is equal to 93% maximum predicted heart rate. Peak blood pressure 174/65 mmHg. Test was terminated secondary to fatigue. There was no chest pain. Electrocardiograph monitoring revealed no evidence of diagnostic ischemic ST deviation. Cardiolite was injected at peak exercise. CONCLUSION: 1. Good exercise tolerance with normal electrocardiographic response to exercise. 2. Nuclear images will be reported separately. MMODL / IJN: [id number] /
--- NOTE | 2019-03-01 10:31 | P.PN ---
Subjective This is a pleasant 53-year-old male past medical history significant for coronary artery disease status post multiple stent placements, hypertension, dyslipidemia and prostate cancer status post robotic prostatectomy with bilateral pelvic lymphadenectomy. He follows in the office with Dr. Gaytan. He underwent cardiac catheterization yesterday via the right radial artery revealing left main large caliber with mild disease and no critical lesions, LAD calcification in the proximal and midportion, plaque in the origin of the diagonal and probably involving the ostium of the diagonal, the plaque is stable compared to previous catheterization, stented mid LAD is patent, circumflex with mild disease in the proximal and midsections of the OM branch, RCA with a critical lesion involving the ostium of the PLV and also one of the branches of the PDA which is stable compared to previous studies. Films reviewed by Dr. Calvo. Imdur increased to 60 mg daily. He is seen and examined sitting up in bed in no acute distress. He denies any further symptoms of chest pain since admission. Breathing is stable. Blood pressure 99/60 heart rate 56. Currently maintained on aspirin 81 mg daily, atorvastatin 80 mg daily, Plavix 75 mg daily, Imdur 60 mg daily, Lopressor 12.5 mg in the morning. GENERAL: This is a 53-year-old male in no apparent distress at the time of my examination. HEENT: Head is atraumatic, normocephalic. Pupils are equal, round. Sclerae anicteric. Conjunctivae are clear. Mucous membranes of the mouth are moist. Neck is supple. There is no jugular venous distention. No carotid bruit is heard. LUNGS: Clear to auscultation no wheezes, rales or rhonchi. No chest wall tenderness is noted on palpation or with deep breathing. HEART: Regular rate and rhythm without murmurs, rubs or gallops. S1 and S2 heard . EXTREMITIES: No evidence of peripheral edema and no calf tenderness noted. Right wrist access site clean, dry and intact with a strong pulse, no evidence of bleeding, hematoma or ecchymosis. ASSESSMENT Chest pain, atypical for angina. History of coronary artery disease Hypertension Dyslipidemia History of prostate cancer status post prostatectomy PLAN Stable for discharge from a cardiac perspective on current medical regimen. Follow-up with Dr. Gaytan in the office in one week. Patient's believes they just refilled Imdur and they will just take 2 of 30 mg tablets daily. Nurse Practitioner note has been reviewed, I agree with a documented findings and plan of care. Patient was seen and examined. Objective - Vital Signs Vital signs: Vital Signs Temp 97.6 F 03/01/19 07:40 Pulse 56 L 03/01/19 07:40 Resp 16 03/01/19 07:40 BP 99/60 03/01/19 07:40 Pulse Ox 98 03/01/19 07:40 Intake & Output 02/28/19 03/01/19 03/01/19 18:59 06:59 18:59 Intake Total 100 Output Total 600 Balance 100 -600 Weight 110.223 kg Intake: IV 100 Output: Urine 600 Other: Voiding Method Toilet Toilet Toilet # Voids 1 1 - Labs CBC & Chem 7: 02/27/19 22:21 03/01/19 05:29 Labs: Abnormal Lab Results - Last 24 Hours (Table) 03/01/19 Range/Units 05:29 Glucose 111 H (74-99) mg/dL
[2019-03-01 11:39] VITALS: BP 106/64; PULSE 58; RESP 18; TEMP 97.8
--- NOTE | 2019-03-01 12:14 | P.DS ---
Providers Date of admission: 02/27/19 23:47 Expected date of discharge: 03/01/19 Attending physician: Mitchell Wharton Consults: 02/27/19 23:42 Consult Physician Routine Consulting Provider: Andre Gaytan Consult Reason/Comments: chest pain Do you want consulting provider notified?: Yes Primary care physician: Mitchell Wharton Hospital Course: 53-year-old male presented the emergency room with complaints of chest pain that lasted for for 7 hours. 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 Mitchell Wharton Follow-up with cardiology Patient Condition at Discharge: Good Plan - Discharge Summary Discharge Rx Participant: No New Discharge Prescriptions: No Action Aspirin 81 mg PO DAILY Multivitamins, Thera [Multivitamin (formulary)] 1 tab PO DAILY Ferrous Sulfate [Iron (65 MG Elemental)] 325 mg PO DAILY Metoprolol Tartrate [Lopressor] 12.5 mg PO QAM Isosorbide Mononitrate ER [Imdur] 30 mg PO QAM Clopidogrel [Plavix] 75 mg PO QAM Atorvastatin Calcium [Lipitor] 80 mg PO HS Discharge Medication List Aspirin 81 mg PO DAILY 10/22/15 [History] Ferrous Sulfate [Iron (65 MG Elemental)] 325 mg PO DAILY 09/17/16 [History] Multivitamins, Thera [Multivitamin (formulary)] 1 tab PO DAILY 09/17/16 [History] Clopidogrel [Plavix] 75 mg PO QAM 08/12/18 [History] Isosorbide Mononitrate ER [Imdur] 30 mg PO QAM 08/12/18 [History] Metoprolol Tartrate [Lopressor] 12.5 mg PO QAM 08/12/18 [History] Atorvastatin Calcium [Lipitor] 80 mg PO HS 02/27/19 [History] Follow up Appointment(s)/Referral(s): Mitchell Wharton MD [Primary Care Provider] - 1-2 days Patient Instructions/Handouts: Chest Pain (ED)
--- NOTE | 2019-03-01 13:01 | ECHOF ---
Referral Reason:cp MEASUREMENTS -------- HEIGHT: 182.9 cm WEIGHT: 110.2 kg BP: 115/71 RVIDd: 3.4 cm (< 3.3) IVSd: 1.3 cm (0.6 - 1.1) LVIDd: 5.1 cm (3.9 - 5.3) LVPWd: 1.3 cm (0.6 - 1.1) IVSs: 1.3 cm LVIDs: 4.1 cm LVPWs: 1.4 cm LA Diam: 3.8 cm (2.7 - 3.8) LAESV Index (A-L): 26.46 ml/m Ao Diam: 3.5 cm (2.0 - 3.7) AV Cusp: 1.4 cm (1.5 - 2.6) LA Diam: 4.2 cm (2.7 - 3.8) MV EXCURSION: 15.618 mm (> 18.000) MV EF SLOPE: 75 mm/s (70 - 150) EPSS: 0.9 cm MV E Derrick: 0.56 m/s MV DecT: 142 ms MV A Derrick: 0.50 m/s MV E/A Ratio: 1.12 RAP: 5.00 mmHg RVSP: 11.33 mmHg FINDINGS -------- Sinus rhythm. This was a technically adequate study. The left ventricular size is normal. There is mild concentric left ventricular hypertrophy. Overa ll left ventricular systolic function is normal with, an EF between 55 - 60 %. The right ventricle is normal in size. The left atrial size is normal. Normal LA size by volume 22+/-6 ml/m2. The right atrial size is normal. IAS not well Visualized. The aortic valve is trileaflet, and appears structurally normal. No aortic stenosis or regurgitation. Mild mitral regurgitation is present. Mild tricuspid regurgitation present. There is no evidence of pulmonary hypertension. The right v entricular systolic pressure, as measured by Doppler, is 11.33mmHg. There is no pulmonic regurgitation present. The aortic root size is normal. There is no pericardial effusion. CONCLUSIONS -------- 1. Sinus rhythm. 2. This was a technically adequate study. 3. The left ventricular size is normal. 4. There is mild concentric left ventricular hypertrophy. 5. Overall left ventricular systolic function is normal with, an EF between 55 - 60 %. 6. The right ventricle is normal in size. 7. The left atrial size is normal. 8. Normal LA size by volume 22+/-6 ml/m2. 9. The right atrial size is normal. 10. IAS not well Visualized. 11. The aortic valve is trileaflet, and appears structurally normal. No aortic stenosis or regurgitat ion. 12. Mild mitral regurgitation is present. 13. Mild tricuspid regurgitation present. 14. There is no evidence of pulmonary hypertension. 15. The right ventricular systolic pressure, as measured by Doppler, is 11.33mmHg. 16. There is no pulmonic regurgitation present. 17. The aortic root size is normal. 18. There is no pericardial effusion. GLOVE [employer] CUTTER: Wendy Dodge RDCS
== END 2019-03-01 12:50 | disposition home or self-care (01) ==
LOC: EC 22:03 → 1SOBS 23:47
PROVIDERS: ADMIT Family Medicine; ATTEND Family Medicine
DX: R07.89 Other chest pain (principal); R94.39 Abnormal result of other cardiovascular function study; I25.10 Atherosclerotic heart disease of native coronary artery without angina pectoris; I08.1 Rheumatic disorders of both mitral and tricuspid valves; I10 Essential (primary) hypertension; E78.00 Pure hypercholesterolemia, unspecified; E78.5 Hyperlipidemia, unspecified; E66.9 Obesity, unspecified; Z68.33 Body mass index [BMI] 33.0-33.9, adult; Z79.82 Long term (current) use of aspirin; Z79.899 Other long term (current) drug therapy; Z79.02 Long term (current) use of antithrombotics/antiplatelets; Z88.5 Allergy status to narcotic agent; Z87.442 Personal history of urinary calculi; Z85.46 Personal history of malignant neoplasm of prostate; Z90.79 Acquired absence of other genital organ(s); Z95.5 Presence of coronary angioplasty implant and graft; Z83.3 Family history of diabetes mellitus; Z82.49 Family history of ischemic heart disease and other diseases of the circulatory system; Z80.3 Family history of malignant neoplasm of breast; Z83.79 Family history of other diseases of the digestive system
CPT/HCPCS: 99152; 99153; 99285; 36415; 93005; 93017; 93306; 93458; 85379; 83880; 80061; 80053; 80048; 82150; 83690; 83735; 84484 ×2; 85025; 85610; 85730; 71046; 78452; G0378 ×3; C1769 ×3; C1894; A9500; J2001; J3010; Q9967; J2250

== ENCOUNTER → 2019-05-31 | Outpatient (CLI) | payer OTHER ==
[2019-05-31 11:45] LABS: Albumin 4.6 g/dL (3.80-4.90); Albumin/Globulin Ratio 2.3 (1.60-3.17); Bilirubin, Conjugated 0.2 mg/dL (0.20-0.40); Bilirubin,Unconjugated 0.3 mg/dL; Chol/HDL Ratio 2.85; LDL Cholesterol,Calculated 62.4 mg/dL (0.0-131.0); Total Bilirubin 0.5 mg/dL (0.2-1.2); Total Protein 6.6 g/dL (6.2-8.2); VLDL Calculation 24.6 mg/dL (5.00-40.00)
== END | disposition home or self-care (01) ==
LOC: LABWHC1 06:33
PROVIDERS: ATTEND Internal Medicine Cardiovascular Disease
DX: C61 Malignant neoplasm of prostate (principal); E78.5 Hyperlipidemia, unspecified; I25.10 Atherosclerotic heart disease of native coronary artery without angina pectoris
CPT/HCPCS: 36415; 80061; 80076; 84153

== ENCOUNTER → 2019-06-07 | Outpatient (CLI) | payer OTHER ==
--- NOTE | 2019-06-07 20:39 | PN ---
PROGRESS NOTE This is a 53-year-old male patient coming in for an annual check regarding obstructive sleep apnea. The patient has a history of MARIAMA and the patient has undergone prostatectomy for a recent diagnosis of prostate cancer. The patient was also found to have coronary artery disease and has undergone cardiac catheterization and coronary stenting; this was identified in the preoperative evaluation for prostate surgery. In terms of his sleep apnea, the patient remains on CPAP therapy and he is extremely compliant. He is utilizing CPAP at a pressure of 10 cm of water. He is utilizing his CPAP every night. He is averaging around 8.3 hours of CPAP use per night. His CPAP use for more than 4 hours is 100%. Leak is 19 L/minute and his AHI is down to 1.4, indicating excellent treatment. No snoring while on CPAP therapy. No other major respiratory difficulties for now. His [place] score is only 6. PHYSICAL EXAMINATION: CURRENT VITAL SIGNS: Blood pressure 153/82, pulse 86, respirations 16, temperature 98.5, saturation 94% on room air. Height is 5 feet 11 inches, weight 263, and BMI 36.6. GENERAL APPEARANCE: Calm, comfortable. HEAD: Atraumatic, normocephalic. NECK: Supple. No JVD. No goiter or neck masses. LUNGS: Clear to auscultation. HEART: Heart sounds are regular rate and rhythm. Normal S1, S2. No S3, S4. No murmurs. ABDOMEN: Soft, nontender. No organomegaly. EXTREMITIES: No edema. No cyanosis or clubbing. NEUROLOGIC: Awake and alert. No focal neurological deficits. PSYCHIATRIC: Negative for anxiety or depression. IMPRESSION: 1. Obstructive sleep apnea, well treated with a CPAP pressure of 10 cm of water. The patient continues to demonstrate excellent clinical response and compliance. 2. Coronary artery disease with recent coronary intervention and stenting. 3. Prostate cancer with recent prostatectomy. 4. Obesity with interval weight gain on the order of 9 pounds. BMI is up to 36.6. PLAN: 1. Encourage weight loss. 2. Implement good sleep hygiene measures. 3. Continue CPAP therapy at a pressure of 10. 4. Offer AirFit N20 nose mask, medium size, as an alternative for the AirFit P10 nose pillow. 5. See me back in a year's time in followup, earlier if needed. His treatment remains successful. His machine is functional. Refills on the humidification chamber and tubing were given. MMODL / IJN: [id number] /
== END | disposition home or self-care (01) ==
LOC: SLEEP 16:06
PROVIDERS: ATTEND Internal Medicine Critical Care Medicine
DX: G47.33 Obstructive sleep apnea (adult) (pediatric) (principal); I25.10 Atherosclerotic heart disease of native coronary artery without angina pectoris; E66.9 Obesity, unspecified; Z99.89 Dependence on other enabling machines and devices; Z95.5 Presence of coronary angioplasty implant and graft; Z68.36 Body mass index [BMI] 36.0-36.9, adult; Z90.79 Acquired absence of other genital organ(s)

== ENCOUNTER → 2019-12-05 | Outpatient (CLI) | payer OTHER | END | disposition home or self-care (01) | LOC: LABWHC1 07:08 | PROVIDERS: ATTEND Urology | DX: C61 Malignant neoplasm of prostate (principal) | CPT/HCPCS: 36415; 84153 ==

== ENCOUNTER 2019-12-25 10:27 | Emergency (ER) | payer OTHER ==
[2019-12-25] MEDS ORDERED: ONDANSETRON 4 MG/2 ML VIAL IVP STA (11:47)
[2019-12-25] MEDS ORDERED: KETOROLAC 30 MG/ML 1 ML VIAL IVP STA (11:47)
[2019-12-25] MEDS ORDERED: SODIUM CHLORIDE 0.9% 500 ML 500 ML IV ONE (11:47)
[2019-12-25] MEDS ORDERED: SODIUM CHLORIDE 0.9% 1,000 ML IV SCH (12:00)
[2019-12-25 12:21] LABS: Basophils % (A) 0 %; Eosinophils # (A) 0.1 k/uL (0-0.7); Eosinophils % (A) 1 %; HCT 41.7 % (39.0-53.0); Lymphocytes # (A) 1.3 k/uL (1.0-4.8); Lymphocytes % (A) 16 %; MCH 29.4 pg (25.0-35.0); MCHC 33.6 g/dL (31.0-37.0); MCV 87.4 fL (80.0-100.0); Mean Platelet Volume 7.8; Monocytes # (A) 0.4 k/uL (0-1.0); Monocytes % (A) 5 %; Neutrophils # (A) 6.2 k/uL (1.3-7.7); Neutrophils % (A) 77 %; Platelet Count 250 k/uL (150-450); RBC 4.78 m/uL (4.30-5.90); RDW 12.8 % (11.5-15.5)
[2019-12-25 12:26] LABS: Albumin 4.4 g/dL (3.5-5.0); Calcium 9.8 mg/dL (8.4-10.2); Potassium 4.5 mmol/L (3.5-5.1); Total Bilirubin 0.7 mg/dL (0.2-1.3); Total Protein 7.1 g/dL (6.3-8.2)
[2019-12-25 12:36] LABS: Appearance,Urine Clear (Clear); Bilirubin,Urine Negative (Negative); Blood,Urine Moderate (Negative); Color,Urine Yellow; Glucose,Urine (UA) Negative (Negative); Hyaline Casts,Urine 5 /lpf (0-2); Ketones,Urine Negative (Negative); Leukocyte Esterase,Urine Negative (Negative); Mucus,Urine Few /hpf; Nitrite,Urine Negative (Negative); Protein,Urine Negative (Negative); RBC,Urine 100 /hpf (0-5); Specific Gravity,Urine 1.027 (1.001-1.035); Urobilinogen,Urine <2.0 mg/dL (<2.0); WBC,Urine 2 /hpf (0-5)
--- NOTE | 2019-12-25 12:43 | US ---
EXAMINATION TYPE: US scrotum with doppler. Grayscale and color Doppler Duplex imaging performed of t he scrotum. DATE OF EXAM: 12/25/2019 COMPARISON: NONE CLINICAL HISTORY: scrotal pain right. pain EXAM MEASUREMENTS: TESTICLES: Right Testicle: 5.5 x 2.1 x 2.6 cm Left Testicle: 4.6 x 2.6 x 2.8 cm EPIDIDYMIS HEAD: Right Epididymis: .9 x 1.2 x 1.1 cm .5 cm cyst visualized. Left Epididymis: Not well visualized Doppler performed to assess for testicular vascularity; good bilateral color flow and waveforms are s een. There is no evidence of testicular torsion. Presence of hydroceles: Yes right side Presence of varicoceles: no IMPRESSION: 1. INTRINSICALLY NORMAL TESTICLES. 2. RIGHT EPIDIDYMAL CYST. 3. SMALL HYDROCELE, RIGHT SCROTUM.
--- NOTE | 2019-12-25 13:09 | CT ---
EXAMINATION TYPE: CT abdomen pelvis wo con DATE OF EXAM: 12/25/2019 COMPARISON: None. HISTORY: Testicle pain CT DLP: 1052.2 mGycm Automated exposure control for dose reduction was used. FINDINGS: There is minimal dependent atelectasis at the lung bases. There is no pleural or pericardia l fluid. The heart is not enlarged. There is dense calcification of the coronary arteries but only mi ld atheromatous calcification elsewhere on this study. There is no pleural or pericardial fluid. There is a small hiatal hernia. Within the abdomen, the liver is mildly prominent measuring 18 cm. The spleen and gallbladder appear normal. Both adrenal glands appear normal. There is a 2 3 mm calcification in the anterior pole calyx of the right kidney. There is a second 5 m m calculus in the anterior lower pole calyx of the right kidney. There is no hydronephrosis. There is hydronephrosis and hydroureter on the left. There is a 4.3 mm calculus at the left UVJ. The pancreas is unremarkable. There is no significant retroperitoneal, iliac or inguinal adenopathy. There are scattered diverticula within the sigmoid colon and scattered along the left side of the col on without radiographic evidence of diverticulitis. The appendix is not visualized with certainty. Small bowel loops are normal in caliber. There is no free fluid and no free air identified. There is mild hypertrophic spondylosis within the dorsal spine and there is mild facet arthropathy in the lower lumbar spine. IMPRESSION: 1. 4.3 MM PARTIALLY OBSTRUCTING CALCULUS IN THE DISTAL LEFT URETER. 2. NONOBSTRUCTING NEPHROLITHIASIS ON THE RIGHT. 3. EXTENSIVE CORONARY ARTERY CALCIFICATION. 4. SMALL HIATAL HERNIA. 5. MILD HEPATOMEGALY. 6. UNCOMPLICATED DIVERTICULOSIS OF THE SIGMOID COLON. 7. DEGENERATIVE CHANGES WITHIN THE SPINE.
--- NOTE | 2019-12-25 13:16 | ED ---
Male Urogenital HPI - General Chief complaint: Urogenital Stated complaint: testical pain Time Seen by Provider: 12/25/19 11:32 Source: patient Mode of arrival: ambulatory Limitations: no limitations - History of Present Illness Initial comments: 54-year-old male presenting today for chief complaint of left sided abdominal and testicular pain. Patient states that his testicle has pain shooting from the abdomen into it. He states that he does not pain to palpation or direct testicular pain. He states that he feels like he is having some dysuria. Patient has history of kidney stones. denies fever, chills. Patient denies any scrotal swelling. Denies penile pain or discharge. Patient denies chest pain ro SOB. Denies noting hematuria. No additional complaints. - Related Data Home Medications Medication Instructions Recorded Confirmed Aspirin 81 mg PO DAILY 10/22/15 02/27/19 Ferrous Sulfate [Iron (65 MG 325 mg PO DAILY 09/17/16 02/27/19 Elemental)] Multivitamins, Thera [Multivitamin 1 tab PO DAILY 09/17/16 02/27/19 (formulary)] Clopidogrel [Plavix] 75 mg PO QAM 08/12/18 02/27/19 Metoprolol Tartrate [Lopressor] 12.5 mg PO QAM 08/12/18 02/27/19 Atorvastatin Calcium [Lipitor] 80 mg PO HS 02/27/19 02/27/19 Previous Rx's Medication Instructions Recorded Isosorbide Mononitrate ER [Imdur] 60 mg PO QAM #30 tab.er.24h 03/01/19 Ketorolac [Toradol] 10 mg PO Q8H PRN 3 Days #9 tab 12/25/19 Ketorolac [Toradol] 10 mg PO Q8HR PRN 3 Days #9 tab 12/25/19 Tamsulosin HCl [Flomax] 0.4 mg PO DAILY 3 Days #3 capsule 12/25/19 Tamsulosin [Flomax] 0.4 mg PO DAILY #7 cap 12/25/19 Allergies Allergy/AdvReac Type Severity Reaction Status Date / Time oxycodone HCl [From Percocet] AdvReac VOMITING, Verified 12/25/19 11:08 HOT FLASHES, ROOM SPINNING Review of Systems ROS Statement: Those systems with pertinent positive or pertinent negative responses have been documented in the HPI. ROS Other: All systems not noted in ROS Statement are negative. Past Medical History Past Medical History: Chest Pain / Angina, Hyperlipidemia Additional Past Medical History / Comment(s): slightly high cholestrol watching diet and taking fish oil, kidney stones in the past History of Any Multi-Drug Resistant Organisms: None Reported Past Surgical History: Appendectomy, Heart Catheterization With Stent, Prostate Surgery Additional Past Surgical History / Comment(s): colonoscopy negative Past Anesthesia/Blood Transfusion Reactions: No Reported Reaction Additional Past Anesthesia/Blood Transfusion Reaction / Comment(s): no hx of surgeries Date of Last Stent Placement:: 06/25/2018 Past Psychological History: No Psychological Hx Reported Past Alcohol Use History: None Reported Past Drug Use History: None Reported - Past Family History Father Family Medical History: Congestive Heart Failure (CHF), Diabetes Mellitus, Myocardial Infarction ([place]) Additional Family Medical History / Comment(s): CABG, coronary ablation, coronary stentskidney and liver failure - passed at 72 Mother Family Medical History: Cancer Additional Family Medical History / Comment(s): breast cancer General Exam - General Exam Comments Initial Comments: General: The patient is awake and alert, in no distress, and does not appear acutely ill. Eye: Pupils are equal, round and reactive to light, extra-ocular movements are intact. No nystagmus. There is normal conjunctiva bilaterally. No signs of icterus. Cardiovascular: There is a regular rate and rhythm. No murmur, rub or gallop is appreciated. Respiratory: Lungs are clear to auscultation, respirations are non-labored, breath sounds are equal. No wheezes, stridor, rales, or rhonchi. Gastrointestinal: Soft, non-distended, non-tender abdomen without masses or organomegaly noted. There is no rebound or guarding present. No CVA tenderness. Musculoskeletal: Normal ROM, no tenderness. Strength 5/5. Sensation intact. Pulses equal bilaterally 2+. Neurological: A&O x 3. CN II-XII intact grossly, There are no obvious motor or sensory deficits. Coordination appears grossly intact. Speech is normal. Skin: Skin is warm and dry and no rashes or lesions are noted. Psychiatric: Cooperative, appropriate mood & affect, normal judgment. Limitations: no limitations Course Vital Signs 12/25/19 12/25/19 11:06 13:51 Temperature 98.3 F 97.8 F Pulse Rate 68 58 L Respiratory 16 18 Rate Blood Pressure 160/88 141/90 O2 Sat by Pulse 95 95 Oximetry Medical Decision Making - Medical Decision Making 54yo male presenting for cc of left sided groin/abdomen/flank pain. With testicular pain. No pain to palpation on exam of the testicle there is normal cremasteric reflexes and vertical lie of the testicle with normal coloration. Patient US no significant abnormality of scrotum or testicles. Patient UA concerning for stone. CT revealed partially obstructing stone, I suspect that the testicular pain was referred. Patient oes not appear toxic. No signs of UTI. Patient pain controlled in ER. He will be discharged wtih return for fevers, chills or worsening pain. He is to f/u with urology. Patient is agreeable to care plan discharge. Dr. lagos agreeable to care plan and discharge. - Lab Data Result diagrams: 12/25/19 12:04 12/25/19 12:04 Lab Results 12/25/19 12/25/19 12/25/19 Range/Units 12:04 12:04 12:04 WBC 8.0 (3.8-10.6) k/uL RBC 4.78 (4.30-5.90) m/uL Hgb 14.0 (13.0-17.5) gm/dL Hct 41.7 (39.0-53.0) % MCV 87.4 (80.0-100.0) fL MCH 29.4 (25.0-35.0) pg MCHC 33.6 (31.0-37.0) g/dL RDW 12.8 (11.5-15.5) % Plt Count 250 (150-450) k/uL Neutrophils % 77 % Lymphocytes % 16 % Monocytes % 5 % Eosinophils % 1 % Basophils % 0 % Neutrophils # 6.2 (1.3-7.7) k/uL Lymphocytes # 1.3 (1.0-4.8) k/uL Monocytes # 0.4 (0-1.0) k/uL Eosinophils # 0.1 (0-0.7) k/uL Basophils # 0.0 (0-0.2) k/uL Sodium 139 (137-145) mmol/L Potassium 4.5 (3.5-5.1) mmol/L Chloride 107 (98-107) mmol/L Carbon Dioxide 24 (22-30) mmol/L Anion Gap 8 mmol/L BUN 16 (9-20) mg/dL Creatinine 1.16 (0.66-1.25) mg/dL Est GFR (CKD-EPI)AfAm 82 (>60 ml/min/1.73 sqM) Est GFR (CKD-EPI)NonAf 71 (>60 ml/min/1.73 sqM) Glucose 142 H (74-99) mg/dL Calcium 9.8 (8.4-10.2) mg/dL Total Bilirubin 0.7 (0.2-1.3) mg/dL AST 34 (17-59) U/L ALT 34 (4-49) U/L Alkaline Phosphatase 60 (38-126) U/L Total Protein 7.1 (6.3-8.2) g/dL Albumin 4.4 (3.5-5.0) g/dL Urine Color Yellow Urine Appearance Clear (Clear) Urine pH 5.0 (5.0-8.0) Ur Specific [place] 1.027 (1.001-1.035) Urine Protein Negative (Negative) Urine Glucose (UA) Negative (Negative) Urine Ketones Negative (Negative) Urine Blood Moderate H (Negative) Urine Nitrite Negative (Negative) Urine Bilirubin Negative (Negative) Urine Urobilinogen <2.0 (<2.0) mg/dL Ur Leukocyte Esterase Negative (Negative) Urine RBC 100 H (0-5) /hpf Urine WBC 2 (0-5) /hpf Hyaline Casts 5 H (0-2) /lpf Urine Mucus Few H (None) /hpf Disposition Clinical Impression: Coronary artery calcification, Urethral calculus, Left flank pain, Left testicular pain, Hematuria Disposition: HOME SELF-CARE Condition: Good Instructions (If sedation given, give patient instructions): Kidney Stones (ED) Additional Instructions: Please use medication as discussed. Please follow-up with urology in the next 2 days. recommend cardiology evaluation for coronary artery calcifications-return to ER if experience chest pain. Please return to emergency room if the symptoms increase or worsen or for any other concerns. Prescriptions: Tamsulosin HCl [Flomax] 0.4 mg PO DAILY 3 Days #3 capsule Tamsulosin [Flomax] 0.4 mg PO DAILY #7 cap Ketorolac [Toradol] 10 mg PO Q8H PRN 3 Days #9 tab PRN Reason: Severe Pain Ketorolac [Toradol] 10 mg PO Q8HR PRN 3 Days #9 tab PRN Reason: Pain Is patient prescribed a controlled substance at d/c from ED?: No Referrals: Mitchell Wharton MD [Primary Care Provider] - 1-2 days Brian Kraus MD [STAFF PHYSICIAN] - 1-2 days Time of Disposition: 13:13
[2019-12-25 13:53] VITALS: BP 141/90; PULSE 58; RESP 18; TEMP 97.8
== END 2019-12-25 13:55 | disposition home or self-care (01) ==
LOC: EC 10:27
DX: N21.1 Calculus in urethra (principal); I25.10 Atherosclerotic heart disease of native coronary artery without angina pectoris; N50.819 Testicular pain, unspecified; I25.2 Old myocardial infarction; E78.5 Hyperlipidemia, unspecified; Z79.82 Long term (current) use of aspirin; Z79.02 Long term (current) use of antithrombotics/antiplatelets; Z79.899 Other long term (current) drug therapy; Z87.442 Personal history of urinary calculi; Z88.5 Allergy status to narcotic agent; Z95.5 Presence of coronary angioplasty implant and graft; Z98.890 Other specified postprocedural states
CPT/HCPCS: 36415; 80053; 85025; 81001; 93975; 76870; 74176; 99284; 96374; 96375; 96361 ×2; J2405; J1885

== ENCOUNTER → 2019-12-29 | Outpatient (CLI) | payer OTHER ==
--- NOTE | 2019-12-29 15:26 | XR ---
EXAMINATION TYPE: XR KUB DATE OF EXAM: 12/29/2019 10:44 AM CLINICAL HISTORY: Ureteral stone TECHNIQUE: Supine images of the abdomen and pelvis were obtained COMPARISON: CT abdomen pelvis 12/25/2019. FINDINGS: Scattered gas is seen in non-distended small bowel loops. Gas and fecal material is seen in non-distended colon. There is no visceromegaly, pneumoperitoneum. 4 mm calcification over the left h emipelvis correlates with stone at the left ureteropelvic junction seen on 12/25/2019 CT comparison. A dditional pelvic phleboliths are seen. The renal shadows are here due to overlying fecal debris. The osseous structures are intact. IMPRESSION: 4 mm calcification over the left pelvis correlates with left ureteropelvic stone seen on 12/25/2019 CT comparison.
== END | disposition home or self-care (01) ==
LOC: RADXRMAIN 10:32
PROVIDERS: ATTEND Urology
DX: N20.1 Calculus of ureter (principal)
CPT/HCPCS: 74018

== ENCOUNTER → 2020-03-13 | Outpatient (CLI) | payer OTHER ==
[2020-03-13 11:13] LABS: Chol/HDL Ratio 2.84; LDL Cholesterol,Calculated 53.8 mg/dL (0.0-131.0); VLDL Calculation 14.2 mg/dL (5.00-40.00)
== END | disposition home or self-care (01) ==
LOC: LABWHC1 07:23
PROVIDERS: ATTEND Internal Medicine Cardiovascular Disease
DX: E78.2 Mixed hyperlipidemia (principal)
CPT/HCPCS: 36415; 80061; 82550; 84450; 84460

== ENCOUNTER → 2020-04-11 | Outpatient (CLI) | payer OTHER ==
[2020-04-11 08:00] LABS: Basophils % (A) 0 %; Eosinophils # (A) 0.1 k/uL (0-0.7); Eosinophils % (A) 2 %; HCT 42.3 % (39.0-53.0); HGB 13.8 gm/dL (13.0-17.5); Lymphocytes # (A) 1.5 k/uL (1.0-4.8); Lymphocytes % (A) 22 %; MCH 28.5 pg (25.0-35.0); MCHC 32.6 g/dL (31.0-37.0); MCV 87.5 fL (80.0-100.0); Mean Platelet Volume 7.5; Monocytes # (A) 0.3 k/uL (0-1.0); Monocytes % (A) 4 %; Neutrophils # (A) 4.7 k/uL (1.3-7.7); Neutrophils % (A) 71 %; Platelet Count 267 k/uL (150-450); RBC 4.83 m/uL (4.30-5.90); RDW 12.9 % (11.5-15.5); WBC 6.7 k/uL (3.8-10.6)
[2020-04-11 08:08] LABS: African American GFR (CKD) >90 (>60 ml/min/1.73 sqM); Anion Gap 5 mmol/L; Blood Urea Nitrogen 19 mg/dL (9-20); Calcium 9.3 mg/dL (8.4-10.2); Carbon Dioxide 29 mmol/L (22-30); Chloride 105 mmol/L (98-107); Glucose 161 mg/dL (74-99); Non-African American GFR(CKD) >90 (>60 ml/min/1.73 sqM); Potassium 4.4 mmol/L (3.5-5.1); Sodium 139 mmol/L (137-145)
[2020-04-11 09:01] LABS: Appearance,Urine Clear (Clear); Bilirubin,Urine Negative (Negative); Blood,Urine Negative (Negative); Color,Urine Yellow; Glucose,Urine (UA) Negative (Negative); Ketones,Urine Negative (Negative); Leukocyte Esterase,Urine Negative (Negative); Nitrite,Urine Negative (Negative); PH, Urine 5.5 (5.0-8.0); Protein,Urine Negative (Negative); Specific Gravity,Urine 1.023 (1.001-1.035); Urobilinogen,Urine <2.0 mg/dL (<2.0)
== END | disposition home or self-care (01) ==
LOC: LABPAT 07:20
PROVIDERS: ATTEND Urology
DX: Z01.818 Encounter for other preprocedural examination (principal); N39.3 Stress incontinence (female) (male); R35.0 Frequency of micturition; Z79.899 Other long term (current) drug therapy
CPT/HCPCS: 36415; 80048; 81003; 85025; 87086

== ENCOUNTER 2020-04-18 07:20 | Day surgery (SDC) | payer OTHER ==
[2020-04-16 14:50] VITALS: BMI 31.4
--- NOTE | 2020-04-17 15:34 | P.GSHP ---
History of Present Illness H&P Date: 04/17/20 54 yo male s/p RALP 07/2018 for a [id number] G8 ca prostate who has -2 ppd lee that has failed medication His uds donot show an unstable bladder. We discussed all the treatment options and he comes for an Advance sling. The risks , complications, alternatives and mesh controversy have been explained understood and accepted He comes for this procedure. He remains in remission from his prostate cancer. - Constitutional Constitutional: Denies chills, Denies fever - EENT Eyes: denies blurred vision, denies pain Ears, nose, mouth and throat: Denies headache, Denies sore throat - Cardiovascular Cardiovascular: Denies chest pain, Denies shortness of breath - Respiratory Respiratory: Denies cough, Denies 7 - Gastrointestinal Gastrointestinal: Denies abdominal pain, Denies diarrhea, Denies nausea, Denies vomiting - Genitourinary (Female) Genitourinary: Denies dysuria, Denies hematuria - Genitourinary (Male) Genitourinary: Denies dysuria, Denies hematuria - Musculoskeletal Musculoskeletal: Denies myalgias - Integumentary Integumentary: Denies pruritus, Denies rash - Neurological Neurological: Denies numbness, Denies weakness - Psychiatric Psychiatric: Denies anxiety, Denies depression - Endocrine Endocrine: Denies fatigue, Denies weight change Past Medical History Past Medical History: Chest Pain / Angina, Hyperlipidemia, Hypertension, Sleep Apnea/CPAP/BIPAP Additional Past Medical History / Comment(s): kidney stones in the past. USES C PAP History of Any Multi-Drug Resistant Organisms: None Reported Past Surgical History: Appendectomy, Heart Catheterization With Stent, Prostate Surgery Additional Past Surgical History / Comment(s): colonoscopy negative. 5 HEART STENTS Past Anesthesia/Blood Transfusion Reactions: No Reported Reaction Additional Past Anesthesia/Blood Transfusion Reaction / Comment(s): no hx of surgeries Date of Last Stent Placement:: 06/25/2018 Past Psychological History: No Psychological Hx Reported Smoking Status: Never smoker Past Alcohol Use History: None Reported Past Drug Use History: None Reported - Past Family History Father Family Medical History: Congestive Heart Failure (CHF), Diabetes Mellitus, Myocardial Infarction ([place]) Additional Family Medical History / Comment(s): CABG, coronary ablation, coronary stentskidney and liver failure - passed at 72 Mother Family Medical History: Cancer Additional Family Medical History / Comment(s): breast cancer Medications and Allergies Home Medications Medication Instructions Recorded Confirmed Type Aspirin 81 mg PO DAILY 10/22/15 04/16/20 History Ferrous Sulfate [Iron (65 MG 325 mg PO DAILY 09/17/16 04/16/20 History Elemental)] Multivitamins, Thera [Multivitamin 1 tab PO DAILY 09/17/16 04/16/20 History (formulary)] Metoprolol Tartrate [Lopressor] 12.5 mg PO QAM 08/12/18 04/16/20 History Atorvastatin Calcium [Lipitor] 80 mg PO HS 02/27/19 04/16/20 History Isosorbide Mononitrate ER [Imdur] 60 mg PO QAM #30 tab.er.24h 03/01/19 04/16/20 Rx Tamsulosin [Flomax] 0.4 mg PO DAILY #7 cap 12/25/19 04/16/20 Rx Allergies Allergy/AdvReac Type Severity Reaction Status Date / Time oxycodone HCl [From Percocet] AdvReac VOMITING, Verified 04/16/20 14:38 HOT FLASHES, ROOM SPINNING Surgical - Exam - General well developed, well nourished, no distress - Eyes PERRL - ENT no hearing loss - Neck trachea midline - Respiratory normal expansion, normal respiratory effort - Cardiovascular Rhythm: regular - Abdomen Abdomen: soft, non tender Hernia: none - Genitourinary prostate absent. normal penis with no external lesions, testicles present - Rectum Rectum: normal sphincter tone - Integumentary no rash, no growths - Neurologic normal coordination, normal sensation - Musculoskeletal normal gait, normal posture - Psychiatric oriented to time, oriented to person, oriented to place, speech is normal, memory intact Assessment and Plan Assessment: Impression: LEE post RALP Plan: Advance male sling
[~2020-04-18 07:20] MED LIST changes: +AMPICILLIN 1,000 MG in SODIUM CHLORIDE 0.9% 50 ML IVPB ONE; -DEXAMETHASONE SOD PHOSPHATE 10 MG/ML 1 ML VIAL IV ONE; +DEXAMETHASONE SOD PHOSPHATE 4 MG/ML 1 ML VIAL IV ONE; +GENTAMICIN 120 MG in SODIUM CHLORIDE 0.9% 100 ML IVPB ONE; -HEPARIN SODIUM,PORCINE 5,000 UNIT/ML 1 ML VIAL SQ ONE; +HYDROmorphone 0.5 MG/0.5 ML SYRINGE IVP PRN; +LACTATED RINGERS 1,000 ML IV SCH; -MIDAZOLAM 2 MG/2 ML VIAL IV PRN; +ONDANSETRON 4 MG/2 ML VIAL IVP ONE; -SCOPOLAMINE 1.5MG/72HR PATCH TRANSDERM ONE; -ceFAZolin IN SWFI 2 GM/20 ML SYRINGE IVP ONE; -fentaNYL (PF) 50 MCG/ML 2 ML AMP IV PRN
[2020-04-18] MEDS ORDERED: ROCURONIUM 10 MG/ML (10 ML VIAL) IV ONE (08:26)
[2020-04-18] MEDS ORDERED: MIDAZOLAM 2 MG/2 ML VIAL ONE (08:26)
[2020-04-18] MEDS ORDERED: SUCCINYLCHOLINE CHLORIDE 100 MG/5 ML SYR IV ONE (08:26)
[2020-04-18] MEDS ORDERED: LIDOCAINE 1% INJ 10MG/ML (20 ML MDV) ONE (08:26)
[2020-04-18] MEDS ORDERED: fentaNYL (PF) 50 MCG/ML 2 ML AMP ONE (08:26)
[2020-04-18] MEDS ORDERED: PROPOFOL 10 MG/ML 20 ML VIAL IV ONE (08:26)
[2020-04-18] MEDS ORDERED: NEOSTIGMINE 1 MG/ML 10 ML VIAL ONE (08:26)
[2020-04-18] MEDS ORDERED: GLYCOPYRROLATE 0.2 MG/ML 2 ML VIAL ONE (08:26)
[2020-04-18] MEDS ORDERED: GENTAMICIN 80 MG in SODIUM CHLORIDE 0.9% 200 ML IRRIGATION ONE (08:58)
--- NOTE | 2020-04-18 10:11 | P.OP ---
Date of Procedure: 04/18/20 Preoperative Diagnosis: Stress urinary incontinence post-radical prostatectomy Postoperative Diagnosis: Same Procedure(s) Performed: Placement of advance XP male urinary sling, cystoscopy Anesthesia: CANDY Surgeon: Brian Kraus [employer] Agent #1: Kevin Romeo Estimated Blood Loss (ml): 50 Pathology: none sent Condition: stable Disposition: PACU Indications for Procedure: The patient is 54. He has persistent stress incontinence urine half post- radical prostatectomy. His failed medical management. He wears one to 2 pads per day. Urodynamics and cystoscopy did not identify anything other than the stress incontinence. We discussed all treatment options. He comes for an advance XP sling medications including injury to adjacent organs urine retention failure to control incontinence been explained and understood and accepted. Also discussed the mesh controversy and infection. Description of Procedure: Patient is brought to the operating suite. He is given a general endotracheal anesthesia. He's placed lithotomy position. A sterile shave prep is administered. The rectum was with a Steri-Drape. I then place a cystoscopy drape on the patient. A midline incision from the base of the scrotum to above the rectum is made. I dissected dissect through the subcutaneous tissue. I identified the bulbo spongiosum muscle which is opened in the midline. I exposed the urethra. Dissect down to the perineal body and make incision in the central tendon releasing the proximal urethra. I controlled bleeding with electrocautery and 4-0 Vicryl. I then pass the abdomen advance introducers through the inguinal incisions around the pubis into the peroneal exposed opening. I go lateral to the urethra bilaterally. I then attached the graft to the urethra with interrupted 4-0 Vicryl. I then perform cystoscopy to make sure there is no urethral injury and there is none. I then tensioned the graft to make sure it coapts the urethra. It does so nicely. I then pass a 12-Croat[place] catheter into the bladder to make sure there is no bleeding and the catheter can easily pass. I then irrigate the wound thoroughly. The wound is closed with 2 layers with 3-0 chromic and then 4-0 Vicryl. The inguinal incisions are closed with 4-0 Vicryl also. Prior to this the excess graft was excised. The wound is dressed the patient is awakened and returned recovery room good condition. Blood loss is approximately 50 mL. If he urinates he'll be discharged home later today.
[2020-04-18 10:19] VITALS: TEMP 96.9
[2020-04-18] MEDS ORDERED: KETOROLAC 15 MG/ML 1 ML VIAL IVP ONE (10:23)
[2020-04-18 10:26] VITALS: RESP 16
[2020-04-18] MEDS ORDERED: LACTATED RINGERS 1,000 ML IV ONE (11:00)
[2020-04-18 14:52] VITALS: BP 131/76; PULSE 65
== END 2020-04-18 15:57 | disposition home or self-care (01) ==
LOC: OR 07:20
PROVIDERS: ATTEND Urology
DX: N39.3 Stress incontinence (female) (male) (principal); Z79.899 Other long term (current) drug therapy; Z88.8 Allergy status to other drugs, medicaments and biological substances; I10 Essential (primary) hypertension; E78.5 Hyperlipidemia, unspecified; Z95.5 Presence of coronary angioplasty implant and graft; G47.33 Obstructive sleep apnea (adult) (pediatric); Z99.89 Dependence on other enabling machines and devices; Z87.442 Personal history of urinary calculi; F32.9 Major depressive disorder, single episode, unspecified; Z90.79 Acquired absence of other genital organ(s); Z88.2 Allergy status to sulfonamides; C61 Malignant neoplasm of prostate; Z82.49 Family history of ischemic heart disease and other diseases of the circulatory system; Z83.3 Family history of diabetes mellitus; Z80.3 Family history of malignant neoplasm of breast; Z79.82 Long term (current) use of aspirin
CPT/HCPCS: 53440; C1771; J2250; J1580; J1100; J2710; J2405; J2001; J3010; J0290; J1885; J0330; J2704

== ENCOUNTER → 2020-06-12 | Outpatient (CLI) | payer OTHER ==
--- NOTE | 2020-06-12 17:57 | PN ---
PROGRESS NOTE This patient is known to have obstructive sleep apnea. The patient is coming in for his annual check. Since his last evaluation, he has lost around 33 pounds and is feeling much better. He is compliant with his CPAP unit. On average he is using the machine around 6 to 7 hours per night, and his AHI is down to 1.4 while being on treatment. He is currently at a CPAP pressure of 11 cm of water, which is the original pressure that was set at the time of his diagnosis. His CPAP use for more than 4 hours is 100%. He has no complaints otherwise for now. He is using an AirFit P10 nose pillow, and he wants his supplies to be refilled. He is also seeking a ClimateLine. In terms of his prostate cancer, he has undergone prostatectomy and the patient was having occasional leaks, for which he underwent further interventions by Urology. REVIEW OF SYSTEMS: Fourteen-point review of systems was done. Positive findings are all mentioned above in the history of present illness. PHYSICAL EXAMINATION: BP is 113/77, pulse 83, respirations 16, temperature 98.3, saturation 97% on room air. Height is 5 feet 11 inches, weight is 230. Vest score is 4. BMI is 31.4. GENERAL APPEARANCE: Calm, comfortable. HEAD: Atraumatic, normocephalic. NECK: Supple. No JVD. No goiter or neck masses. LUNGS: Clear to auscultation. HEART: Heart sounds are regular rate and rhythm. Normal S1, S2. No S3, S4. No murmurs. ABDOMEN: Soft, nontender. No organomegaly. EXTREMITIES: No edema. No cyanosis or clubbing. IMPRESSION: 1. Obstructive sleep apnea, currently on CPAP pressure of 10 cm of water. Treatment continues to be successful. 2. Obesity with interval weight loss on the order of 33 pounds. 3. Prostate cancer. 4. Coronary artery disease with previous coronary artery intervention and stenting. PLAN: 1. Keep CPAP at the same level of pressure of 10. 2. Offer the patient an AirFit P10 nose pillow and refill his supplies, including a ClimateLine. 3. See me back in a year's time. Encourage further weight loss. May consider re- evaluation of the severity of his sleep apnea once the patient's weight plateaus. The final decision will be made in a year's time. MMODL / IJN: [id number] /
== END | disposition home or self-care (01) ==
LOC: SLEEP 16:35
PROVIDERS: ATTEND Internal Medicine Critical Care Medicine
DX: G47.33 Obstructive sleep apnea (adult) (pediatric) (principal); E66.9 Obesity, unspecified; C61 Malignant neoplasm of prostate; I25.10 Atherosclerotic heart disease of native coronary artery without angina pectoris; Z99.89 Dependence on other enabling machines and devices

== ENCOUNTER → 2020-06-18 | Outpatient (CLI) | payer OTHER | END | disposition home or self-care (01) | LOC: LABWHC1 14:13 | PROVIDERS: ATTEND Urology | DX: C61 Malignant neoplasm of prostate (principal) | CPT/HCPCS: 36415; 84153 ==

== ENCOUNTER → 2020-06-26 | Outpatient (CLI) | payer OTHER ==
--- NOTE | 2020-06-26 15:28 | XR ---
Left shoulder HISTORY: Pain, S 40.01 2A 3 views of left shoulder Distal acromion is downturned. Bone mineralization, joint spaces and alignment are maintained. Left l talon apex as visualized is unremarkable. No fracture or dislocation. IMPRESSION: Correlate for impingement. Shoulder MRI may be of benefit.
== END | disposition home or self-care (01) ==
LOC: RADXRMAIN 15:07
PROVIDERS: ATTEND Emergency Medicine
DX: S40.012A Contusion of left shoulder, initial encounter (principal)

== ENCOUNTER → 2021-03-11 | Outpatient (CLI) | payer OTHER ==
[2021-03-11 11:44] LABS: Chol/HDL Ratio 2.92 Ratio; HDL Cholesterol 48.9 mg/dL (40.00-60.00); LDL Cholesterol,Calculated 65.5 mg/dL (0.0-131.0); VLDL Calculation 28.6 mg/dL (5.00-40.00)
== END | disposition home or self-care (01) ==
LOC: LABWHC1 07:39
PROVIDERS: ATTEND Internal Medicine Cardiovascular Disease
DX: I25.10 Atherosclerotic heart disease of native coronary artery without angina pectoris (principal); E78.5 Hyperlipidemia, unspecified
CPT/HCPCS: 36415; 80061; 84450; 84460

== ENCOUNTER → 2021-06-25 | Outpatient (CLI) | payer OTHER ==
--- NOTE | 2021-06-25 16:46 | PN ---
PROGRESS NOTE This 55-year-old male patient is coming in for an annual check regarding obstructive sleep apnea. The patient remains on a CPAP pressure of 10 cm of water. Treatment remains successful. Compliance data that was collected over the past 30 days showed excellent use and the patient has been averaging around 8.3 hours of CPAP use per night; and CPAP use for more than 4 hours is 100%. Leak is around 24 L/minute and his AHI is down to 1.4. He is doing well. He is using the AirFit P10 nasal pillows. He is waking up refreshed and is alert during the day. No hypersomnia or sleepiness. He is still having occasional nighttime waking arousals because of urination, as the patient has undergone prostatectomy for prostate cancer and since then has been having issues with nocturia. Otherwise, his blood pressure is under good control. No other major comorbidities. No stroke. No congestive heart failure. No other cardiac arrhythmias. His current [place] score is down to 3. PHYSICAL EXAMINATION: VITAL SIGNS: His current vital signs are as follows: BP is 116/78, pulse 84, respirations 16, temperature 98.5, saturation 96% on room air. Height is 5 feet 11 inches, weight is 247, BMI 34.4. GENERAL APPEARANCE: Calm, comfortable. HEAD: Atraumatic, normocephalic. Neck is supple. No JVD. No goiter or neck masses. Mallampati class IV. LUNGS: Diminished; otherwise clear. Heart sounds are regular rate and rhythm. Normal S1, S2. No S3, S4. No murmurs. ABDOMEN: Soft, nontender. No organomegaly. EXTREMITIES: No edema. No cyanosis or clubbing. MEDICATIONS: Medication includes metoprolol 25 mg p.o. daily, Lipitor 80 mg p.o. daily, Myrbetriq 50 mg p.o. daily, multivitamin, iron tablets 65 grams p.o. daily, aspirin 85 mg p.o. daily. IMPRESSION: 1. Symptomatic obstructive sleep apnea. The patient continues to receive successful CPAP therapy at a pressure of 10 cm of water. 2. Obesity with fluctuating weight. After losing around 33 pounds, the patient has gained some pounds back. 3. Prostate cancer with previous prostatectomy. 4. Nocturia. 5. Coronary artery disease with previous coronary stenting. 6. Hyperlipidemia. PLAN: 1. Continue CPAP therapy at a pressure of 10. 2. Compliance data was checked. 3. Keep the patient on an AirFit P10 nasal pillow. 4. Encourage weight loss. 5. See me back in the office in a year's time in followup, earlier if needed. Treatment is successful for now. EMMANUELLE / SANDHYA: [id number] /
== END ==
LOC: SLEEP 14:58
PROVIDERS: ATTEND Internal Medicine Critical Care Medicine
DX: G47.33 Obstructive sleep apnea (adult) (pediatric) (principal); E66.9 Obesity, unspecified; R35.1 Nocturia; I25.10 Atherosclerotic heart disease of native coronary artery without angina pectoris; E78.5 Hyperlipidemia, unspecified; Z90.79 Acquired absence of other genital organ(s); Z95.5 Presence of coronary angioplasty implant and graft; Z68.34 Body mass index [BMI] 34.0-34.9, adult; Z99.89 Dependence on other enabling machines and devices; Z88.5 Allergy status to narcotic agent

== ENCOUNTER 2021-07-18 08:48 | Emergency (ER) | payer OTHER ==
[2021-07-18 08:55] VITALS: BP 126/71; PULSE 72; RESP 16; TEMP 98
[2021-07-18] MEDS ORDERED: KETOROLAC 30 MG/ML 1 ML VIAL IVP STA (09:01)
[2021-07-18] MEDS ORDERED: HYDROmorphone 1 MG/ML 1 ML SYRINGE IVP STA ×2 (09:01→09:06)
[2021-07-18] MEDS ORDERED: ONDANSETRON 4 MG/2 ML VIAL IVP STA ×2 (09:06→11:09)
[2021-07-18] MEDS ORDERED: SODIUM CHLORIDE 0.9% 500 ML 500 ML IV ONE (09:15)
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
[2021-07-18] MEDS ORDERED: ACETAMINOPHEN TAB 500 MG TAB PO STA (09:20)
[2021-07-18] MEDS ORDERED: DIPH,PERTUS(ACELL)TETVAC-LF 0.5 ML VIAL IM ONE (10:42)
[2021-07-18] MEDS ORDERED: HYDROmorphone 0.5 MG/0.5 ML SYRINGE IVP STA (11:09)
[2021-07-18] MEDS ORDERED: SODIUM CHLORIDE 0.9% 1,000 ML IV ONE (11:10)
[2021-07-18] MEDS ORDERED: HYDROmorphone 1 MG/ML 1 ML SYRINGE IVP PRN (11:12)
== END 2021-07-18 11:17 | disposition other institution (70) ==
LOC: EC 08:48
DX: T24.201A Burn of second degree of unspecified site of right lower limb, except ankle and foot, initial encounter (principal); T31.0 Burns involving less than 10% of body surface; I25.10 Atherosclerotic heart disease of native coronary artery without angina pectoris; E78.5 Hyperlipidemia, unspecified; Z79.82 Long term (current) use of aspirin; Z88.5 Allergy status to narcotic agent; Z87.442 Personal history of urinary calculi; Z85.46 Personal history of malignant neoplasm of prostate; Z23 Encounter for immunization; X12.XXXA Contact with other hot fluids, initial encounter
CPT/HCPCS: 99284; 96374; 96375 ×2; 96376 ×2; 90471; 90715; J2405; J1885; J1170 ×2

== ENCOUNTER 2022-03-09 08:11 | Observation (INO) | payer OTHER ==
[2022-03-09] MEDS ORDERED: NITROGLYCERIN OINT 1 INCH/GM PACKET TOPICAL STA (08:28)
[2022-03-09] MEDS ORDERED: ASPIRIN 81 MG PO STA (08:28)
--- NOTE | 2022-03-09 08:32 | ED ---
General Adult HPI - General Chief complaint: Chest Pain Stated complaint: Chest pressure Time Seen by Provider: 03/09/22 08:15 Source: patient, RN notes reviewed, old records reviewed Mode of arrival: ambulatory Limitations: no limitations - History of Present Illness Initial comments: This is a 56-year-old male who presents emergency Department with a past medical history significant for coronary artery disease and multiple stent placements. Patient also has a history of high blood pressure strong family history of heart disease. Patient states since yesterday he rests he notices a heaviness on his chest and some mild shortness of breath. Patient states this is what occurred when he needed his first stenting. Patient denies any diaphoretic episodes. Patient denies any radiation of the pressure. Patient denies any nausea. Patient denies any abdominal pain. 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 Patient states the second time he needed a stent he had no symptoms at all. Patient denies any recent fever chills or cough per patient denies any swelling to the legs or calf tenderness. - Related Data Home Medications Medication Instructions Recorded Confirmed Aspirin 81 mg PO DAILY 10/22/15 04/18/20 Ferrous Sulfate [Iron (65 MG 325 mg PO DAILY 09/17/16 04/18/20 Elemental)] Multivitamins, Thera [Multivitamin 1 tab PO DAILY 09/17/16 04/18/20 (formulary)] Metoprolol Tartrate [Lopressor] 12.5 mg PO QAM 08/12/18 04/18/20 Atorvastatin Calcium [Lipitor] 80 mg PO HS 02/27/19 04/18/20 Previous Rx's Medication Instructions Recorded Isosorbide Mononitrate ER [Imdur] 60 mg PO QAM #30 tab.er.24h 03/01/19 Tamsulosin [Flomax] 0.4 mg PO DAILY #7 cap 12/25/19 Ketorolac [Toradol] 10 mg PO Q6HR PRN #20 tab 04/18/20 Allergies Allergy/AdvReac Type Severity Reaction Status Date / Time oxycodone HCl [From Percocet] AdvReac VOMITING, Verified 03/09/22 08:17 HOT FLASHES, ROOM SPINNING Review of Systems ROS Statement: Those systems with pertinent positive or pertinent negative responses have been documented in the HPI. ROS Other: All systems not noted in ROS Statement are negative. Past Medical History Past Medical History: Coronary Artery Disease (CAD), Cancer, Chest Pain / Angina, Hyperlipidemia Additional Past Medical History / Comment(s): slightly high cholestrol watching diet and taking fish oil, kidney stones in the past, prostate cancer History of Any Multi-Drug Resistant Organisms: None Reported Past Surgical History: Heart Catheterization With Stent, Prostate Surgery Additional Past Surgical History / Comment(s): colonoscopy negative , Stent x 5 Past Anesthesia/Blood Transfusion Reactions: No Reported Reaction Additional Past Anesthesia/Blood Transfusion Reaction / Comment(s): no hx of surgeries Date of Last Stent Placement:: 06/25/2018 Past Psychological History: No Psychological Hx Reported Smoking Status: Never smoker Past Alcohol Use History: None Reported Past Drug Use History: None Reported - Past Family History Father Family Medical History: Congestive Heart Failure (CHF), Diabetes Mellitus, Myocardial Infarction ([place]) Additional Family Medical History / Comment(s): CABG, coronary ablation, coronary stentskidney and liver failure - passed at 72 Mother Family Medical History: Cancer Additional Family Medical History / Comment(s): breast cancer General Exam - General Exam Comments Initial Comments: GENERAL: Patient is well-developed and well-nourished. Patient is nontoxic and well- hydrated and is in mild distress. ENT: Neck is soft and supple. No significant lymphadenopathy is noted. Oropharynx is clear. Moist mucous membranes. Neck has full range of motion without eliciting any pain. EYES: The sclera were anicteric and conjunctiva were pink and moist. Extraocular movements were intact and pupils were equal round and reactive to light. Eyelids were unremarkable. PULMONARY: Unlabored respirations. Good breath sounds bilaterally. No audible rales rhonchi or wheezing was noted. CARDIOVASCULAR: There is a regular rate and rhythm without any murmurs gallops or rubs. ABDOMEN: Soft and nontender with normal bowel sounds. SKIN: Skin is clear with no lesions or rashes and otherwise unremarkable. NEUROLOGIC: Patient is alert and oriented x3. Cranial nerves II through XII are grossly intact. Motor and sensory are also intact. Normal speech, volume and content. Symmetrical smile. MUSCULOSKELETAL: Normal extremities with adequate strength and full range of motion. No lower extremity swelling or edema. No calf tenderness. LYMPHATICS: No significant lymphadenopathy is noted PSYCHIATRIC: Normal psychiatric evaluation. Limitations: no limitations Course Vital Signs 03/09/22 03/09/22 03/09/22 08:13 08:34 09:27 Temperature 97.2 F L 98.6 F 97.6 F Pulse Rate 66 61 64 Respiratory 16 16 16 Rate Blood Pressure 171/91 142/81 132/85 O2 Sat by Pulse 99 97 100 Oximetry Medical Decision Making - Medical Decision Making EKG shows sinus rhythm at 65 bpm DE interval is 210 QRS is 117 QT interval 470 QTC is 419. Patient's EKG shows no ST segment elevation or depression. Chest x-ray showed no acute abnormality. I spoke with Dr. WHEELER agreed to admit the patient admitted the patient wrote admitting orders. I consult cardiology. - Lab Data Result diagrams: 03/09/22 08:33 03/09/22 08:33 Lab Results 03/09/22 03/09/22 03/09/22 Range/Units 08:33 08:33 08:33 WBC 6.3 (3.8-10.6) k/uL RBC 4.84 (4.30-5.90) m/uL Hgb 14.2 (13.0-17.5) gm/dL Hct 42.8 (39.0-53.0) % MCV 88.5 (80.0-100.0) fL MCH 29.5 (25.0-35.0) pg MCHC 33.3 (31.0-37.0) g/dL RDW 12.5 (11.5-15.5) % Plt Count 238 (150-450) k/uL MPV 8.1 Neutrophils % 61 % Lymphocytes % 28 % Monocytes % 6 % Eosinophils % 3 % Basophils % 1 % Neutrophils # 3.8 (1.3-7.7) k/uL Lymphocytes # 1.7 (1.0-4.8) k/uL Monocytes # 0.4 (0-1.0) k/uL Eosinophils # 0.2 (0-0.7) k/uL Basophils # 0.0 (0-0.2) k/uL PT 10.2 (9.0-12.0) sec INR 0.9 (<1.2) APTT 21.0 L (22.0-30.0) sec Sodium 140 (137-145) mmol/L Potassium 4.3 (3.5-5.1) mmol/L Chloride 106 (98-107) mmol/L Carbon Dioxide 21 L (22-30) mmol/L Anion Gap 13 mmol/L BUN 16 (9-20) mg/dL Creatinine 0.86 (0.66-1.25) mg/dL Est GFR (CKD-EPI)AfAm >90 (>60 ml/min/1.73 sqM) Est GFR (CKD-EPI)NonAf >90 (>60 ml/min/1.73 sqM) Glucose 133 H (74-99) mg/dL Calcium 9.2 (8.4-10.2) mg/dL Magnesium 1.9 (1.6-2.3) mg/dL Total Bilirubin 0.5 (0.2-1.3) mg/dL AST 39 (17-59) U/L ALT 41 (4-49) U/L Alkaline Phosphatase 74 (38-126) U/L Troponin I (0.000-0.034) ng/mL Total Protein 6.9 (6.3-8.2) g/dL Albumin 4.4 (3.5-5.0) g/dL 03/09/22 Range/Units 08:33 WBC (3.8-10.6) k/uL RBC (4.30-5.90) m/uL Hgb (13.0-17.5) gm/dL Hct (39.0-53.0) % MCV (80.0-100.0) fL MCH (25.0-35.0) pg MCHC (31.0-37.0) g/dL RDW (11.5-15.5) % Plt Count (150-450) k/uL MPV Neutrophils % % Lymphocytes % % Monocytes % % Eosinophils % % Basophils % % Neutrophils # (1.3-7.7) k/uL Lymphocytes # (1.0-4.8) k/uL Monocytes # (0-1.0) k/uL Eosinophils # (0-0.7) k/uL Basophils # (0-0.2) k/uL PT (9.0-12.0) sec INR (<1.2) APTT (22.0-30.0) sec Sodium (137-145) mmol/L Potassium (3.5-5.1) mmol/L Chloride (98-107) mmol/L Carbon Dioxide (22-30) mmol/L Anion Gap mmol/L BUN (9-20) mg/dL Creatinine (0.66-1.25) mg/dL Est GFR (CKD-EPI)AfAm (>60 ml/min/1.73 sqM) Est GFR (CKD-EPI)NonAf (>60 ml/min/1.73 sqM) Glucose (74-99) mg/dL Calcium (8.4-10.2) mg/dL Magnesium (1.6-2.3) mg/dL Total Bilirubin (0.2-1.3) mg/dL AST (17-59) U/L ALT (4-49) U/L Alkaline Phosphatase (38-126) U/L Troponin I <0.012 (0.000-0.034) ng/mL Total Protein (6.3-8.2) g/dL Albumin (3.5-5.0) g/dL Disposition Clinical Impression: Chest pain Disposition: ADMITTED IP TO THIS HOSP Referrals: Mitchell Wharton MD [Primary Care Provider] - 1-2 days Time of Disposition: 10:11
--- NOTE | 2022-03-09 08:48 | XR ---
EXAMINATION TYPE: XR chest 2V DATE OF EXAM: 03/09/2022 COMPARISON: 02/27/2019 HISTORY: Chest pain TECHNIQUE: Frontal and lateral views of the chest are obtained. FINDINGS: There is no focal air space opacity, pleural effusion, or pneumothorax seen. The cardiac silhouette size is within normal limits. The osseous structures are intact. IMPRESSION: No acute cardiopulmonary process.
[2022-03-09 08:56] LABS: Basophils % (A) 1 %; Eosinophils # (A) 0.2 k/uL (0-0.7); Eosinophils % (A) 3 %; HCT 42.8 % (39.0-53.0); HGB 14.2 gm/dL (13.0-17.5); Lymphocytes # (A) 1.7 k/uL (1.0-4.8); Lymphocytes % (A) 28 %; MCH 29.5 pg (25.0-35.0); MCHC 33.3 g/dL (31.0-37.0); MCV 88.5 fL (80.0-100.0); Mean Platelet Volume 8.1; Monocytes # (A) 0.4 k/uL (0-1.0); Monocytes % (A) 6 %; Neutrophils # (A) 3.8 k/uL (1.3-7.7); Neutrophils % (A) 61 %; Platelet Count 238 k/uL (150-450); RBC 4.84 m/uL (4.30-5.90); RDW 12.5 % (11.5-15.5); WBC 6.3 k/uL (3.8-10.6)
[2022-03-09 09:12] LABS: INR 0.9 (<1.2); Prothrombin Time 10.2 sec (9.0-12.0)
[2022-03-09 09:15] LABS: ALT 41 U/L (4-49); AST 39 U/L (17-59); African American GFR (CKD) >90 (>60 ml/min/1.73 sqM); Albumin 4.4 g/dL (3.5-5.0); Alkaline Phosphatase 74 U/L (38-126); Anion Gap 13 mmol/L; Blood Urea Nitrogen 16 mg/dL (9-20); Calcium 9.2 mg/dL (8.4-10.2); Carbon Dioxide 21 mmol/L (22-30); Chloride 106 mmol/L (98-107); Glucose 133 mg/dL (74-99); Magnesium 1.9 mg/dL (1.6-2.3); Non-African American GFR(CKD) >90 (>60 ml/min/1.73 sqM); Potassium 4.3 mmol/L (3.5-5.1); Sodium 140 mmol/L (137-145); Total Bilirubin 0.5 mg/dL (0.2-1.3); Total Protein 6.9 g/dL (6.3-8.2)
[2022-03-09] MEDS ORDERED: NITROGLYCERIN SL TABS 0.4 MG TAB SUBLINGUAL PRN (10:11)
[2022-03-09] MEDS: NITROGLYCERIN OINT 1 INCH/GM PACKET TOPICAL SCH ×2 (11:05→18:40)
[2022-03-09] MEDS ORDERED: CLOBETASOL PROP 0.05% CR 15GM TOPICAL PRN (15:35)
[2022-03-09] MEDS ORDERED: MAGNESIUM OXIDE 400 MG TAB PO SCH (21:00)
[2022-03-09] MEDS ORDERED: ATORVASTATIN 80 MG TAB PO SCH (21:00)
--- NOTE | 2022-03-09 23:44 | HP ---
HISTORY AND PHYSICAL CHIEF COMPLAINT: Chest pressure. HISTORY OF PRESENT ILLNESS: This is a 56-year-old gentleman with a past medical history of CAD stent and other medical issues, followed by Dr. Mitchell Wharton in the outpatient setting. 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 The patient is having on and off chest pain for the last 2 weeks and last night the patient had chest pressure across the chest. The patient came to [facility] and was admitted for evaluation and treatment. The troponins are negative. Cardiology has been consulted. There is no history of any fever, rigors, or chills. PAST MEDICAL HISTORY: CAD stent, hyperlipidemia. The rest of the history reviewed. HOME MEDICATIONS: Again reviewed include Flomax, doses and rest of medications reviewed. Not confirmed yet. ALLERGIES: Percocet. FAMILY HISTORY: Reviewed includes CHF, CAD. SOCIAL HISTORY: No history of smoking. REVIEW OF SYSTEMS: A 14-point review of systems is negative except as mentioned earlier. PHYSICAL EXAMINATION: VITAL SIGNS: Pulse is 60, blood pressure 113/85, respirations 16. HEENT: Conjunctivae normal. NECK: No JVD. CARDIOVASCULAR: S1, S2 muffled. RESPIRATIONS: Breath sounds diminished at the bases. No rhonchi. No crackles. ABDOMEN: Soft, nontender. LEGS: No edema. NERVOUS SYSTEM: No focal deficits. SKIN: No rash. JOINTS: No active arthropathy. LABS: Reviewed. CBC within normal limits. ASSESSMENT: 1. Chest pain, possible unstable angina. 2. History of coronary artery disease stent. 3. History of hyperlipidemia. 4. Multiple medical issues. RECOMMENDATIONS AND DISCUSSION: This is a 56-year-old gentleman presented with multiple complex medical issues. At this time, we will monitor the patient closely. Follow acute coronary syndrome protocol. Check the repeat troponin. Cardiology consultation. Antiplatelet agents. Resume the home medications once they are confirmed. Otherwise, prognosis guarded because of multiple complex medical issues and further recommendations to follow. MMODL / IJN: [id number] /
[2022-03-10] MEDS: NITROGLYCERIN OINT 1 INCH/GM PACKET TOPICAL SCH ×2 (03:52→05:42)
[2022-03-10 08:05] LABS: Glucose,Whole Blood 129 mg/dL (70-110)
[2022-03-10 08:52] VITALS: BP 133/87; PULSE 65; RESP 20; TEMP 98
[2022-03-10] MEDS ORDERED: MULTIVITAMINS, THERA 1 EACH TAB PO SCH (09:00)
[2022-03-10] MEDS ORDERED: ASPIRIN 81 MG PO SCH (09:00)
[2022-03-10] MEDS ORDERED: METOPROLOL SUCCINATE (ER) 25 MG TAB.ER.24H PO SCH ×2 (09:00→21:00)
[2022-03-10] MEDS ORDERED: ASPIRIN 325 MG TAB PO SCH (09:00)
[2022-03-10] MEDS ORDERED: ISOSORBIDE MONONITRATE ER 30 MG TAB.ER.24H PO SCH ×2 (09:00→21:00)
[2022-03-10 09:02] LABS: Chol/HDL Ratio 3.47 Ratio; LDL Cholesterol,Calculated 71.5 mg/dL (0.0-131.0)
--- NOTE | 2022-03-10 09:41 | P.CRDCN ---
History of Present Illness Consult date: 03/10/22 History of present illness: HISTORY OF PRESENT ILLNESS: This is a 56-year-old male with a past medical history significant for artery disease with previous stenting to the LAD and RCA, hypertension, and hyperlipidemia. Patient used to follow in the office with Dr. Gaytan and is scheduled to see Dr. Porter later this week. We have been asked to see the patient in consultation for chest pain. Patient examined at the bedside. Patient states he began having chest pain about two weeks ago. He states the pain occurs mainly in the evening when he is resting. He states that with exertion, he does not have chest pain. He states this is similar to his previous [place]. He reports feeling SOB with the pain and felt like he was unable to take a deep breath. He denied any radiation of the pain. He states on Thursday night the pain was more severe so he took a nitro which relieved his pain so the following day he decided to come to the ER. He states he has been chest pain free since coming to the ER. * EKG reveals sinus mechanism with no signs of acute ischemia * Chest xray negative for acute process * Laboratory data: WBC 6.3. Hemoglobin 14.2. Platelet count 238. Sodium 140. Potassium 4.3. BUN 16. Creatinine 0.86. Troponin negative 3. * Current home cardiac medications include metoprolol succinate 25 mg daily, Imdur 30 mg daily, Lipitor 80 mg at night, and aspirin 81 mg daily * Most recent echocardiogram obtained in January 2019 revealed ejection fraction 55-60%, mild MR, mild TR * Cardiac catheterization history: January 2019 revealing stable coronary artery disease with critical lesion involving the PLV branch and also small branch of the PDA and mild to moderate disease in the circumflex and origin of the diagonal. Patent stents in the LAD and RCA. Films were reviewed with Dr. Calvo and medical management was recommended. REVIEW OF SYSTEMS: At the time of my exam: CONSTITUTIONAL: Denies fever or chills. HEENT: Denies blurred vision, vision changes, or eye pain. Denies hemoptysis CARDIOVASCULAR: Denies chest pain. Denies orthopnea. Denies PND. Denies palpitations RESPIRATORY: Denies shortness of breath. GASTROINTESTINAL: Denies abdominal pain. Denies nausea or vomiting. HEMATOLOGIC: Denies bleeding disorders. GENITOURINARY: Denies any blood in urine. SKIN: Denies pruitis. Denies rash. PHYSICAL EXAM: VITAL SIGNS: Reviewed. GENERAL: Well-developed in no acute distress. HEENT: Head is normocephalic. Pupils are equal, round. Sclerae anicteric. Mucous membranes of the mouth are moist. Neck supple. No JVD or thyromegaly LUNGS: Respirations even and unlabored. Lungs essentially clear to auscultation bilaterally. HEART: Regular rate and rhythm. S1 and S2 heard. ABDOMEN: Soft. Nondistended. Nontender. EXTREMITIES: Normal range of motion. No clubbing or cyanosis. Peripheral pulses intact. No lower extremity edema NEUROLOGIC: Awake and alert. Oriented x 3. ASSESSMENT: Chest pain Coronary artery disease with previous PCI Hypertension Hyperlipidemia PLAN: Obtain 2D echo to assess cardiac structure and function Resume home cardiac medications Patient to undergo stress echo today to assess for ischemia Further recommendations pending patient course Nurse practitioner note has been reviewed by physician. Signing provider agrees with the documented findings, assessment, and plan of care. Past Medical History Past Medical History: Coronary Artery Disease (CAD), Cancer, Chest Pain / Angina, Hyperlipidemia Additional Past Medical History / Comment(s): slightly high cholestrol watching diet and taking fish oil, kidney stones in the past, prostate cancer History of Any Multi-Drug Resistant Organisms: None Reported Past Surgical History: Heart Catheterization With Stent, Prostate Surgery Additional Past Surgical History / Comment(s): colonoscopy negative , Stent x 5 Past Anesthesia/Blood Transfusion Reactions: No Reported Reaction Additional Past Anesthesia/Blood Transfusion Reaction / Comment(s): no hx of surgeries Date of Last Stent Placement:: 06/25/2018 Past Psychological History: No Psychological Hx Reported Smoking Status: Never smoker Past Alcohol Use History: None Reported Past Drug Use History: None Reported - Past Family History Father Family Medical History: Congestive Heart Failure (CHF), Diabetes Mellitus, Myocardial Infarction ([place]) Additional Family Medical History / Comment(s): CABG, coronary ablation, coronary stentskidney and liver failure - passed at 72 Mother Family Medical History: Cancer Additional Family Medical History / Comment(s): breast cancer Medications and Allergies Home Medications Medication Instructions Recorded Confirmed Type Aspirin 81 mg PO DAILY 10/22/15 03/09/22 History Multivitamins, Thera [Multivitamin 1 tab PO DAILY 09/17/16 03/09/22 History (formulary)] Atorvastatin Calcium [Lipitor] 80 mg PO HS 02/27/19 03/09/22 History Clobetasol Propionate [Temovate 1 applic TOPICAL BID PRN 03/09/22 03/09/22 History 0.05% Cream] Isosorbide Mononitrate ER [Imdur] 30 mg PO DAILY 03/09/22 03/09/22 History Magnesium 250 mg PO HS 03/09/22 03/09/22 History Metoprolol Succinate (ER) [Toprol 25 mg PO DAILY 03/09/22 03/09/22 History Xl] Allergies Allergy/AdvReac Type Severity Reaction Status Date / Time oxycodone HCl [From Percocet] AdvReac VOMITING, Verified 03/09/22 14:18 HOT FLASHES, ROOM SPINNING Physical Exam Vitals: Vital Signs Temp Pulse Pulse Pulse Resp BP BP 03/10/22 07:00 98.0 F 65 20 133/87 03/10/22 02:46 97.8 F 68 17 151/66 03/09/22 19:16 98.0 F 66 16 129/77 03/09/22 16:28 97.8 F 56 L 18 143/86 03/09/22 16:00 97.9 F 64 16 122/74 03/09/22 14:01 97.8 F 63 16 122/76 03/09/22 12:52 77 16 144/83 03/09/22 11:02 70 16 122/85 03/09/22 10:28 60 16 139/85 Pulse Ox 03/10/22 07:00 97 03/10/22 02:46 98 03/09/22 19:16 95 03/09/22 16:28 98 03/09/22 16:00 100 03/09/22 14:01 100 03/09/22 12:52 99 03/09/22 11:02 98 03/09/22 10:28 100 Intake and Output 03/09/22 03/10/22 03/10/22 22:59 06:59 14:59 Intake Total 290 Balance 290 Intake: Oral 240 Other 50 Other: Weight 113.398 kg Results 03/09/22 08:33 03/09/22 08:33 Cardiac Enzymes 03/09/22 03/09/22 03/09/22 Range/Units 08:33 12:03 15:02 Troponin I <0.012 <0.012 <0.012 (0.000-0.034) ng/mL Coagulation 03/09/22 Range/Units 08:33 PT 10.2 (9.0-12.0) sec APTT 21.0 L (22.0-30.0) sec Lipids 03/10/22 Range/Units 06:08 Triglycerides 137.00 (0.00-149.00) mg/dL Cholesterol 139.00 (0.00-200.00) mg/dL HDL Cholesterol 40.10 (40.00-60.00) mg/dL Cholesterol/HDL Ratio 3.47 Ratio Current Medications Generic Name Dose Route Start Last Admin Trade Name Freq PRN Reason Stop Dose Admin Aspirin 81 mg 03/10/22 09:00 03/10/22 08:57 Aspirin 81 Mg PO 81 mg DAILY [facility] Administration Atorvastatin Calcium 80 mg 03/09/22 21:00 03/09/22 20:34 Atorvastatin 80 Mg Tab PO 80 mg HS [facility] Administration Clobetasol Propionate 1 applic 03/09/22 15:35 Clobetasol Prop 0.05% Cr 15gm TOPICAL BID PRN Rash Isosorbide Mononitrate 30 mg 03/10/22 09:00 03/10/22 08:57 Isosorbide Mononitrate Er 30 Mg Tab.Er.24h PO 30 mg DAILY [facility] Administration Magnesium Oxide 400 mg 03/09/22 21:00 03/09/22 20:34 Magnesium Oxide 400 Mg Tab PO 400 mg HS [facility] Administration Metoprolol Succinate 25 mg 03/10/22 09:00 Metoprolol Succinate (Er) 25 Mg Tab.Er.24h PO DAILY [facility] Multivitamins 1 each 03/10/22 09:00 03/10/22 08:56 Multivitamins, Thera 1 Each Tab PO 1 each DAILY [facility] Administration Nitroglycerin 0.4 mg 03/09/22 10:11 Nitroglycerin Sl Tabs 0.4 Mg Tab SUBLINGUAL Q5M PRN Chest Pain Intake and Output 03/09/22 03/10/22 03/10/22 22:59 06:59 14:59 Intake Total 290 Balance 290 Intake: Oral 240 Other 50 Other: Weight 113.398 kg 03/09/22 08:33 03/09/22 08:33
[2022-03-10 12:31] LABS: Glucose,Whole Blood 107 mg/dL (70-110)
--- NOTE | 2022-03-12 13:51 | CA ---
Transthoracic Echo Report Name: Ethan Khalil Age: 56 Gender: M : 1965 Exam Date: 03/10/2022 11:07 Exam Location: [place] Echo Ht (in): 71 Wt (lb): 250 Ordering Physician: Queta Burger Attending/Referring Phys: [id number], Jennyfer Core Driller Millicent Cantrell, RDCS Procedure CPT: Indications: LV function Cardiac Hx: Technical Quality: Fair Contrast 1: Total Dose (mL): Contrast 2: Total Dose (mL): MEASUREMENTS (Male / Female) Normal Values 2D ECHO LV Diastolic Diameter PLAX 4.3 cm 4.2 - 5.9 / 3.9 - 5.3 cm LV Systolic Diameter PLAX 3.1 cm IVS Diastolic Thickness 1.2 cm 0.6 - 1.0 / 0.6 - 0.9 cm LVPW Diastolic Thickness 1.1 cm 0.6 - 1.0 / 0.6 - 0.9 cm LV Relative Wall Thickness 0.6 RV Internal Dim ED PLAX 3.4 cm LA Systolic Diameter LX 3.5 cm 3.0 - 4.0 / 2.7 - 3.8 cm M-MODE Aortic Root Diameter MM 3.4 cm MV E Point Septal Separation 0.7 cm AV Cusp Separation MM 2.4 cm DOPPLER AV Peak Velocity 106.8 cm/s AV Peak Gradient 4.6 mmHg MV Area PHT 3.5 cm??? Mitral E Point Velocity 49.5 cm/s Mitral A Point Velocity 67.6 cm/s Mitral E to A Ratio 0.7 MV Deceleration Time 217.6 ms MV E' Velocity 8.5 cm/s Mitral E to MV E' Ratio 5.8 FINDINGS Left Ventricle Left ventricular ejection fraction is estimated at 60-65 %. Left ventricular cavity size normal. Mildly increased septal wall thickness. Right Ventricle Mild right ventricular dilatation. Right Atrium Normal right atrial size. Left Atrium Mildly increased left atrial area. No evidence for an atrial septal defect. Mitral Valve Mitral valve thickened. No mitral stenosis, regurgitation or prolapse. Aortic Valve Trileaflet aortic valve. No aortic valve stenosis or regurgitation. Tricuspid Valve Structurally normal tricuspid valve. No tricuspid stenosis, regurgitation or prolapse. Pulmonic Valve Structurally normal pulmonic valve. Pericardium Normal pericardium. No pericardial effusion. Aorta Normal size aortic root and proximal ascending aorta. CONCLUSIONS Normal left ventricular ejection fraction 60-65% Mild LVH No pericardial effusion Previewed by: Dr. Elias Sol DO (Electronically Signed) Final Date: 10 March 2022 12:32
--- NOTE | 2022-03-12 13:53 | CA ---
Stress Echo Report Ethan Khalil Age: 56 Gender: M : 1965 Exam Date: 03/10/2022 10:36 Exam Location: [place] Echo Ht (in): 71 Wt (lb): 250 Ordering Physician: Queta Burger Referring Physician: [id number] [employer] Consultant: Millicent Cantrell RDCS Technologist Procedure CPT: Indication: CP ICD-9 Codes: Rhythm: Patient History: ANGINA, FAMILY HX OF HEART DISEASE, PRIOR CARDIAC CATHETERIZATION WITH STENTING (X5) Cardiac Medications: Medications in past 24 hours: Contrast: Stress Results Protocol: Oscar Total dose(mL): Exercise Duration (min:sec): Max ST Depression (mm): Angina Score: Yan Score: METS: 11.7 Resting HR: 70 Resting BP: 133 / 84 Peak HR: 164 Peak BP: 177 / 69 Max Predicted HR: 162 101 % Max Predicted HR Target HR: 138 Double Product: [id number] Stress Summary: BP Response: Reason for Termination: MAX EXERTION/TARGET HR Cardiac Symptoms: NO SYMPTOMS ECG Analysis Resting ECG: Stress ECG: Arrhythmia: Echo Analysis Resting Echo: Peak Echo Analysis: MEASUREMENTS (Male/Female) Normal Values CONCLUSIONS Patient underwent exercise stress echo with a Oscar protocol treadmill stress test. Patient exercised into Stage 3 for a total of minutes reaching a total of 11.7 METS. Patient's maximum heart rate was 164 which represented 101 % age-predicted maximum heart rate. There is no chest pain or pressure noted with exertion. Stress EKG portion: At baseline patient's EKG showed normal sinus rhythm, normal axis, no significant ST or T wave abnormalities. At peak exercise, EKG showed no significant change from baseline. Stress echo portion: 2-D echocardiogram was performed in the parasternal long, personal short, apical 2 and apical four-chamber views at rest, peak exercise and in recovery. At baseline, echocardiogram showed left ventricular ejection fraction 55% without wall motion abnormalities. With peak exercise, echocardiogram shows improvement in left ventricular ejection fraction, increase contractility, decrease in left ventricular end systolic dimension without wall motion abnormalities consistent with a normal response to exercise. Conclusions: 1. Normal EKG and echo response to exercise without evidence of inducible ischemia. 2. Good exercise capacity. 3. Left ventricular ejection fraction 55%. Dr. Elias Sol DO (Electronically Signed) Final Date: 10 March 2022 12:47
--- NOTE | 2022-03-14 09:55 | P.DS ---
Providers Date of admission: 03/09/22 10:15 Expected date of discharge: 03/10/22 Attending physician: Kenney Thurman MD Consults: 03/09/22 10:11 Consult Physician Urgent Consulting Provider: [facility] Consult Reason/Comments: Chest pain Do you want consulting provider notified?: Yes Primary care physician: Mitchell Wharton Hospital Course: Final diagnosis Chest pain, possible unstable angina History of coronary artery disease with stents Hyperlipidemia Full code Discharge disposition Patient is being discharged in a stable condition with guarded prognosis to home. Patient will follow-up with Dr. Wharton in the outpatient setting upon discharge. Patient is to also follow-up with cardiology Dr. Tellez as scheduled. Total time taken is greater than 35 minutes. Hospital course This is a 56-year-old male who was recently admitted with chest pain and was evaluated by cardiology recommending outpatient follow-up with Dr. Tellez and to continue with change in medications. Patient underwent stress echo and was cleared by cardiology. patient denies any chest pain and would like to go home. Currently no reports of chest pain, shortness of breath, or palpitations. Patient is afebrile. No reports of nausea or vomiting and patient is tolerating diet. Patient will be discharged home today Physical exam: Gen: This is a 56-year-old male awake, alert and oriented 3, well-developed, well-nourished, obese HEENT: Head is atraumatic, normocephalic. Pupils equal, round. Sclerae is anicteric. NECK: Supple. No JVD. No lymphadenopathy. No thyromegaly. LUNGS: Clear to auscultation. No wheezes or rhonchi. No intercostal retractions. HEART: Regular rate and rhythm. No murmur. ABDOMEN: Soft. Bowel sounds are present. No masses. No tenderness. EXTREMITIES: No pedal edema. No calf tenderness. NEUROLOGICAL: Patient is awake, alert and oriented x3. Cranial nerves 2 through 12 are grossly intact. Please refer to medication reconciliation sheet for a list of medications. The impression and plan of care has been dictated by Silvia Meehan, Nurse Practitioner as directed. Dr. Isela MD I have performed a history and examination and MDM of this patient, discussed the same with the dictator, and agree with the dictator's assessment and plan as written ,documented as a scribe. Based on total visit time, I have performed more than 50% of the visit. Patient Condition at Discharge: Stable Plan - Discharge Summary New Discharge Prescriptions: New Isosorbide Mononitrate ER [Imdur] 30 mg PO BID #60 tab Metoprolol Succinate (ER) [Toprol XL] 25 mg PO BID #60 tab Continue Aspirin 81 mg PO DAILY Multivitamins, Thera [Multivitamin (formulary)] 1 tab PO DAILY Atorvastatin Calcium [Lipitor] 80 mg PO HS Clobetasol Propionate [Temovate 0.05% Cream] 1 applic TOPICAL BID PRN PRN Reason: Rash Magnesium 250 mg PO HS Discontinued Isosorbide Mononitrate ER [Imdur] 30 mg PO DAILY Metoprolol Succinate (ER) [Toprol Xl] 25 mg PO DAILY Discharge Medication List Aspirin 81 mg PO DAILY 10/22/15 [History] Multivitamins, Thera [Multivitamin (formulary)] 1 tab PO DAILY 09/17/16 [History] Atorvastatin Calcium [Lipitor] 80 mg PO HS 02/27/19 [History] Clobetasol Propionate [Temovate 0.05% Cream] 1 applic TOPICAL BID PRN 03/09/22 [History] Magnesium 250 mg PO HS 03/09/22 [History] Isosorbide Mononitrate ER [Imdur] 30 mg PO BID #60 tab 03/10/22 [Rx] Metoprolol Succinate (ER) [Toprol XL] 25 mg PO BID #60 tab 03/10/22 [Rx] Follow up Appointment(s)/Referral(s): Mitchell Wharton MD [Primary Care Provider] - 1-2 days Sp Tellez MD [Family Provider] - 03/12/22 9:15 am () Patient Instructions/Handouts: Chest Pain (GEN), Cardiac Stress Test (GEN), Stress Echocardiogram (GEN) Activity/Diet/Wound Care/Special Instructions: Activity Limited until follow-up Follow-up with primary care provider on discharge Follow-up with cardiology as discussed Continue taking medications as prescribed Continue heart healthy diet Discharge Disposition: HOME SELF-CARE
== END 2022-03-10 15:09 | disposition home or self-care (01) ==
LOC: EC 08:11 → 6NMEDSUR 10:15
PROVIDERS: ADMIT Internal Medicine; ATTEND Internal Medicine
DX: R07.89 Other chest pain (principal); R06.02 Shortness of breath; I25.10 Atherosclerotic heart disease of native coronary artery without angina pectoris; I25.2 Old myocardial infarction; I10 Essential (primary) hypertension; E78.5 Hyperlipidemia, unspecified; E78.00 Pure hypercholesterolemia, unspecified; E66.9 Obesity, unspecified; Z68.34 Body mass index [BMI] 34.0-34.9, adult; Z87.442 Personal history of urinary calculi; Z85.46 Personal history of malignant neoplasm of prostate; Z95.5 Presence of coronary angioplasty implant and graft; Z98.890 Other specified postprocedural states; Z83.3 Family history of diabetes mellitus; Z82.49 Family history of ischemic heart disease and other diseases of the circulatory system; Z83.79 Family history of other diseases of the digestive system; Z80.3 Family history of malignant neoplasm of breast; Z79.82 Long term (current) use of aspirin; Z79.899 Other long term (current) drug therapy; Z88.5 Allergy status to narcotic agent
CPT/HCPCS: 99285; 36415; 93005; 93306; 93351; 80061; 80053; 83735; 84484; 85025; 85610; 85730; 71046; G0378 ×2

== ENCOUNTER 2023-04-09 19:00 | Emergency (ER) | payer BC ==
[2023-04-09 20:28] LABS: Basophils % (A) 0 %; Eosinophils # (A) 0.3 k/uL (0-0.7); Eosinophils % (A) 4 %; HGB 14.5 gm/dL (13.0-17.5); Lymphocytes # (A) 2.4 k/uL (1.0-4.8); Lymphocytes % (A) 31 %; MCH 30.2 pg (25.0-35.0); MCHC 33.7 g/dL (31.0-37.0); MCV 89.6 fL (80.0-100.0); Mean Platelet Volume 7.9; Monocytes # (A) 0.5 k/uL (0-1.0); Monocytes % (A) 6 %; Neutrophils # (A) 4.4 k/uL (1.3-7.7); Neutrophils % (A) 57 %; Platelet Count 228 k/uL (150-450); RDW 12.9 % (11.5-15.5); WBC 7.7 k/uL (3.8-10.6)
[2023-04-09 20:42] LABS: Partial Thromboplastin Time 24.2 sec (22.0-30.0); Prothrombin Time 10.6 sec (10.0-12.5)
[2023-04-09 20:44] LABS: ALT 29 U/L (4-49); AST 28 U/L (17-59); African American GFR (CKD) 86 (>60 ml/min/1.73 sqM); Albumin 4.3 g/dL (3.5-5.0); Alkaline Phosphatase 54 U/L (38-126); Anion Gap 11 mmol/L; Blood Urea Nitrogen 23 mg/dL (9-20); Calcium 9.8 mg/dL (8.4-10.2); Carbon Dioxide 27 mmol/L (22-30); Chloride 103 mmol/L (98-107); Glucose 94 mg/dL (74-99); Magnesium 1.9 mg/dL (1.6-2.3); Non-African American GFR(CKD) 75 (>60 ml/min/1.73 sqM); Potassium 4.3 mmol/L (3.5-5.1); Sodium 141 mmol/L (137-145); Total Bilirubin 0.5 mg/dL (0.2-1.3)
--- NOTE | 2023-04-09 20:49 | XR ---
EXAMINATION: XR chest 2V: 04/09/2023 8:18 PM CLINICAL INDICATION: Chest Pain TECHNIQUE: Departmental protocol COMPARISON: 03/09/2022 FINDINGS: The lungs are clear. The pleural spaces are negative. The cardiac silhouette is not enlarged. The remainder of the mediastinal silhouette is unremarkable. The skeletal structures and soft tissues are negative for acute findings. IMPRESSION: No acute radiographic process.
[2023-04-09 22:58] VITALS: RESP 16
--- NOTE | 2023-04-09 23:20 | ED ---
Chest Pain HPI - General Chief Complaint: Chest Pain Stated Complaint: palpitation Time Seen by Provider: 04/09/23 22:26 Source: patient, RN notes reviewed, old records reviewed Mode of arrival: ambulatory Limitations: no limitations - History of Present Illness Initial Comments: This is a 57-year-old male to the emergency room today for evaluation today. Patient presents for evaluation regards to chest pain. Patient does have history of heart disease with recurrent need for stents. History of significant coronary artery disease. Patient states the pain is persistent here in the ER despite taking nitro prior to arrival. No other illnesses lately patient's been feeling well known change in exertional dyspnea, no shortness breath or diaphoresis MD Complaint: chest pain -: hour(s) Onset: during rest, during exertion Pain Location: substernal, left chest Pain Radiation: none Severity: moderate Severity scale (1-10): 5 Consistency: constant Improves With: nothing Worsens With: nothing Anginal Symptoms: dyspnea, sense of impending doom Other Symptoms: palpitations Treatments Prior to Arrival: none - Related Data Home Medications Medication Instructions Recorded Confirmed Aspirin 81 mg PO DAILY 10/22/15 04/09/23 Multivitamins, Thera [Multivitamin 1 tab PO DAILY 09/17/16 04/09/23 (formulary)] Atorvastatin Calcium [Lipitor] 80 mg PO DAILY 02/27/19 04/09/23 Ferrous Sulfate [Feosol] 325 mg PO DAILY 07/28/22 04/09/23 Isosorbide Mononitrate ER [Imdur] 30 mg PO DAILY 07/28/22 04/09/23 Metoprolol Succinate (ER) [Toprol 25 mg PO DAILY 07/28/22 04/09/23 XL] Celecoxib [CeleBREX] 200 mg PO DAILY 04/09/23 04/09/23 Nitroglycerin Sl Tabs [Nitrostat] 0.4 mg SUBLINGUAL Q5M PRN 04/09/23 04/09/23 Tirzepatide [Mounjaro] 7.5 mg SQ SA 04/09/23 04/09/23 Allergies Allergy/AdvReac Type Severity Reaction Status Date / Time metformin AdvReac Nausea & Verified 04/09/23 22:57 Vomiting & Diarrhea oxycodone HCl [From Percocet] AdvReac VOMITING, Verified 04/09/23 22:57 HOT FLASHES, ROOM SPINNING Review of Systems ROS Statement: Those systems with pertinent positive or pertinent negative responses have been documented in the HPI. ROS Other: All systems not noted in ROS Statement are negative. Past Medical History Past Medical History: Coronary Artery Disease (CAD), Cancer, Chest Pain / Angina, Hyperlipidemia Additional Past Medical History / Comment(s): slightly high cholestrol watching diet and taking fish oil, kidney stones in the past, prostate cancer History of Any Multi-Drug Resistant Organisms: None Reported Past Surgical History: Heart Catheterization With Stent, Prostate Surgery Additional Past Surgical History / Comment(s): colonoscopy negative , Stent x 5 Past Anesthesia/Blood Transfusion Reactions: No Reported Reaction Additional Past Anesthesia/Blood Transfusion Reaction / Comment(s): no hx of surgeries Date of Last Stent Placement:: 06/25/2018 Past Psychological History: No Psychological Hx Reported Smoking Status: Never smoker Past Alcohol Use History: None Reported Past Drug Use History: None Reported - Past Family History Father Family Medical History: Congestive Heart Failure (CHF), Diabetes Mellitus, Myocardial Infarction ([place]) Additional Family Medical History / Comment(s): CABG, coronary ablation, coronary stentskidney and liver failure - passed at 72 Mother Family Medical History: Cancer Additional Family Medical History / Comment(s): breast cancer General Exam Limitations: no limitations General appearance: alert, in no apparent distress Head exam: Present: atraumatic, normocephalic, normal inspection Eye exam: Present: normal appearance, PERRL, EOMI. Absent: scleral icterus, conjunctival injection, periorbital swelling ENT exam: Present: normal exam, mucous membranes moist Neck exam: Present: normal inspection. Absent: tenderness, meningismus, lymphad enopathy Respiratory exam: Present: normal lung sounds bilaterally. Absent: respiratory distress, wheezes, rales, rhonchi, stridor Cardiovascular Exam: Present: regular rate, normal rhythm, normal heart sounds. Absent: systolic murmur, diastolic murmur, rubs, gallop, clicks GI/Abdominal exam: Present: soft, normal bowel sounds. Absent: distended, tenderness, guarding, rebound, rigid Extremities exam: Present: normal inspection, full ROM, normal capillary refill. Absent: tenderness, pedal edema, joint swelling, calf tenderness Back exam: Present: normal inspection Neurological exam: Present: alert, oriented X3, CN II-XII intact Psychiatric exam: Present: normal affect, normal mood Skin exam: Present: warm, dry, intact, normal color. Absent: rash Course Vital Signs 04/09/23 04/09/23 04/10/23 19:25 22:41 00:00 Temperature 98.6 F Pulse Rate 71 70 70 Respiratory 18 16 16 Rate Blood Pressure 145/90 128/83 111/75 O2 Sat by Pulse 98 94 L 94 L Oximetry 04/10/23 00:35 Temperature 98.7 F Pulse Rate 71 Respiratory 16 Rate Blood Pressure 123/77 O2 Sat by Pulse 94 L Oximetry - Reevaluation(s) Reevaluation #1: 04/09/23 Medical records reviewed Reevaluation #2: 04/09/23 Patient symptoms are improved here in the ER Patient does not lasted for cardiac evaluation further Reevaluation #3: Patient informed results and questions answered Reevaluation #4: Was pt. sent in by a medical professional or institution (, PA, PERSONAL CARE ASSISTANT, urgent care, hospital, or custodial...) When possible be specific @ -no Did you speak to anyone other than the patient for history (EMS, parent, family, police, friend...)? What history was obtained from this source @ -no Did you review nursing and triage notes (agree or disagree)? Why? @ -agree Are old charts reviewed (outside hosp., previous admission, EMS record, old EKG, old radiological studies, urgent care reports/EKG's, custodial records)? Report findings @ -yes Differential Diagnosis (chest pain, altered mental status, abdominal pain women, abdominal pain men, vaginal bleeding, weakness, fever, dyspnea, syncope, headache, dizziness, GI bleed, back pain, seizure, CVA, palpatations, mental health, musculoskeletal)? @ -prior EKG interpreted by me (3pts min.). @ -yes X-rays interpreted by me (1pt min.). @ -yes CT interpreted by me (1pt min.). @ -no U/S interpreted by me (1pt. min.). @ -no What testing was considered but not performed or refused? (CT, X-rays, U/S, labs)? Why? @ -none What meds were considered but not given or refused? Why? @ -none Did you discuss the management of the patient with other professionals (professionals i.e. , PA, PERSONAL CARE ASSISTANT, lab, RT, psych nurse, vp digital marketing social media and crm, vp digital marketing social media and crm, teacher, marine safety officer, case fitter)? Give summary @ -no Was smoking cessation discussed for >3mins.? @ -no Was critical care preformed (if so, how long)? @ -no Were there social determinants of health that impacted care today? How? (Homelessness, low income, unemployed, alcoholism, drug addiction, transpor tation, low edu. Level, literacy, decrease access to med. care, group home, rehab)? @ -none Was there de-escalation of care discussed even if they declined (Discuss DNR or withdrawal of care, Hospice)? DNR status @ -no What co-morbidities impacted this encounter? (DM, HTN, Smoking, COPD, CAD, Cancer, CVA, ARF, Chemo, Hep., AIDS, mental health diagnosis, sleep apnea, morbid obesity)? @ -none Was patient admitted / discharged? Hospital course, mention meds given and route, prescriptions, significant lab abnormalities, going to OR and other pertinent info. @ - Undiagnosed new problem with uncertain prognosis? @ -no Drug Therapy requiring intensive monitoring for toxicity (Heparin, Nitro, Insulin, Cardizem)? @ -no Were any procedures done? @ -no Diagnosis/symptom? @ - Acute, or Chronic, or Acute on Chronic? @ -Acute Uncomplicated (without systemic symptoms) or Complicated (systemic symptoms)? @ -Complicated Side effects of treatment? @ -no Exacerbation, Progression, or Severe Exacerbation? @ -exacerbation Poses a threat to life or bodily function? How? (Chest pain, [place], [place], pneumonia, PE, COPD, DKA, ARF, appy, cholecystitis, CVA, Diverticulitis, Homicidal, Suicidal, threat to staff... and all critical care pts) @ -yes Reevaluation #5: Differential Chest Pain: Stable Angina, Unstable Angina, STEMI, NSTEMI Aortic Dissection, Pneumothorax, Musculoskeletal, Esophageal Spasm GERD, Cholecystitis, Pancreatitis, Zoster, this is not meant to be an all-inclusive list. Chest Pain MDM - MDM 57 male to the emergency department for evaluation of chest pain with history of heart disease. Patient is having mild change in anginal type symptoms does not want to stay in the hospital for further evaluation management states he will see his orientor on an outpatient basis. Normal EKG no troponin here in the ER patient can be discharged home troponin is negative 2 Disposition Clinical Impression: Unstable angina pectoris, Chest pain, Intractable pain Disposition: HOME SELF-CARE Condition: Good Instructions (If sedation given, give patient instructions): Chest Pain (ED) Is patient prescribed a controlled substance at d/c from ED?: No Referrals: Mitchell Wharton MD [Primary Care Provider] - 1-2 days Time of Disposition: 00:30
[2023-04-10 00:37] VITALS: BP 123/77; PULSE 71; TEMP 98.7
== END 2023-04-10 00:36 | disposition home or self-care (01) ==
LOC: EC 19:00
DX: I25.110 Atherosclerotic heart disease of native coronary artery with unstable angina pectoris (principal); E78.5 Hyperlipidemia, unspecified; Z79.899 Other long term (current) drug therapy; Z88.8 Allergy status to other drugs, medicaments and biological substances; Z79.82 Long term (current) use of aspirin; Z88.5 Allergy status to narcotic agent
CPT/HCPCS: 36415; 71046; 80053; 83735; 84484; 85025; 85610; 85730; 93005; 99285

== ENCOUNTER 2023-05-08 10:35 | Day surgery (SDC) | payer BC ==
[2023-05-06 15:29] VITALS: BMI 30.4
[2023-05-08] MEDS ORDERED: LACTATED RINGERS 1,000 ML IV SCH (10:52)
[2023-05-08 11:19] LABS: Glucose,Whole Blood 88 mg/dL (70-110)
[2023-05-08 11:25] VITALS: TEMP 97.7
[2023-05-08] MEDS ORDERED: PROPOFOL 10 MG/ML 20 ML VIAL IV ONE (11:42)
--- NOTE | 2023-05-08 11:58 | P.PCN ---
Date of Procedure: 05/08/23 Procedure(s) Performed: BRIEF HISTORY: Patient is a 57-year-old pleasant white male scheduled for an elective colonoscopy as a part of screening for colon cancer. His last colonoscopy was 10 years ago. PROCEDURE PERFORMED: Colonoscopy. PREOPERATIVE DIAGNOSIS: Screening for colon cancer. IV sedation per Anesthesia. PROCEDURE: After informed consent was obtained, the patient, was brought into the endoscopy unit. IV sedation was administered by Anesthesia under continuous monitoring. Digital rectal examination was normal. Initially the Olympus CF-160 flexible video colonoscope was then inserted in the rectum, gradually advanced into the cecum without any difficulty. Careful examination was performed as the scope was gradually being withdrawn. Ileocecal valve and the appendiceal orifice were visualized and appeared normal. Prep was excellent. Mucosa of the cecum, ascending colon, transverse colon, descending colon, sigmoid colon, and rectum appeared normal. Scattered sigmoid diverticulosis Retroflexion was performed in the rectum and no lesions were seen. The patient tolerated the procedure well. IMPRESSION: Normal-appearing colon from rectum to cecum no evidence of colorectal neoplasia . Scattered sigmoid diverticulosis. RECOMMENDATIONS: Findings of this examination were discussed with the patient as well as his family. He was advised to have a screening colonoscopy in 10 years..
[2023-05-08 12:15] VITALS: BP 108/74; PULSE 72; RESP 16
== END 2023-05-08 12:52 | disposition home or self-care (01) ==
LOC: ORWHC2ENDO 10:35
PROVIDERS: ATTEND Internal Medicine Gastroenterology
DX: Z12.11 Encounter for screening for malignant neoplasm of colon (principal); K57.30 Diverticulosis of large intestine without perforation or abscess without bleeding; I25.10 Atherosclerotic heart disease of native coronary artery without angina pectoris; I10 Essential (primary) hypertension; E78.5 Hyperlipidemia, unspecified; G47.33 Obstructive sleep apnea (adult) (pediatric); Z79.82 Long term (current) use of aspirin; Z88.8 Allergy status to other drugs, medicaments and biological substances; Z88.5 Allergy status to narcotic agent; Z79.899 Other long term (current) drug therapy
CPT/HCPCS: 45378; J2704

== ENCOUNTER → 2024-08-10 | Outpatient (CLI) | payer OTHER | END | disposition home or self-care (01) | LOC: LABWHC1 08:23 | PROVIDERS: ATTEND Radiology Radiation Oncology | DX: C61 Malignant neoplasm of prostate (principal) | CPT/HCPCS: 36415; 84153 ==

== ENCOUNTER → 2024-10-19 | Outpatient (CLI) | payer OTHER | END | disposition home or self-care (01) | LOC: LABWHC1 09:31 | PROVIDERS: ATTEND Radiology Radiation Oncology | DX: C61 Malignant neoplasm of prostate (principal) | CPT/HCPCS: 36415; 84153 ==